=== PATIENT | male | born 1955 | race Caucasian/White ===

== ENCOUNTER 2016-04-06 12:00 | Outpatient (RCR) | payer BC ==
[2016-01-20 12:22] LABS: ADD PATHOLOGY DIFF REVIEW NO
[2016-01-20 12:26] LABS: MEAN CELL VOLUME 110 fl (80.0-100.0); MEAN CORPUSCULAR HGB CONC 34 g/dl (33.0-37.0); MEAN PLATELET VOLUME 10.2 fl (7.4-10.4); REDCELL DISTRIBUTION WIDTH-CV 17.8 % (11.5-14.5)
[2016-01-20 12:28] LABS: HEMATOCRIT 25.4 % (42.0-52.0); HEMOGLOBIN 8.7 g/dl (13.5-18.0); MEAN CORPUSCULAR HEMOGLOBIN 38 pg (27.0-31.0)
[2016-01-20 12:32] VITALS: BP 122/74; PULSE 69; TEMP 99
[2016-01-20 12:32] LABS: PLATELET COUNT 43 K/mm3 (130-400)
[2016-01-20 12:41] LABS: ADJUSTED CALCIUM 9.6 mg/dL (8.4-10.2); ALBUMIN 4.2 gm/dL (3.5-5.0); BILIRUBIN,TOTAL 0.7 mg/dL (0.0-1.0); CALCIUM 9.8 mg/dL (8.4-10.2); CREATININE, serum 0.7 mg/dL (0.66-1.25); POTASSIUM 4.6 mmol/L (3.4-5.0); TOTAL PROTEIN 6.5 gm/dL (6.4-8.2)
[2016-01-20 12:44] LABS: INR 1.1 (0.8-3.0); PROTHROMBIN TIME 12.1 SECONDS (9.7-12.8)
[2016-01-20 12:57] LABS: BAND 12 % (0-10); NEUTROPHILS 82 % (42.0-75.2); TOTAL CELLS COUNTED 100
[2016-01-20 12:58] LABS: PLATELET ESTIMATE DECREASED (NORMAL)
[2016-01-27 12:04] LABS: ADD PATHOLOGY DIFF REVIEW NO
[2016-01-27 12:10] LABS: MEAN CELL VOLUME 111 fl (80.0-100.0); MEAN CORPUSCULAR HGB CONC 34 g/dl (33.0-37.0); MEAN PLATELET VOLUME 11.2 fl (7.4-10.4); RED BLOOD COUNT 2.31 M/mm3 (4.20-5.60); REDCELL DISTRIBUTION WIDTH-CV 17.6 % (11.5-14.5); WHITE BLOOD COUNT 3.1 K/mm3 (4.8-10.8)
[2016-01-27 12:12] VITALS: BP 118/87; PULSE 86; TEMP 98.7
[2016-01-27 12:12] LABS: PROTHROMBIN TIME 36.1 SECONDS (9.7-12.8)
[2016-01-27 12:13] LABS: HEMATOCRIT 25.6 % (42.0-52.0); HEMOGLOBIN 8.8 g/dl (13.5-18.0); MEAN CORPUSCULAR HEMOGLOBIN 38 pg (27.0-31.0)
[2016-01-27 12:14] LABS: INR 3.1 (0.8-3.0); PLATELET COUNT 40 K/mm3 (130-400)
[2016-01-27 12:22] LABS: ADJUSTED CALCIUM 8.8 mg/dL (8.4-10.2); BILIRUBIN,TOTAL 0.7 mg/dL (0.0-1.0); CALCIUM 8.8 mg/dL (8.4-10.2); CREATININE, serum 0.62 mg/dL (0.66-1.25); POTASSIUM 4.3 mmol/L (3.4-5.0); TOTAL PROTEIN 6.5 gm/dL (6.4-8.2)
[2016-01-27 12:31] LABS: BAND 4 % (0-10); NEUTROPHILS 91 % (42.0-75.2); PLATELET ESTIMATE DECREASED (NORMAL); TOTAL CELLS COUNTED 100
[2016-01-29 15:13] LABS: KAPPA FREE LIGHT CHAIN-SERUM 9.47 mg/dL (()); KAPPA LAMBDA RATIO >374 (())
[2016-02-03 12:18] VITALS: BP 141/88; PULSE 78; TEMP 98.2
[2016-02-03 12:34] VITALS: BP 141/88; PULSE 86; TEMP 98.2
[2016-02-03 12:36] LABS: ADD PATHOLOGY DIFF REVIEW NO
[2016-02-03 12:50] LABS: ADJUSTED CALCIUM 9.4 mg/dL (8.4-10.2); ALBUMIN 3.7 gm/dL (3.5-5.0); BILIRUBIN,TOTAL 0.5 mg/dL (0.0-1.0); CALCIUM 9.2 mg/dL (8.4-10.2); CREATININE, serum 0.9 mg/dL (0.66-1.25); POTASSIUM 3.6 mmol/L (3.4-5.0); TOTAL PROTEIN 6.2 gm/dL (6.4-8.2)
[2016-02-03 12:51] LABS: MEAN CELL VOLUME 113 fl (80.0-100.0); MEAN CORPUSCULAR HGB CONC 34 g/dl (33.0-37.0); MEAN PLATELET VOLUME 10.9 fl (7.4-10.4); RED BLOOD COUNT 2.07 M/mm3 (4.20-5.60); REDCELL DISTRIBUTION WIDTH-CV 17.1 % (11.5-14.5); WHITE BLOOD COUNT 3.7 K/mm3 (4.8-10.8)
[2016-02-03 13:01] LABS: HEMATOCRIT 23.4 % (42.0-52.0); HEMOGLOBIN 7.9 g/dl (13.5-18.0); MEAN CORPUSCULAR HEMOGLOBIN 38 pg (27.0-31.0)
[2016-02-03 13:03] LABS: INR 5.1 (0.8-3.0); PROTHROMBIN TIME 59.1 SECONDS (9.7-12.8)
[2016-02-03 13:04] LABS: PLATELET COUNT 37 K/mm3 (130-400)
[2016-02-03 13:14] LABS: BAND 16 % (0-10); METAMYELOCYTE 2 % (0-0); MYELOCYTE 1 % (0-0); NEUTROPHILS 68 % (42.0-75.2); TOTAL CELLS COUNTED 100
[2016-02-03 13:15] LABS: ANISOCYTOSIS 1+; HYPOCHROMIA 1+
[2016-02-05] VITALS (9 sets, daily range): BP systolic 122–143; BP diastolic 84–99; PULSE 69–76; TEMP 98.3–98.5
[2016-02-05 16:05] LABS: INR 2.1 (0.8-3.0); PROTHROMBIN TIME 23.5 SECONDS (9.7-12.8)
[2016-02-10 12:23] LABS: ADD PATHOLOGY DIFF REVIEW NO
[2016-02-10 12:27] VITALS: BP 129/92; PULSE 77; TEMP 98.6
[2016-02-10 12:32] LABS: INR 1.9 (0.8-3.0); MEAN CELL VOLUME 102 fl (80.0-100.0); MEAN CORPUSCULAR HGB CONC 35 g/dl (33.0-37.0); MEAN PLATELET VOLUME 10.6 fl (7.4-10.4); RED BLOOD COUNT 3.03 M/mm3 (4.20-5.60); REDCELL DISTRIBUTION WIDTH-CV 19.9 % (11.5-14.5); WHITE BLOOD COUNT 5.2 K/mm3 (4.8-10.8)
[2016-02-10 12:37] LABS: HEMATOCRIT 30.9 % (42.0-52.0); HEMOGLOBIN 10.9 g/dl (13.5-18.0); MEAN CORPUSCULAR HEMOGLOBIN 36 pg (27.0-31.0)
[2016-02-10 12:40] LABS: ADJUSTED CALCIUM 9.6 mg/dL (8.4-10.2); ALBUMIN 4.2 gm/dL (3.5-5.0); BILIRUBIN,TOTAL 0.8 mg/dL (0.0-1.0); CALCIUM 9.8 mg/dL (8.4-10.2); CREATININE, serum 0.78 mg/dL (0.66-1.25); MAGNESIUM 1.8 mg/dL (1.6-2.3); POTASSIUM 4.2 mmol/L (3.4-5.0); TOTAL PROTEIN 6.8 gm/dL (6.4-8.2)
[2016-02-10 12:53] LABS: PLATELET COUNT 37 K/mm3 (130-400)
[2016-02-10 14:04] LABS: BAND 14 % (0-10); HYPOCHROMIA 1+; NEUTROPHILS 73 % (42.0-75.2); PLATELET ESTIMATE DECREASED (NORMAL); POLYCHROMASIA 1+; TOTAL CELLS COUNTED 100
[2016-02-10 14:05] LABS: ANISOCYTOSIS 2+
[2016-02-17 12:20] VITALS: BP 152/96; PULSE 77; TEMP 98.2
[2016-02-17 12:21] LABS: ADD PATHOLOGY DIFF REVIEW NO
[2016-02-17 12:30] LABS: MEAN CELL VOLUME 103 fl (80.0-100.0); MEAN CORPUSCULAR HGB CONC 35 g/dl (33.0-37.0); MEAN PLATELET VOLUME 10.2 fl (7.4-10.4); RED BLOOD COUNT 2.62 M/mm3 (4.20-5.60); REDCELL DISTRIBUTION WIDTH-CV 19.9 % (11.5-14.5); WHITE BLOOD COUNT 5.6 K/mm3 (4.8-10.8)
[2016-02-17 12:32] LABS: INR 2.5 (0.8-3.0); PROTHROMBIN TIME 28.3 SECONDS (9.7-12.8)
[2016-02-17 12:33] LABS: HEMATOCRIT 26.9 % (42.0-52.0); HEMOGLOBIN 9.5 g/dl (13.5-18.0); MEAN CORPUSCULAR HEMOGLOBIN 36 pg (27.0-31.0)
[2016-02-17 12:35] LABS: PLATELET COUNT 42 K/mm3 (130-400)
[2016-02-17 12:45] LABS: ADJUSTED CALCIUM 9.3 mg/dL (8.4-10.2); ALBUMIN 3.9 gm/dL (3.5-5.0); BILIRUBIN,TOTAL 0.5 mg/dL (0.0-1.0); CALCIUM 9.2 mg/dL (8.4-10.2); CREATININE, serum 0.88 mg/dL (0.66-1.25); POTASSIUM 3.7 mmol/L (3.4-5.0); TOTAL PROTEIN 6.3 gm/dL (6.4-8.2)
[2016-02-17 13:28] LABS: BAND 16 % (0-10); NEUTROPHILS 58 % (42.0-75.2); TOTAL CELLS COUNTED 100
[2016-02-17 13:29] LABS: ANISOCYTOSIS 2+; PLATELET ESTIMATE DECREASED (NORMAL)
[2016-02-20 13:36] LABS: KAPPA FREE LIGHT CHAIN-SERUM 10.5 mg/dL (()); KAPPA LAMBDA RATIO >412 (())
[2016-02-24 12:09] VITALS: BP 140/96; PULSE 80; TEMP 99
[2016-02-24 12:30] LABS: ADD PATHOLOGY DIFF REVIEW NO
[2016-02-24 12:41] LABS: MEAN CELL VOLUME 102 fl (80.0-100.0); MEAN CORPUSCULAR HGB CONC 35 g/dl (33.0-37.0); MEAN PLATELET VOLUME 10.3 fl (7.4-10.4); RED BLOOD COUNT 2.37 M/mm3 (4.20-5.60); REDCELL DISTRIBUTION WIDTH-CV 19.7 % (11.5-14.5)
[2016-02-24 12:44] LABS: ADJUSTED CALCIUM 9.2 mg/dL (8.4-10.2); ALBUMIN 3.5 gm/dL (3.5-5.0); BILIRUBIN,TOTAL 0.8 mg/dL (0.0-1.0); CALCIUM 8.8 mg/dL (8.4-10.2); CREATININE, serum 0.88 mg/dL (0.66-1.25); TOTAL PROTEIN 5.9 gm/dL (6.4-8.2)
[2016-02-24 12:48] LABS: HEMATOCRIT 24.2 % (42.0-52.0); HEMOGLOBIN 8.4 g/dl (13.5-18.0); MEAN CORPUSCULAR HEMOGLOBIN 35 pg (27.0-31.0); PLATELET COUNT 32 K/mm3 (130-400); WHITE BLOOD COUNT 1.6 K/mm3 (4.8-10.8)
[2016-02-24 12:58] LABS: INR 1.5 (0.8-3.0); PROTHROMBIN TIME 16.4 SECONDS (9.7-12.8)
[2016-02-24 13:25] LABS: BAND 19 % (0-10); METAMYELOCYTE 2 % (0-0); NEUTROPHILS 32 % (42.0-75.2); PLATELET ESTIMATE DECREASED (NORMAL); POLYCHROMASIA 1+; TOTAL CELLS COUNTED 100
[2016-02-24 13:26] LABS: ANISOCYTOSIS 2+
[2016-03-02 12:17] VITALS: BP 152/95; PULSE 94; TEMP 98.4
[2016-03-02 12:19] LABS: ADD PATHOLOGY DIFF REVIEW NO
[2016-03-02 12:33] LABS: ADJUSTED CALCIUM 9.4 mg/dL (8.4-10.2); ALBUMIN 3.6 gm/dL (3.5-5.0); BILIRUBIN,TOTAL 0.5 mg/dL (0.0-1.0); CALCIUM 9.1 mg/dL (8.4-10.2); CREATININE, serum 0.85 mg/dL (0.66-1.25); INR 2.8 (0.8-3.0); POTASSIUM 3.4 mmol/L (3.4-5.0); PROTHROMBIN TIME 32.6 SECONDS (9.7-12.8)
[2016-03-02 12:48] LABS: MEAN CELL VOLUME 104 fl (80.0-100.0); MEAN CORPUSCULAR HGB CONC 34 g/dl (33.0-37.0); MEAN PLATELET VOLUME 11.1 fl (7.4-10.4); RED BLOOD COUNT 2.39 M/mm3 (4.20-5.60); REDCELL DISTRIBUTION WIDTH-CV 19.7 % (11.5-14.5)
[2016-03-02 12:54] LABS: HEMATOCRIT 24.9 % (42.0-52.0); HEMOGLOBIN 8.5 g/dl (13.5-18.0); MEAN CORPUSCULAR HEMOGLOBIN 36 pg (27.0-31.0); PLATELET COUNT 68 K/mm3 (130-400)
[2016-03-02 16:57] LABS: BAND 8 % (0-10); NEUTROPHILS 46 % (42.0-75.2); TOTAL CELLS COUNTED 100
[2016-03-02 16:58] LABS: ANISOCYTOSIS 2+; PLATELET ESTIMATE DECREASED (NORMAL); POLYCHROMASIA 1+
[2016-03-02 16:59] LABS: TEAR DROP CELLS 1+
[2016-03-09 12:18] LABS: ADD PATHOLOGY DIFF REVIEW NO
[2016-03-09 12:29] LABS: MEAN CELL VOLUME 106 fl (80.0-100.0); MEAN CORPUSCULAR HGB CONC 34 g/dl (33.0-37.0); MEAN PLATELET VOLUME 12.4 fl (7.4-10.4); RED BLOOD COUNT 2.57 M/mm3 (4.20-5.60); REDCELL DISTRIBUTION WIDTH-CV 19.9 % (11.5-14.5); WHITE BLOOD COUNT 3.9 K/mm3 (4.8-10.8)
[2016-03-09 12:31] LABS: INR 1.9 (0.8-3.0); PROTHROMBIN TIME 20.9 SECONDS (9.7-12.8)
[2016-03-09 12:33] LABS: HEMATOCRIT 27.3 % (42.0-52.0); HEMOGLOBIN 9.3 g/dl (13.5-18.0); MEAN CORPUSCULAR HEMOGLOBIN 36 pg (27.0-31.0)
[2016-03-09 12:34] LABS: PLATELET COUNT 45 K/mm3 (130-400)
[2016-03-09 12:34] LABS: ADJUSTED CALCIUM 9.3 mg/dL (8.4-10.2); ALBUMIN 3.8 gm/dL (3.5-5.0); BILIRUBIN,TOTAL 0.9 mg/dL (0.0-1.0); CALCIUM 9.1 mg/dL (8.4-10.2); CREATININE, serum 0.74 mg/dL (0.66-1.25); MAGNESIUM 1.3 mg/dL (1.6-2.3); POTASSIUM 3.6 mmol/L (3.4-5.0); TOTAL PROTEIN 6.1 gm/dL (6.4-8.2)
[2016-03-09 12:36] VITALS: BP 140/88; PULSE 72; TEMP 98.6
[2016-03-09 12:42] LABS: BAND 5 % (0-10); NEUTROPHILS 62 % (42.0-75.2); TOTAL CELLS COUNTED 100
[2016-03-09 12:43] LABS: PLATELET ESTIMATE DECREASED (NORMAL)
[2016-03-11 18:17] LABS: KAPPA FREE LIGHT CHAIN-SERUM 5.28 mg/dL (()); KAPPA LAMBDA RATIO >207 (())
[2016-03-16 12:05] VITALS: BP 137/79; PULSE 45; TEMP 98.8
[2016-03-16 12:17] LABS: ADD PATHOLOGY DIFF REVIEW NO
[2016-03-16 12:21] LABS: MEAN CELL VOLUME 106 fl (80.0-100.0); MEAN CORPUSCULAR HGB CONC 34 g/dl (33.0-37.0); MEAN PLATELET VOLUME 10.6 fl (7.4-10.4); PLATELET COUNT 88 K/mm3 (130-400); RED BLOOD COUNT 2.64 M/mm3 (4.20-5.60); REDCELL DISTRIBUTION WIDTH-CV 18.3 % (11.5-14.5); WHITE BLOOD COUNT 4.2 K/mm3 (4.8-10.8)
[2016-03-16 12:22] LABS: HEMATOCRIT 27.9 % (42.0-52.0); HEMOGLOBIN 9.4 g/dl (13.5-18.0); MEAN CORPUSCULAR HEMOGLOBIN 36 pg (27.0-31.0)
[2016-03-16 12:31] LABS: INR 2.1 (0.8-3.0); PROTHROMBIN TIME 23.3 SECONDS (9.7-12.8)
[2016-03-16 12:40] LABS: ADJUSTED CALCIUM 9.1 mg/dL (8.4-10.2); ALBUMIN 3.7 gm/dL (3.5-5.0); BILIRUBIN,TOTAL 0.8 mg/dL (0.0-1.0); CALCIUM 8.9 mg/dL (8.4-10.2); CREATININE, serum 0.77 mg/dL (0.66-1.25); MAGNESIUM 1.6 mg/dL (1.6-2.3); POTASSIUM 3.3 mmol/L (3.4-5.0); TOTAL PROTEIN 6.3 gm/dL (6.4-8.2)
[2016-03-16 12:44] LABS: BAND 5 % (0-10); EOSINOPHIL 2 % (0-4); NEUTROPHILS 71 % (42.0-75.2); TOTAL CELLS COUNTED 100
[2016-03-16 12:45] LABS: HYPOCHROMIA 2+; MICROCYTOSIS 2+
[2016-03-24 14:24] VITALS: BP 158/84; PULSE 75; TEMP 98.6
[2016-03-24 15:05] LABS: ADD PATHOLOGY DIFF REVIEW NO
[2016-03-24 15:08] LABS: MEAN CELL VOLUME 106 fl (80.0-100.0); MEAN CORPUSCULAR HGB CONC 34 g/dl (33.0-37.0); RED BLOOD COUNT 2.84 M/mm3 (4.20-5.60); WHITE BLOOD COUNT 5.2 K/mm3 (4.8-10.8)
[2016-03-24 15:11] LABS: INR 2.1 (0.8-3.0); PROTHROMBIN TIME 23.4 SECONDS (9.7-12.8)
[2016-03-24 15:12] LABS: HEMOGLOBIN 10.1 g/dl (13.5-18.0); MEAN CORPUSCULAR HEMOGLOBIN 36 pg (27.0-31.0)
[2016-03-24 15:13] LABS: PLATELET COUNT 50 K/mm3 (130-400)
[2016-03-24 15:19] LABS: ADJUSTED CALCIUM 9.3 mg/dL (8.4-10.2); ALBUMIN 4.1 gm/dL (3.5-5.0); BILIRUBIN,TOTAL 1.1 mg/dL (0.0-1.0); CALCIUM 9.4 mg/dL (8.4-10.2); CREATININE, serum 0.8 mg/dL (0.66-1.25); TOTAL PROTEIN 6.7 gm/dL (6.4-8.2)
[2016-03-24 15:52] LABS: BAND 24 % (0-10); EOSINOPHIL 3 % (0-4); NEUTROPHILS 45 % (42.0-75.2); TOTAL CELLS COUNTED 100
[2016-03-24 15:53] LABS: ANISOCYTOSIS 2+; PLATELET ESTIMATE DECREASED (NORMAL)
[2016-03-30 12:00] VITALS: BP 156/74; PULSE 89; TEMP 98.6
[2016-03-30 12:31] LABS: ADD PATHOLOGY DIFF REVIEW NO
[2016-03-30 12:40] LABS: MEAN CELL VOLUME 107 fl (80.0-100.0); MEAN CORPUSCULAR HGB CONC 33 g/dl (33.0-37.0); MEAN PLATELET VOLUME 10.9 fl (7.4-10.4); PLATELET COUNT 97 K/mm3 (130-400); RED BLOOD COUNT 2.75 M/mm3 (4.20-5.60); REDCELL DISTRIBUTION WIDTH-CV 16.7 % (11.5-14.5)
[2016-03-30 12:42] LABS: HEMATOCRIT 29.3 % (42.0-52.0); HEMOGLOBIN 9.8 g/dl (13.5-18.0); MEAN CORPUSCULAR HEMOGLOBIN 36 pg (27.0-31.0)
[2016-03-30 12:47] LABS: INR 2.8 (0.8-3.0); PROTHROMBIN TIME 31.7 SECONDS (9.7-12.8)
[2016-03-30 12:49] LABS: ADJUSTED CALCIUM 9.5 mg/dL (8.4-10.2); ALBUMIN 3.7 gm/dL (3.5-5.0); BAND 9 % (0-10); BILIRUBIN,TOTAL 0.8 mg/dL (0.0-1.0); CALCIUM 9.3 mg/dL (8.4-10.2); CREATININE, serum 0.8 mg/dL (0.66-1.25); EOSINOPHIL 3 % (0-4); MAGNESIUM 1.8 mg/dL (1.6-2.3); NEUTROPHILS 62 % (42.0-75.2); POTASSIUM 4.1 mmol/L (3.4-5.0); TOTAL CELLS COUNTED 100; TOTAL PROTEIN 6.2 gm/dL (6.4-8.2)
[2016-03-30 12:50] LABS: ANISOCYTOSIS 2+; PLATELET ESTIMATE DECREASED (NORMAL)
[2016-04-01 21:10] LABS: KAPPA FREE LIGHT CHAIN-SERUM 10.6 mg/dL (()); KAPPA LAMBDA RATIO 86.2 (())
[~2016-04-06] VITALS: Ht 170.2 cm; Wt 80.0 kg
[~2016-04-06 12:00] MED LIST: AMBIEN 10MG10 MG PO; AMBIEN 5MG TABLE5 MG PO; ASPIRIN E.C. 8181 MG PO; CALCIUM 600 W/V1 TAB PO; CEPHALEXIN500 M1 PO; CLEOCIN HCL300 MG PO; CORDARONE200 MG/TAB PO; COUMADIN 22.5 MG/TAB PO; COUMADIN 5MG5 MG/TAB PO; DECADRON 4MG TAB4 MG PO; FLEXERIL 1010 MG/TAB PO; GLUCOPHAGE500 MG/TAB PO; HYDROCORTISONE30 G1 TP; INSPRA50 MG PO; K-DUR 10 MEQ T10 MEQ PO; K-DUR 2020 MEQ PO; LANOXIN 0.120.125 MG PO; LANOXIN 0.25M0.25 MG PO; LASIX 40MG TABL40 MG PO; LEVAQUIN 5500 MG/TA1 PO; LOPRESSOR 225 MG/TAB PO; LOPRESSOR 550 MG/TAB PO; LORTAB 5/500 501 TAB PO; LOVENOX 3030 MG/0.3 SQ; MAG-OX 400400 MG/TAB PO; MICARDIS HCT 121 TA1 PO; NORCO 325 MG-51 TAB PO; PRAVACHOL 40MG40 MG PO; PREDNISONE20 MG PO; REVLIMID10 MG PO; TOPROL XL 50MG50 MG PO; TYLENOL 325MG325 MG PO; VASOTEC 2.2.5 MG/TAB PO; ZOMETA INJ4 MG/VIAL IV; ZOVIRAX400 MG PO
[2016-04-06 12:14] VITALS: BP 155/95; PULSE 75; TEMP 98
== END 2016-04-06 12:20 | disposition home or self-care (01) ==
LOC: EUO 12:00
PROVIDERS: Internal Medicine
DX: C90.00 Multiple myeloma not having achieved remission (principal); I48.91 Unspecified atrial fibrillation; Z79.01 Long term (current) use of anticoagulants
CPT/HCPCS: J1644; J7050; P9040

== ENCOUNTER → 2016-11-04 | Outpatient (CLI) | payer BC ==
[~2016-11-04] MED LIST changes: +BACTRIM DS 8001 TAB PO; +DIFLUCAN150 MG PO; +EMPLICITI300 MG IV; +LEXAPRO 10MG10 MG PO; +REVLIMID25 MG PO; +TUMS ULTRA ST1000 MG PO
== END ==
LOC: ZCOL.LAB 16:02
DX: W19.XXXA Unspecified fall, initial encounter (principal); Z79.01 Long term (current) use of anticoagulants

== ENCOUNTER 2016-11-25 11:31 | Inpatient (IN) | payer BC ==
[~2016-11-25] VITALS: Wt 84.7 kg
[~2016-11-25 11:31] MED LIST changes: -BACTRIM DS 8001 TAB PO; -DIFLUCAN150 MG PO; -EMPLICITI300 MG IV; -LEXAPRO 10MG10 MG PO; -REVLIMID25 MG PO; -TUMS ULTRA ST1000 MG PO
[2016-11-25 11:49] VITALS: BP 116/62; PULSE 74; TEMP 103
[2016-11-25 12:40] VITALS: BP 116/62; PULSE 74; TEMP 103
[2016-11-25] MEDS ORDERED: TYLENOL 325MG325 MG PO (13:11)
[2016-11-25] MEDS ORDERED: TUMS ULTRA ST1000 MG PO (13:12)
[2016-11-25] MEDS ORDERED: REVLIMID25 MG PO (13:14)
[2016-11-25] MEDS ORDERED: MAG-OX 400400 MG/TAB PO (13:17)
[2016-11-25] MEDS ORDERED: LEXAPRO 10MG10 MG PO (13:19)
[2016-11-25] MEDS ORDERED: EMPLICITI300 MG IV (13:21)
[2016-11-25 13:42] LABS: MEAN CELL VOLUME 100 fl (80.0-100.0); MEAN CORPUSCULAR HGB CONC 35 g/dl (33.0-37.0); MEAN PLATELET VOLUME 10.4 fl (7.4-10.4); PLATELET COUNT 111 K/mm3 (130-400); REDCELL DISTRIBUTION WIDTH-CV 14.5 % (11.5-14.5); WHITE BLOOD COUNT 4.3 K/mm3 (4.8-10.8)
[2016-11-25 13:46] LABS: HEMOGLOBIN 10.4 g/dl (13.5-18.0); MEAN CORPUSCULAR HEMOGLOBIN 35 pg (27.0-31.0)
[2016-11-25 13:47] LABS: ADD PATHOLOGY DIFF REVIEW NO
[2016-11-25 14:03] LABS: ADJUSTED CALCIUM 8.8 mg/dL (8.4-10.2); ALBUMIN 3.5 gm/dL (3.5-5.0); BILIRUBIN,TOTAL 0.7 mg/dL (0.0-1.0); CALCIUM 8.4 mg/dL (8.4-10.2); CREATININE, serum 0.87 mg/dL (0.66-1.25); POTASSIUM 3.4 mmol/L (3.4-5.0); TOTAL PROTEIN 5.8 gm/dL (6.4-8.2)
[2016-11-25 14:13] LABS: INR 3.7 (0.8-3.0); PROTHROMBIN TIME 43.3 SECONDS (9.7-12.8)
[2016-11-25 14:18] LABS: BAND 14 % (0-10); NEUTROPHILS 71 % (42.0-75.2); TOTAL CELLS COUNTED 100
[2016-11-25 15:05] LABS: PH 7 (5-8); SQUAMOUS EPITHELIAL None Seen /hpf; URINE APPEARANCE Clear; URINE BACTERIA None Seen /hpf; URINE BILIRUBIN Negative (NEGATIVE); URINE BLOOD Negative (NEGATIVE); URINE COLOR Straw; URINE GLUCOSE Negative (NEGATIVE); URINE KETONE Negative (NEGATIVE); URINE RBC 0-2 /hpf; URINE UROBILINOGEN Negative (NEGATIVE); URINE WBC 0-2 /hpf
[2016-11-25 15:47] VITALS: BP 113/79; PULSE 70; TEMP 100.5
[2016-11-25 19:23] VITALS: BP 113/70; PULSE 75; TEMP 100.5
[2016-11-26 00:07] VITALS: BP 143/90; PULSE 73; TEMP 102.8
[2016-11-26 03:56] VITALS: BP 120/77; PULSE 73; TEMP 99.9
[2016-11-26 07:09] LABS: MEAN CELL VOLUME 102 fl (80.0-100.0); MEAN CORPUSCULAR HGB CONC 34 g/dl (33.0-37.0); MEAN PLATELET VOLUME 10.6 fl (7.4-10.4); PLATELET COUNT 98 K/mm3 (130-400); RED BLOOD COUNT 2.71 M/mm3 (4.20-5.60); REDCELL DISTRIBUTION WIDTH-CV 14.9 % (11.5-14.5); WHITE BLOOD COUNT 3.4 K/mm3 (4.8-10.8)
[2016-11-26 07:17] LABS: ADD PATHOLOGY DIFF REVIEW NO; HEMATOCRIT 27.5 % (42.0-52.0); HEMOGLOBIN 9.4 g/dl (13.5-18.0); MEAN CORPUSCULAR HEMOGLOBIN 35 pg (27.0-31.0)
[2016-11-26 07:24] LABS: INR 1.8 (0.8-3.0); PROTHROMBIN TIME 20.9 SECONDS (9.7-12.8)
[2016-11-26 07:36] LABS: CALCIUM 8.2 mg/dL (8.4-10.2); CREATININE, serum 0.76 mg/dL (0.66-1.25); MAGNESIUM 1.9 mg/dL (1.6-2.3)
[2016-11-26 08:04] LABS: BAND 4 % (0-10); BASOPHIL 1 % (0-2); EOSINOPHIL 1 % (0-4); METAMYELOCYTE 3 % (0-0); NEUTROPHILS 84 % (42.0-75.2); TOTAL CELLS COUNTED 100
[2016-11-26 08:05] LABS: TOXIC GRANULATION PRESENT
[2016-11-26 08:06] LABS: HYPOCHROMIA 2+; MICROCYTOSIS 2+; POIKILOCYTOSIS 2+; POLYCHROMASIA 2+
[2016-11-26 08:07] LABS: ANISOCYTOSIS 2+; ROULEAUX 1+
[2016-11-26 08:22] VITALS: BP 141/87; PULSE 71; TEMP 99
[2016-11-26 11:41] VITALS: BP 127/109; PULSE 100; TEMP 101.4
[2016-11-26 16:16] VITALS: BP 127/81; PULSE 77; TEMP 100.6
[2016-11-26 19:18] VITALS: BP 140/94; PULSE 87; TEMP 98.6
[2016-11-27] VITALS (7 sets, daily range): BP systolic 128–143; BP diastolic 68–91; PULSE 70–84; TEMP 99–102
[2016-11-27 07:50] LABS: MEAN CELL VOLUME 102 fl (80.0-100.0); MEAN CORPUSCULAR HGB CONC 33 g/dl (33.0-37.0); MEAN PLATELET VOLUME 10.2 fl (7.4-10.4); PLATELET COUNT 92 K/mm3 (130-400); RED BLOOD COUNT 2.51 M/mm3 (4.20-5.60); REDCELL DISTRIBUTION WIDTH-CV 14.7 % (11.5-14.5); WHITE BLOOD COUNT 2.8 K/mm3 (4.8-10.8)
[2016-11-27 08:06] LABS: HEMATOCRIT 25.5 % (42.0-52.0); HEMOGLOBIN 8.5 g/dl (13.5-18.0); MEAN CORPUSCULAR HEMOGLOBIN 34 pg (27.0-31.0)
[2016-11-27 08:08] LABS: INR 1.5 (0.8-3.0)
[2016-11-27 08:21] LABS: CALCIUM 8.3 mg/dL (8.4-10.2); CREATININE, serum 0.7 mg/dL (0.66-1.25)
[2016-11-27 08:29] LABS: POTASSIUM 2.9 mmol/L (3.4-5.0)
[2016-11-28 03:40] VITALS: BP 134/90; PULSE 81; TEMP 99.9
[2016-11-28 06:02] LABS: MEAN CELL VOLUME 100 fl (80.0-100.0); MEAN CORPUSCULAR HGB CONC 35 g/dl (33.0-37.0); MEAN PLATELET VOLUME 10.5 fl (7.4-10.4); PLATELET COUNT 90 K/mm3 (130-400); RED BLOOD COUNT 2.48 M/mm3 (4.20-5.60); REDCELL DISTRIBUTION WIDTH-CV 14.4 % (11.5-14.5); WHITE BLOOD COUNT 2.5 K/mm3 (4.8-10.8)
[2016-11-28 06:29] LABS: ADD PATHOLOGY DIFF REVIEW NO; HEMATOCRIT 24.8 % (42.0-52.0); HEMOGLOBIN 8.6 g/dl (13.5-18.0); MEAN CORPUSCULAR HEMOGLOBIN 35 pg (27.0-31.0)
[2016-11-28 06:38] LABS: CALCIUM 8.2 mg/dL (8.4-10.2); CREATININE, serum 0.68 mg/dL (0.66-1.25); POTASSIUM 3.2 mmol/L (3.4-5.0)
[2016-11-28 07:12] VITALS: BP 134/85; PULSE 71; TEMP 100.1
[2016-11-28 07:25] LABS: BAND 8 % (0-10); BASOPHIL 6 % (0-2); EOSINOPHIL 2 % (0-4); METAMYELOCYTE 2 % (0-0); NEUTROPHILS 62 % (42.0-75.2); PLATELET ESTIMATE DECREASED (NORMAL); TOTAL CELLS COUNTED 100
[2016-11-28 07:27] LABS: TEAR DROP CELLS 1+
[2016-11-28 12:09] VITALS: BP 128/84; PULSE 70; TEMP 101.3
[2016-11-28 14:26] LABS: INR 1.6 (0.8-3.0); PROTHROMBIN TIME 17.6 SECONDS (9.7-12.8)
[2016-11-28 15:14] VITALS: BP 132/86; PULSE 78; TEMP 99.3
[2016-11-28 20:16] VITALS: BP 134/81; PULSE 77; TEMP 100.1
[2016-11-28 23:00] VITALS: BP 135/87; PULSE 72; TEMP 99.7
[2016-11-29 03:09] VITALS: BP 133/83; PULSE 76; TEMP 100.3
[2016-11-29 06:53] LABS: MEAN CELL VOLUME 100 fl (80.0-100.0); MEAN CORPUSCULAR HGB CONC 34 g/dl (33.0-37.0); MEAN PLATELET VOLUME 10.6 fl (7.4-10.4); PLATELET COUNT 106 K/mm3 (130-400); RED BLOOD COUNT 2.64 M/mm3 (4.20-5.60); REDCELL DISTRIBUTION WIDTH-CV 14.8 % (11.5-14.5); WHITE BLOOD COUNT 2.7 K/mm3 (4.8-10.8)
[2016-11-29 06:55] LABS: ADD PATHOLOGY DIFF REVIEW NO; HEMATOCRIT 26.5 % (42.0-52.0); HEMOGLOBIN 9.1 g/dl (13.5-18.0); MEAN CORPUSCULAR HEMOGLOBIN 34 pg (27.0-31.0)
[2016-11-29 07:04] LABS: INR 1.6 (0.8-3.0); PROTHROMBIN TIME 17.6 SECONDS (9.7-12.8)
[2016-11-29 07:13] LABS: CALCIUM 8.5 mg/dL (8.4-10.2); CREATININE, serum 0.68 mg/dL (0.66-1.25); POTASSIUM 3.1 mmol/L (3.4-5.0)
[2016-11-29 07:32] VITALS: BP 149/90; PULSE 75; TEMP 99.4
[2016-11-29 08:28] LABS: BAND 18 % (0-10); BASOPHIL 1 % (0-2); EOSINOPHIL 2 % (0-4); METAMYELOCYTE 3 % (0-0); MYELOCYTE 1 % (0-0); NEUTROPHILS 61 % (42.0-75.2); PLATELET ESTIMATE DECREASED (NORMAL); TEAR DROP CELLS 1+; TOTAL CELLS COUNTED 100
[2016-11-29 11:22] VITALS: BP 139/89; PULSE 75; TEMP 98.8
[2016-11-29 15:33] VITALS: BP 131/90; PULSE 79; TEMP 99.6
[2016-11-29 19:25] VITALS: BP 137/92; PULSE 84; TEMP 101
[2016-11-29 23:56] VITALS: BP 113/94; PULSE 78; TEMP 100.8
[2016-11-30] VITALS (7 sets, daily range): BP systolic 122–150; BP diastolic 77–87; PULSE 61–86; TEMP 98.2–101
[2016-11-30 07:21] LABS: ADD PATHOLOGY DIFF REVIEW NO
[2016-11-30 07:25] LABS: MEAN CELL VOLUME 100 fl (80.0-100.0); MEAN CORPUSCULAR HGB CONC 33 g/dl (33.0-37.0); MEAN PLATELET VOLUME 11.1 fl (7.4-10.4); PLATELET COUNT 90 K/mm3 (130-400); RED BLOOD COUNT 2.48 M/mm3 (4.20-5.60); REDCELL DISTRIBUTION WIDTH-CV 14.7 % (11.5-14.5); WHITE BLOOD COUNT 2.6 K/mm3 (4.8-10.8)
[2016-11-30 07:41] LABS: HEMATOCRIT 24.7 % (42.0-52.0); HEMOGLOBIN 8.2 g/dl (13.5-18.0); MEAN CORPUSCULAR HEMOGLOBIN 33 pg (27.0-31.0)
[2016-11-30 07:46] LABS: CALCIUM 8.7 mg/dL (8.4-10.2); CREATININE, serum 0.69 mg/dL (0.66-1.25); MAGNESIUM 1.9 mg/dL (1.6-2.3); POTASSIUM 3.1 mmol/L (3.4-5.0)
[2016-11-30 08:00] LABS: INR 1.9 (0.8-3.0); PROTHROMBIN TIME 21.8 SECONDS (9.7-12.8)
[2016-11-30 12:05] LABS: BAND 17 % (0-10); EOSINOPHIL 2 % (0-4); METAMYELOCYTE 2 % (0-0); NEUTROPHILS 71 % (42.0-75.2); PLATELET ESTIMATE DECREASED (NORMAL); TOTAL CELLS COUNTED 100
[2016-12-01 04:02] VITALS: BP 134/91; PULSE 83; TEMP 100.1
[2016-12-01 07:29] LABS: MEAN CELL VOLUME 100 fl (80.0-100.0); MEAN CORPUSCULAR HGB CONC 33 g/dl (33.0-37.0); MEAN PLATELET VOLUME 11.6 fl (7.4-10.4); PLATELET COUNT 108 K/mm3 (130-400); REDCELL DISTRIBUTION WIDTH-CV 14.6 % (11.5-14.5); WHITE BLOOD COUNT 2.8 K/mm3 (4.8-10.8)
[2016-12-01 07:31] LABS: HEMATOCRIT 25.1 % (42.0-52.0); HEMOGLOBIN 8.3 g/dl (13.5-18.0); MEAN CORPUSCULAR HEMOGLOBIN 33 pg (27.0-31.0)
[2016-12-01 07:32] LABS: ADD PATHOLOGY DIFF REVIEW NO
[2016-12-01 07:42] LABS: CALCIUM 8.5 mg/dL (8.4-10.2); CREATININE, serum 0.68 mg/dL (0.66-1.25); POTASSIUM 3.3 mmol/L (3.4-5.0)
[2016-12-01 07:43] VITALS: BP 126/87; PULSE 77; TEMP 100.5
[2016-12-01 08:01] LABS: BAND 30 % (0-10); BASOPHIL 2 % (0-2); NEUTROPHILS 44 % (42.0-75.2); TOTAL CELLS COUNTED 100
[2016-12-01 08:05] LABS: PLATELET ESTIMATE DECREASED (NORMAL); STOMATOCYTE 1+
[2016-12-01 08:07] LABS: ANISOCYTOSIS 1+; POLYCHROMASIA 1+; SPHEROCYTE 1+
[2016-12-01 10:19] LABS: INR 1.9 (0.8-3.0); PROTHROMBIN TIME 21.1 SECONDS (9.7-12.8)
[2016-12-01 10:57] VITALS: BP 118/73; PULSE 115; TEMP 98.8
[2016-12-01 12:55] VITALS: BP 126/82; PULSE 79; TEMP 99.4
[2016-12-01 15:00] VITALS: BP 124/79; PULSE 71; TEMP 100.5
[2016-12-01 18:20] VITALS: BP 139/82; PULSE 76; TEMP 101.4
[2016-12-02 00:09] VITALS: BP 136/97; PULSE 89; TEMP 99.1
[2016-12-02 04:00] VITALS: BP 133/81; PULSE 79; TEMP 100.7
[2016-12-02 05:36] LABS: BASO % 1.2 % (0.0-2.0); EOS # 0.1 (0.0-0.7); EOS % 2.4 % (0-4.0); GRAN % 77.6 % (42.2-75.2); LYMPH # 0.3 (1.2-3.4); MEAN CELL VOLUME 98 fl (80.0-100.0); MEAN CORPUSCULAR HGB CONC 33 g/dl (33.0-37.0); MEAN PLATELET VOLUME 11.4 fl (7.4-10.4); MONO # 0.2 (0.1-0.6); MONO % 7.6 % (1.7-9.3); PLATELET COUNT 102 K/mm3 (130-400); RED BLOOD COUNT 2.53 M/mm3 (4.20-5.60); REDCELL DISTRIBUTION WIDTH-CV 14.5 % (11.5-14.5); WHITE BLOOD COUNT 2.5 K/mm3 (4.8-10.8)
[2016-12-02 05:37] LABS: HEMATOCRIT 24.9 % (42.0-52.0); HEMOGLOBIN 8.3 g/dl (13.5-18.0); MEAN CORPUSCULAR HEMOGLOBIN 33 pg (27.0-31.0)
[2016-12-02 05:48] LABS: CALCIUM 8.6 mg/dL (8.4-10.2); CREATININE, serum 0.7 mg/dL (0.66-1.25); POTASSIUM 3.5 mmol/L (3.4-5.0)
[2016-12-02 07:40] LABS: INR 2.1 (0.8-3.0); PROTHROMBIN TIME 23.5 SECONDS (9.7-12.8)
[2016-12-02 08:52] VITALS: BP 121/86; PULSE 80; TEMP 99.4
[2016-12-02 12:15] VITALS: BP 135/85; PULSE 80; TEMP 98.7
[2016-12-02 15:27] VITALS: BP 121/81; PULSE 88; TEMP 99.1
[2016-12-02 22:33] VITALS: BP 107/68; PULSE 80; TEMP 98.2
[2016-12-03 03:38] VITALS: BP 144/85; PULSE 84; TEMP 98.6; TEMP 99.6
[2016-12-03 06:33] LABS: MEAN CELL VOLUME 100 fl (80.0-100.0); MEAN CORPUSCULAR HGB CONC 33 g/dl (33.0-37.0); MEAN PLATELET VOLUME 11.5 fl (7.4-10.4); PLATELET COUNT 99 K/mm3 (130-400); RED BLOOD COUNT 2.53 M/mm3 (4.20-5.60); REDCELL DISTRIBUTION WIDTH-CV 14.9 % (11.5-14.5); WHITE BLOOD COUNT 2.5 K/mm3 (4.8-10.8)
[2016-12-03 06:36] LABS: INR 2.7 (0.8-3.0); PROTHROMBIN TIME 31.3 SECONDS (9.7-12.8)
[2016-12-03 06:38] LABS: ADD PATHOLOGY DIFF REVIEW NO; HEMATOCRIT 25.4 % (42.0-52.0); HEMOGLOBIN 8.3 g/dl (13.5-18.0); MEAN CORPUSCULAR HEMOGLOBIN 33 pg (27.0-31.0)
[2016-12-03 06:45] LABS: CALCIUM 8.6 mg/dL (8.4-10.2); CREATININE, serum 0.77 mg/dL (0.66-1.25); POTASSIUM 3.4 mmol/L (3.4-5.0)
[2016-12-03 07:25] LABS: BAND 50 % (0-10); EOSINOPHIL 4 % (0-4); NEUTROPHILS 40 % (42.0-75.2); TOTAL CELLS COUNTED 100
[2016-12-03 07:29] LABS: HYPOCHROMIA 1+; PLATELET ESTIMATE DECREASED (NORMAL)
[2016-12-03 07:33] VITALS: BP 120/75; PULSE 71; TEMP 99.2
[2016-12-03 11:26] VITALS: BP 92/74; PULSE 82; TEMP 98
[2016-12-03 16:24] VITALS: BP 115/79; PULSE 83; TEMP 98.8
[2016-12-03 19:27] VITALS: BP 111/82; PULSE 92; TEMP 98
[2016-12-03 23:55] VITALS: BP 120/68; PULSE 84; TEMP 99.3
[2016-12-04 02:58] VITALS: BP 110/75; PULSE 60; TEMP 99.8
[2016-12-04 07:32] VITALS: BP 129/83; PULSE 72; TEMP 99.1
[2016-12-04 11:05] VITALS: BP 115/75; PULSE 71; TEMP 97.7
[2016-12-04 14:52] VITALS: BP 124/81; PULSE 71; TEMP 98
[2016-12-04 19:11] VITALS: BP 135/90; PULSE 93; TEMP 98.9
[2016-12-04 23:21] VITALS: BP 128/87; PULSE 79; TEMP 99.3
[2016-12-05 03:42] VITALS: BP 124/72; PULSE 74; TEMP 98.5
[2016-12-05 07:54] VITALS: BP 142/86; PULSE 73; TEMP 98.6
[2016-12-05 07:55] LABS: INR 3.9 (0.8-3.0)
[2016-12-05 08:08] LABS: PROTHROMBIN TIME 45.9 SECONDS (9.7-12.8)
[2016-12-05 12:05] VITALS: BP 125/88; PULSE 73; TEMP 98.8
[2016-12-05] MEDS ORDERED: BACTRIM DS 8001 TAB PO (12:25)
[2016-12-05] MEDS ORDERED: DIFLUCAN150 MG PO (12:25)
== END 2016-12-05 15:20 | disposition home or self-care (01) | DRG 809 ==
LOC: MEDICAL 11:31
PROVIDERS: Internal Medicine; Nurse Practitioner Family; Physician Assistant
PROC: 02HV33Z Insertion of Infusion Device into Superior Vena Cava, Percutaneous Approach (ICD-10-PCS; principal; 2016-11-25)
DX: D70.9 Neutropenia, unspecified (principal); C90.00 Multiple myeloma not having achieved remission; I42.9 Cardiomyopathy, unspecified; M87.9 Osteonecrosis, unspecified; R50.81 Fever presenting with conditions classified elsewhere; I10 Essential (primary) hypertension; Z95.0 Presence of cardiac pacemaker; E83.52 Hypercalcemia; E87.6 Hypokalemia; I48.0 Paroxysmal atrial fibrillation
CPT/HCPCS: 99223-AI; 99232-AI; 99233-AI; 99239; C1751; J0692; J1450; J1644; J1650; J7030; J7050; Q9967

== ENCOUNTER → 2017-02-22 | Outpatient (CLI) | payer BC ==
[2017-02-22] VITALS (8 sets, daily range): BP systolic 108–125; BP diastolic 64–80; PULSE 70–82; TEMP 97–98.2
[~2017-02-22] VITALS: Ht 170.2 cm; Wt 81.3 kg
[~2017-02-22] MED LIST changes: +BACTRIM DS 8001 TAB PO; +DIFLUCAN150 MG PO; +EMPLICITI300 MG IV; +LEXAPRO 10MG10 MG PO; +REVLIMID25 MG PO; +TUMS ULTRA ST1000 MG PO
== END ==
LOC: EUO 09:46
DX: D80.1 Nonfamilial hypogammaglobulinemia (principal); Z79.899 Other long term (current) drug therapy
CPT/HCPCS: J1100; J1200; J1459; J1569

== ENCOUNTER 2017-03-28 10:04 | Outpatient (CLI) | payer BC ==
[2017-03-28] VITALS (7 sets, daily range): BP systolic 105–129; BP diastolic 72–86; PULSE 49–75; TEMP 97.9–98.6
[~2017-03-28] VITALS: Ht 170.2 cm; Wt 76.0 kg
== END 2017-03-28 14:56 | disposition home or self-care (01) ==
LOC: EUO 10:04
DX: D80.1 Nonfamilial hypogammaglobulinemia (principal)
CPT/HCPCS: J1100; J1200; J1459; J1569

== ENCOUNTER 2017-04-25 10:52 | Outpatient (CLI) | payer BC ==
[~2017-04-25] VITALS: Ht 170.2 cm; Wt 78.1 kg
[2017-04-25 11:17] VITALS: BP 125/83; PULSE 96; TEMP 98.2
[2017-04-25 11:50] VITALS: BP 131/85; PULSE 71; TEMP 98.2
[2017-04-25 12:40] VITALS: BP 125/80; PULSE 70; TEMP 98.2
== END 2017-04-25 13:40 | disposition home or self-care (01) ==
LOC: EUO 10:52
DX: D80.1 Nonfamilial hypogammaglobulinemia (principal); Z79.899 Other long term (current) drug therapy
CPT/HCPCS: J1100; J1200; J1459; J1569

== ENCOUNTER 2017-06-23 14:04 | Outpatient (RCR) | payer BC | END 2017-09-07 09:44 | disposition home or self-care (01) | LOC: MKS.ESL.PT 14:04 | DX: R53.1 Weakness (principal); R26.89 Other abnormalities of gait and mobility; R42 Dizziness and giddiness; R29.6 Repeated falls; Z91.81 History of falling ==

== ENCOUNTER 2017-08-18 14:25 | Outpatient (CLI) | payer BC ==
[~2017-08-18] VITALS: Ht 170.2 cm; Wt 71.1 kg
[2017-08-18 15:11] VITALS: BP 120/71; PULSE 73
== END 2017-08-18 21:30 | disposition home or self-care (01) ==
LOC: EUO 14:25
DX: C90.00 Multiple myeloma not having achieved remission (principal)
CPT/HCPCS: J3475; J3480

== ENCOUNTER → 2017-08-25 | Outpatient (CLI) | payer BC | LOC: COL.RAD 10:12 | DX: C90.00 Multiple myeloma not having achieved remission (principal); M43.8X4 Other specified deforming dorsopathies, thoracic region; M87.852 Other osteonecrosis, left femur; M87.851 Other osteonecrosis, right femur; R06.02 Shortness of breath; Z87.81 Personal history of (healed) traumatic fracture | CPT/HCPCS: Q9967 ==

== ENCOUNTER 2018-06-18 09:55 | Emergency (ER) | payer BC ==
[~2018-06-18] VITALS: Ht 172.7 cm; Wt 68.2 kg
[~2018-06-18 09:55] MED LIST changes: +OMNICEF 300MG300 MG PO; +REVLIMID15 MG PO
[2018-06-18 10:37] LABS: HEMOGLOBIN 10.2 g/dl (13.5-18.0); MEAN CELL VOLUME 92 fl (80.0-100.0); MEAN CORPUSCULAR HEMOGLOBIN 32 pg (27.0-31.0); MEAN CORPUSCULAR HGB CONC 35 g/dl (33.0-37.0); MEAN PLATELET VOLUME 12.5 fl (7.4-10.4); PLATELET COUNT 91 K/mm3 (130-400); RED BLOOD COUNT 3.15 M/mm3 (4.20-5.60); REDCELL DISTRIBUTION WIDTH-CV 16.8 % (11.5-14.5)
[2018-06-18 10:38] LABS: HEMATOCRIT 29.1 % (42.0-52.0)
[2018-06-18 10:41] LABS: INR 1.3 (0.8-3.0); PROTHROMBIN TIME 14.7 SECONDS (9.7-12.8)
[2018-06-18 10:49] LABS: ALANINE AMINOTRANSFERASE 52 U/L (21-72); ALBUMIN 3.8 gm/dL (3.5-5.0); ALKALINE PHOSPHATASE 113 U/L (50-136); ANION GAP 16 mmol/L (7-16); AST,SGOT 43 U/L (15-37); BILIRUBIN,TOTAL 1.6 mg/dL (0.0-1.0); BLOOD UREA NITROGEN 13 mg/dL (9-20); CALCIUM 8.5 mg/dL (8.4-10.2); CARBON DIOXIDE 32 mmol/L (22-30); CREATININE, serum 1.34 mg/dL (0.66-1.25); GLUCOSE 113 mg/dL (74-106); LIPASE 116 U/L (23-300); MAGNESIUM 1.1 mg/dL (1.6-2.3); PHOSPHOROUS 3.1 mg/dL (2.5-4.5); TOTAL PROTEIN 6.1 gm/dL (6.4-8.2)
[2018-06-18 10:53] LABS: CHLORIDE 68 mmol/L (98-107); SODIUM 116 mmol/L (137-145)
[2018-06-18 11:01] LABS: DIGOXIN < 0.4 ng/mL (0.8-2.0)
[2018-06-18 11:09] LABS: BAND 44 % (0-10); LYMPHOCYTE 9 % (20.0-51.0); METAMYELOCYTE 2 % (0-0); NEUTROPHILS 31 % (42.0-75.2); PLATELET ESTIMATE DECREASED (NORMAL); TOXIC GRANULATION PRESENT
[2018-06-18] MEDS ORDERED: DIGITEK0.25 MG PO (11:21)
[2018-06-18] MEDS ORDERED: LEVAQUIN 5500 MG/TA1 PO (11:22)
[2018-06-18] MEDS ORDERED: LEXAPRO20 MG PO (11:22)
[2018-06-18] MEDS ORDERED: CLEOCIN HCL300 MG PO (11:23)
[2018-06-18] MEDS ORDERED: ZAROXOLYN5 MG PO (11:24)
[2018-06-18] MEDS ORDERED: REVLIMID15 MG PO (11:25)
[2018-06-18] MEDS ORDERED: COUMADIN 22.5 MG/TAB PO (11:25)
[2018-06-18] MEDS ORDERED: LOPRESSOR100 MG PO (11:26)
[2018-06-18] MEDS ORDERED: TRENTAL 400MG400 MG PO (11:26)
[2018-06-18] MEDS ORDERED: LASIX 40MG TABL40 MG PO (11:27)
[2018-06-18] MEDS ORDERED: DOXYCYCLINE 10100 MG PO (11:29)
[2018-06-18] MEDS ORDERED: INSPRA50 MG PO (11:30)
[2018-06-18] MEDS ORDERED: FOSAMAX 70MG TA70 MG PO (11:31)
[2018-06-18] MEDS ORDERED: K-DUR20 MEQ PO (11:43)
[2018-06-18 12:30] VITALS: BP 125/85; PULSE 70; TEMP 99.2
== END 2018-06-18 12:30 | disposition short-term general hospital (02) ==
LOC: COL.ER 09:55
PROVIDERS: Emergency Medicine
DX: S51.852A Open bite of left forearm, initial encounter (principal); R53.1 Weakness; C90.00 Multiple myeloma not having achieved remission; I42.9 Cardiomyopathy, unspecified; E87.6 Hypokalemia; E87.1 Hypo-osmolality and hyponatremia; I48.91 Unspecified atrial fibrillation; I50.9 Heart failure, unspecified; W55.01XA Bitten by cat, initial encounter; Z79.01 Long term (current) use of anticoagulants
CPT/HCPCS: J3475; J3480; J7040

== ENCOUNTER 2018-06-25 14:10 | Outpatient (CLI) | payer BC ==
[~2018-06-25] VITALS: Ht 172.7 cm; Wt 73.0 kg
[~2018-06-25 14:10] MED LIST changes: +DIGITEK0.25 MG PO; +DOXYCYCLINE 10100 MG PO; +FOSAMAX 70MG TA70 MG PO; +K-DUR20 MEQ PO; +LEXAPRO20 MG PO; +LOPRESSOR100 MG PO; +TRENTAL 400MG400 MG PO; +ZAROXOLYN5 MG PO
[2018-06-25 14:26] VITALS: BP 114/71; PULSE 72; TEMP 99.6
== END 2018-06-25 17:22 | disposition home or self-care (01) ==
LOC: EUO 14:10
DX: E83.42 Hypomagnesemia (principal)
CPT/HCPCS: J3475

== ENCOUNTER 2018-10-31 13:00 | Outpatient (RCR) | payer BC ==
[2018-10-31] VITALS (10 sets, daily range): BP systolic 88–101; BP diastolic 64–85; PULSE 69–73; TEMP 97.9–98.2
[~2018-10-31] VITALS: Ht 172.7 cm; Wt 80.1 kg
== END 2018-10-31 19:00 | disposition home or self-care (01) ==
LOC: EUO 13:00
DX: C90.00 Multiple myeloma not having achieved remission (principal); E83.52 Hypercalcemia; Z79.899 Other long term (current) drug therapy
CPT/HCPCS: J7050; P9040

== ENCOUNTER 2019-01-06 10:11 | Inpatient (IN) | payer BC, MEDICARE ==
[~2019-01-06] VITALS: Ht 170.2 cm; Wt 81.1 kg
[2019-01-06 11:20] LABS: MEAN CELL VOLUME 104 fl (80.0-100.0); MEAN CORPUSCULAR HGB CONC 34 g/dl (33.0-37.0); MEAN PLATELET VOLUME 11.3 fl (7.4-10.4); REDCELL DISTRIBUTION WIDTH-CV 17.4 % (11.5-14.5)
[2019-01-06 11:25] LABS: HEMATOCRIT 20.8 % (42.0-52.0); HEMOGLOBIN 7.1 g/dl (13.5-18.0); MEAN CORPUSCULAR HEMOGLOBIN 36 pg (27.0-31.0); PLATELET COUNT 54 K/mm3 (130-400)
[2019-01-06 11:28] LABS: INR 2.3 (0.8-3.0); PROTHROMBIN TIME 27.2 SECONDS (9.7-12.8)
[2019-01-06 11:31] LABS: BILIRUBIN,TOTAL 0.7 mg/dL (0.0-1.0); CALCIUM 7.9 mg/dL (8.4-10.2); CREATININE, serum 1.33 (0.66-1.25); PARTIAL THROMBOPLASTIN TIME 25.1 SECONDS (26.0-37.0); POTASSIUM 4.1 mmol/L (3.4-5.0); TOTAL PROTEIN 5.1 gm/dL (6.4-8.2)
[2019-01-06 11:41] LABS: BAND 35 % (0-10); EOSINOPHIL 2 % (0-4); LYMPHOCYTE 8 % (20.0-51.0); METAMYELOCYTE 2 % (0-0); NEUTROPHILS 39 % (42.0-75.2)
[2019-01-06 11:42] LABS: ANISOCYTOSIS 1+; PLATELET ESTIMATE DECREASED (NORMAL)
[2019-01-06 13:21] VITALS: BP 104/71; PULSE 94; TEMP 98.4
[2019-01-06] MEDS ORDERED: INSPRA50 MG PO (13:25)
[2019-01-06] MEDS ORDERED: ULTRAM 50MG TAB50 MG PO (13:32)
[2019-01-06] MEDS ORDERED: COUMADIN 22.5 MG/TAB PO (13:34)
--- NOTE | 2019-01-06 14:00 | NUR ---
Admission assessment completed, alert/oriented, vital signs stable, reports pain to left him is "not bad" as long as he is no moving, Fentanyl was given in ED and helped and now we have Morphine PRN, present upon admit, meds/allergies/pharmacy reviewed with her, patient has multiple bruises/abrasion to arms/legs/knees/ellbows/trunk, he denies frequent fall and stated just the one today, INR 2.3/ hemaglobin 7.1 Hospitalist aware, Coumadin is on hold, Ortho consult / will recheck INR a.m and surgery pending, heart RRR/paced on tele, lungs CTA/ no resp.difficult ynoted, will continue to monitor
[2019-01-06 16:01] VITALS: BP 117/66; PULSE 73; TEMP 98.8
[2019-01-06 19:46] VITALS: BP 111/65; PULSE 70; TEMP 98.1
--- NOTE | 2019-01-06 21:00 | NUR ---
PACEMAKER INTERROGATION COMPLETED BY CHAO MARCOSFAMILY LAWYER.
[2019-01-06 21:01] LABS: MEAN CELL VOLUME 103 fl (80.0-100.0); MEAN CORPUSCULAR HGB CONC 34 g/dl (33.0-37.0); MEAN PLATELET VOLUME 11.4 fl (7.4-10.4); PLATELET COUNT 51 K/mm3 (130-400); REDCELL DISTRIBUTION WIDTH-CV 17.5 % (11.5-14.5)
[2019-01-06 21:16] LABS: HEMATOCRIT 20.6 % (42.0-52.0); MEAN CORPUSCULAR HEMOGLOBIN 35 pg (27.0-31.0)
--- NOTE | 2019-01-06 21:30 | NUR ---
PATIENT ALERT AND ORIENTED. HAS VERBAL OUTBURSTS THAT PATIENT CONTRIBUTES TO HIS "NEUROPATHY". IV VITAMIN K ADMINISTERED PER DOCTORS ORDER. REPORTS PAIN 9/10 TO LEFT HIP, MEDICATED WITH IV MORPHINE 2MG AND TYLENOL PO WITH HS MEDS. HAS USED THE URINAL WITHOUT PROBLEM. SL TO RIGHT WRIST WITHOUT REDNESS OR SWELLING.
[2019-01-06 22:13] LABS: ANISOCYTOSIS 2+; EOSINOPHIL 1 % (0-4); LYMPHOCYTE 7 % (20.0-51.0); MYELOCYTE 1 % (0-0); NEUTROPHILS 77 % (42.0-75.2); NUCLEATED RED BLOOD CELL 1 (0-6); PLATELET ESTIMATE DECREASED (NORMAL)
--- NOTE | 2019-01-06 22:30 | NUR ---
PATIENT SIGNS CONSENT FOR BLOOD TRANSFUSION. INSERTED #20G INSYTE TO LEFT FOREARM FOR BLOOD, IV SITE TO RIGHT WRIST IS ONLY A #22. PATIENT TOLERATES WITHOUT PROBLEM.
[2019-01-07] VITALS (14 sets, daily range): BP systolic 92–116; BP diastolic 57–75; PULSE 69–99; TEMP 97.7–100.6
--- NOTE | 2019-01-07 01:39 | NUR ---
PATIENT ON BEDPAN AT THIS TIME.
--- NOTE | 2019-01-07 02:31 | NUR ---
Received call from Lab regarding transfusion of PRBC's and platelets. Irradiated platelets will not be available until 1000, until a rolloff driver from [employer] can deliver them. The unit of irradiated PRBC's will be ready at 0645, due to needing to be double checked by another hoisting laborer for accuracy.
--- NOTE | 2019-01-07 05:09 | NUR ---
Patient has used urinal without notifying staff for UA collection. Again, reminded patient to call after voiding.
[2019-01-07 05:45] LABS: BASO % 0.4 % (0.0-2.0); EOS # 0.1 (0.0-0.7); EOS % 2.1 % (0-4.0); GRAN % 71.7 % (42.2-75.2); LYMPH # 0.3 (1.2-3.4); LYMPH % 10.6 % (20.0-51.0); MEAN CELL VOLUME 103 fl (80.0-100.0); MEAN CORPUSCULAR HGB CONC 34 g/dl (33.0-37.0); MEAN PLATELET VOLUME 10.8 fl (7.4-10.4); MONO # 0.4 (0.1-0.6); MONO % 14.1 % (1.7-9.3); PLATELET COUNT 50 K/mm3 (130-400); RED BLOOD COUNT 1.79 M/mm3 (4.20-5.60); REDCELL DISTRIBUTION WIDTH-CV 17.4 % (11.5-14.5)
[2019-01-07 05:48] LABS: HEMATOCRIT 18.4 % (42.0-52.0); HEMOGLOBIN 6.2 g/dl (13.5-18.0); MEAN CORPUSCULAR HEMOGLOBIN 35 pg (27.0-31.0)
[2019-01-07 05:49] LABS: INR 1.6 (0.8-3.0); PROTHROMBIN TIME 18.4 SECONDS (9.7-12.8)
--- NOTE | 2019-01-07 05:55 | NUR ---
LAB CALLED WITH HGB RESULT OF 6.2 THIS AM. UNIT OF PRBC'S WILL BE READY IN 30 MINUTES.
[2019-01-07 06:00] LABS: CREATININE, serum 1.21 (0.66-1.25); POTASSIUM 3.4 mmol/L (3.4-5.0)
--- NOTE | 2019-01-07 06:45 | NUR ---
awake resting in bed, bedside shift report received from HEMANT Mello
[2019-01-07 07:10] LABS: COLLECTION METHOD CLEAN CATCH
[2019-01-07 07:16] LABS: PH 6 (5-8); SQUAMOUS EPITHELIAL None Seen /hpf; URINE APPEARANCE Clear; URINE BACTERIA None Seen /hpf; URINE BILIRUBIN Negative (NEGATIVE); URINE BLOOD Negative (NEGATIVE); URINE COLOR Straw; URINE GLUCOSE 1+ (NEGATIVE); URINE KETONE Negative (NEGATIVE); URINE LEUKOCYTE ESTERASE Negative (NEGATIVE); URINE NITRATE Negative (NEGATIVE); URINE PROTEIN(semi-quant) Negative (NEGATIVE); URINE RBC 0-2 /hpf; URINE UROBILINOGEN Negative (NEGATIVE); URINE WBC None Seen /hpf
--- NOTE | 2019-01-07 07:18 | NUR ---
unit of blood started at 60ml/hr, explained s/s of reaction and verbalizes understanding, full assessment completed, see interventions for further info, moans and grunts at intervals but denies needs
--- NOTE | 2019-01-07 07:33 | NUR ---
no s/s of reaction noted or felt by patient, rate increased to 125ml/hr
--- NOTE | 2019-01-07 09:03 | NUR ---
blood continues to infuse and no s/s of reaction noted, he denies needs
--- NOTE | 2019-01-07 09:50 | NUR ---
spoke with patient and informed him and family member that would go to surgery on Monday, verbalizes understanding, ARCADE GAME TECHNICIAN in and assisting him with ordering breakfast
--- NOTE | 2019-01-07 11:12 | NUR ---
second unit of blood started, revied s/s of reaction and verbalizes understanding, will stay with patient first 15 minutes
--- NOTE | 2019-01-07 11:35 | NUR ---
no s/s of reaction and rate of blood transfusion increased to 125ml/hr
--- NOTE | 2019-01-07 11:59 | NUR ---
on bedpan and now off and had moderate liquid stool, specimen sent to lab, care provided
--- NOTE | 2019-01-07 12:22 | NUR ---
Dr Mondragon and care team in to see patient, will plan discharge/transfer to Inpatient Rehab
--- NOTE | 2019-01-07 13:25 | NUR ---
second unit of blood infused and tolerated well, denies needs, at bedside
--- NOTE | 2019-01-07 13:52 | NUR ---
steamtable worker met with patient and spouse to discuss discharge planning. Patient is getting blood today and is planning for surgery to repair a fractured hip on 01/08/19. Patient states he is mostly independent at home, prior to fracture. Worker provided rehab options. Spouse states that [facility] [employer] is primary insurance for patient. Worker provided medicare.gov inpatient rehab options. Spouse chose [facility] inpatient [facility]hab and signed choice form. Will await therapy evaluation, after surgery, for recommendations for placment. Patient's primary care provider is Dr Weir.
--- NOTE | 2019-01-07 14:15 | NUR ---
remains resting in bed, declines to have lunch but will plan to eat supper
--- NOTE | 2019-01-07 15:39 | NUR ---
recycle worker spoke with Selena (Inpatient Rehab Unit) regarding patient's preference for post rehab.
--- NOTE | 2019-01-07 15:50 | NUR ---
pacemaker interrogated by HEMANT Pacheco and reported this to hospitalist, assisted onto bedpain, c/o pain and medcicated with hydrocodone 5mg 1 tab
--- NOTE | 2019-01-07 16:30 | NUR ---
on bedpan and had another large loose stool, care provided, c/o pain wiht movement and medicated with morphine 2mg slow IV
--- NOTE | 2019-01-07 18:03 | NUR ---
incontinennt of small amount loose stool, care provided, remains positioned on right side, will review menu with to order something for supper
--- NOTE | 2019-01-07 18:46 | NUR ---
bedside shift report given to HEMANT Madrigal
--- NOTE | 2019-01-07 19:37 | NUR ---
Sitting up in bed with eyes open. Denies pain. Multiple bruises noted to bilateral arms. Moans with movement. Discussed with patient that at midnight he is NPO so we will take his fluids away at that time. Patient verbalizes understanding and denies further needs at this time.
--- NOTE | 2019-01-07 22:37 | NUR ---
Sitting up in bed. Denies pain. Requests to have Ambien at this time so he can go to sleep. Ambien administered as ordered. Patient denies further concerns or needs at this time.
[2019-01-08] VITALS (7 sets, daily range): BP systolic 104–139; BP diastolic 65–78; PULSE 71–81; TEMP 98.1–99.7
[2019-01-08 06:20] LABS: MEAN CORPUSCULAR HGB CONC 35 g/dl (33.0-37.0); MEAN PLATELET VOLUME 9.7 fl (7.4-10.4); RED BLOOD COUNT 2.58 M/mm3 (4.20-5.60); REDCELL DISTRIBUTION WIDTH-CV 19.9 % (11.5-14.5)
[2019-01-08 06:21] LABS: INR 1.2 (0.8-3.0); PROTHROMBIN TIME 13.7 SECONDS (9.7-12.8)
[2019-01-08 06:29] LABS: CALCIUM 8.1 mg/dL (8.4-10.2); CREATININE, serum 1.11 (0.66-1.25)
[2019-01-08 06:32] LABS: POTASSIUM 2.6 mmol/L (3.4-5.0)
[2019-01-08 07:00] LABS: HEMATOCRIT 24.6 % (42.0-52.0); HEMOGLOBIN 8.5 g/dl (13.5-18.0); MEAN CELL VOLUME 95 fl (80.0-100.0); MEAN CORPUSCULAR HEMOGLOBIN 33 pg (27.0-31.0)
[2019-01-08 07:02] LABS: PLATELET COUNT 49 K/mm3 (130-400)
[2019-01-08 07:24] LABS: ANISOCYTOSIS 2+; EOSINOPHIL 2 % (0-4); LYMPHOCYTE 8 % (20.0-51.0); NEUTROPHILS 87 % (42.0-75.2); PLATELET ESTIMATE DECREASED (NORMAL)
--- NOTE | 2019-01-08 08:41 | NUR ---
PT LAYING IN BED AWAITING SURGERY. KCL 2.6 JUANI PEREZ APRN AWARE SEE NEW ORDERS. PLATELETS ON WAY FROM [facility] THIS AM.
--- NOTE | 2019-01-08 08:58 | NUR ---
IV POTASSIUM STARTED PER PROTOCOLS. AT BEDSIDE.
--- NOTE | 2019-01-08 20:00 | NUR ---
Report received. Assumed care for night warehouse selector. A&Ox3. Assessment complete. VS stable. Denies pain but is moaning out-when asked if pain present states its a 4/10 to left hip but does not want pain medications. Requesting fresh ice fiqi-qjlvz-[id number] and placed on left hip. Plan of care discussed for NPO after midnight, lab draw to check potassium level, as well as blood admin in AM. Denies questions or concerns. Call light in reach. Bed in low position/wheels locked/alarm on. Will monitor.
--- NOTE | 2019-01-08 20:45 | NUR ---
Call received from lab with critical potassium level of 2.8. Will initiate order for IV potassium per protocol.
[2019-01-09] VITALS (13 sets, daily range): BP systolic 108–155; BP diastolic 51–88; PULSE 66–77; TEMP 65–98.4
--- NOTE | 2019-01-09 01:35 | NUR ---
Called stating IV potassium is burning. States rate has had to be slowed down in previous admin. Rate slowed to 75mls/hour. No redness or swelling noted at site currently. Will monitor.
--- NOTE | 2019-01-09 05:05 | NUR ---
Call made to lab to check on status of irradiated platelets. Notified they are available and ready when needed.
--- NOTE | 2019-01-09 05:15 | NUR ---
Lab called charge nurse notifying of need for order for irradiated platelets. Order is in-verified by charge nurse. Lab states they can not see order. Charge nurse placed order again. Lab states they still cant see order but will call floor when they can see order. Will wait for call prior to picking up platelets.
--- NOTE | 2019-01-09 05:44 | NUR ---
Return call from lab stating he can see the order for platelets but can not check them out. States will call back when available.
[2019-01-09 06:41] LABS: BASO % 0.4 % (0.0-2.0); EOS % 1.4 % (0-4.0); GRAN # 2.2 (1.4-6.5); GRAN % 78.7 % (42.2-75.2); LYMPH # 0.2 (1.2-3.4); LYMPH % 7.6 % (20.0-51.0); MEAN CELL VOLUME 96 fl (80.0-100.0); MEAN CORPUSCULAR HGB CONC 35 g/dl (33.0-37.0); MONO # 0.3 (0.1-0.6); MONO % 10.5 % (1.7-9.3); PLATELET COUNT 54 K/mm3 (130-400); RED BLOOD COUNT 2.42 M/mm3 (4.20-5.60); REDCELL DISTRIBUTION WIDTH-CV 19.3 % (11.5-14.5)
[2019-01-09 06:45] LABS: HEMATOCRIT 23.1 % (42.0-52.0); MEAN CORPUSCULAR HEMOGLOBIN 33 pg (27.0-31.0)
[2019-01-09 06:50] LABS: INR 1.2 (0.8-3.0); PROTHROMBIN TIME 13.5 SECONDS (9.7-12.8)
[2019-01-09 07:03] LABS: CALCIUM 8.3 mg/dL (8.4-10.2); CREATININE, serum 1.01 (0.66-1.25); MAGNESIUM 1.8 mg/dL (1.6-2.3); POTASSIUM 3.4 mmol/L (3.4-5.0)
--- NOTE | 2019-01-09 07:13 | NUR ---
REPORT FROM BERNARDA MARCOS. PLATELETTS RUNNING, PT TOLERATING WELL.
--- NOTE | 2019-01-09 09:31 | NUR ---
pt to surgery with Enrique at this time. Report to Ryley Mccord CRNA.
--- NOTE | 2019-01-09 12:23 | NUR ---
PT TO ROOM 323 PER BED WITH STEPAN MARCOS PACU @[phone]. PT IS A/O X3 DRESSING CDI TO LEFT HIP. ICE PACK INPLACE. IV TO LEFT HAND. PTS AT BEDSIDE. PT REFUSING TO EAT LUNCH TRAY.
--- NOTE | 2019-01-09 14:43 | NUR ---
Reviewed the team conference notes with the pt & his , Tricia. They stated they understood & agreed w/ the report. Informed them that the team is recommending SNF placement due to pt's level of functioning varying depending on his fatigue & how he feels. They both stated they understood & agreed w/ the plan, stating the would not be able to take care of him at home. Inquired about their choice of SNF & pt stated his first choice was [facility]. Pt signed SNF choice form.
--- NOTE | 2019-01-09 19:17 | NUR ---
REPORT TO JOSE RN
--- NOTE | 2019-01-09 21:05 | NUR ---
PATIENT IN BED, IS ALERT AND ORIENTED X4, READING ON IPAD. REPORTS PAIN TO LEFT HIP IS MINIMAL UNLESS HE IS MOVING IT. DRGS D/I TO LEFT HIP, ICE PACK IN PLACE. VOIDING PER URINAL. MEDICATED WITH HS MEDS INCLUDING NORCO AND AMBIEN.
[2019-01-10 00:39] VITALS: BP 123/58; PULSE 69; TEMP 98.1
[2019-01-10 03:33] VITALS: BP 126/75; PULSE 79; TEMP 98.3
--- NOTE | 2019-01-10 05:32 | NUR ---
PATIENT RESTING WELL. OFFERS NO CONCERNS AT THIS TIME.
--- NOTE | 2019-01-10 07:10 | NUR ---
bedside shift report received from HEMANT Mello
[2019-01-10 07:26] LABS: MEAN CELL VOLUME 96 fl (80.0-100.0); MEAN CORPUSCULAR HGB CONC 34 g/dl (33.0-37.0); MEAN PLATELET VOLUME 10.7 fl (7.4-10.4); PLATELET COUNT 65 K/mm3 (130-400); REDCELL DISTRIBUTION WIDTH-CV 18.8 % (11.5-14.5)
[2019-01-10 07:32] LABS: INR 1.1 (0.8-3.0); PROTHROMBIN TIME 12.7 SECONDS (9.7-12.8)
[2019-01-10 07:33] LABS: HEMATOCRIT 22.1 % (42.0-52.0); HEMOGLOBIN 7.6 g/dl (13.5-18.0); MEAN CORPUSCULAR HEMOGLOBIN 33 pg (27.0-31.0)
[2019-01-10 07:41] LABS: CREATININE, serum 0.97 (0.66-1.25); POTASSIUM 3.5 mmol/L (3.4-5.0)
--- NOTE | 2019-01-10 09:00 | NUR ---
physical and occupational therapy in to work with patient, rakesh is reddened and has stage II pressure ulcer, mepiplex dressing placed, has some redness to inner aspect of buttocks and a small 1cm "scratch" looking area on lower left buttocks, ambulated to recliner and chair alarm on
[2019-01-10 09:07] LABS: BAND 19 % (0-10); LYMPHOCYTE 4 % (20.0-51.0); METAMYELOCYTE 1 % (0-0); NEUTROPHILS 72 % (42.0-75.2)
[2019-01-10 09:08] LABS: ANISOCYTOSIS 1+; HYPOCHROMIA 1+; PLATELET ESTIMATE DECREASED (NORMAL); POLYCHROMASIA 1+
--- NOTE | 2019-01-10 09:41 | NUR ---
Assessed skin. Redness noted to coccyx/sacrum that blanches. Opti-foam applied for cushion and prevention of progressive breakdown r/t moisture and decreased mobility. Scratch noted under left gluteal. No signs or symptoms of infection. Pt c/o increased pain to left hip with transfer. PRN [place] 5/325mg 1 tab given. Pt rated pain 5/10 on numerical scale.
--- NOTE | 2019-01-10 10:30 | NUR ---
full assessment completed, reviewed assessment completed by student and in agreement with that assessment
--- NOTE | 2019-01-10 11:30 | NUR ---
Dr Lemos and care team in to see patient
[2019-01-10 12:54] VITALS: BP 133/77; PULSE 79; TEMP 98.2
--- NOTE | 2019-01-10 13:28 | NUR ---
Patient assessed. VSS. Patient denies pain and difficulty breathing. Patient resting in bed with call light in reach.
--- NOTE | 2019-01-10 13:31 | NUR ---
Reported off with primary nurse Diane MARCOS.
--- NOTE | 2019-01-10 13:37 | NUR ---
physical therapy in and asssited him back to bed, denies needs
--- NOTE | 2019-01-10 15:10 | NUR ---
ambulated out of bathroom with slow steady gait, had BM and voided, assisted back into bed
[2019-01-10 16:22] VITALS: BP 123/84; PULSE 73; TEMP 97.4
--- NOTE | 2019-01-10 18:00 | NUR ---
in bed watching TV, denies needs
--- NOTE | 2019-01-10 19:03 | NUR ---
bedside shift report given to HEMANT Davis
[2019-01-10 20:24] VITALS: BP 122/82; PULSE 74; TEMP 98.3
--- NOTE | 2019-01-10 20:45 | NUR ---
Patient alert and oriented. Dressing to left hip are clean, dry and intact. Patient has been tolerating ambulating in room. Int. iv sites to the left wrist and right forearm.Patient has been tolerating PO intake.
[2019-01-11] VITALS (13 sets, daily range): BP systolic 100–1106; BP diastolic 62–89; PULSE 62–99; TEMP 98–98.9
[2019-01-11 07:10] LABS: MEAN CELL VOLUME 98 fl (80.0-100.0); MEAN CORPUSCULAR HGB CONC 34 g/dl (33.0-37.0); MEAN PLATELET VOLUME 10.9 fl (7.4-10.4); PLATELET COUNT 62 K/mm3 (130-400); RED BLOOD COUNT 2.15 M/mm3 (4.20-5.60); REDCELL DISTRIBUTION WIDTH-CV 19.3 % (11.5-14.5)
--- NOTE | 2019-01-11 07:11 | NUR ---
Skin assessment completed with attention to coccyx r/t decreased mobility. No concerns at this time. Encouraged patient to shift positions periodically to prevent pressure ulcers and patient acknowledged understanding. Patient denied pain. Discussed with patient about the use of analgesics prior to therapy but patient refused stating that the pain is only temporary so he would like to do without.
[2019-01-11 07:12] LABS: PROTHROMBIN TIME 12.1 SECONDS (9.7-12.8)
[2019-01-11 07:13] LABS: HEMOGLOBIN 7.1 g/dl (13.5-18.0); MEAN CORPUSCULAR HEMOGLOBIN 33 pg (27.0-31.0)
--- NOTE | 2019-01-11 07:13 | NUR ---
REPORT FROM RUSTAM MARCOS. STUDNE NURSE DADA WORKING WITH PT THIS AM.
[2019-01-11 07:19] LABS: CALCIUM 8.8 mg/dL (8.4-10.2); CREATININE, serum 1.01 (0.66-1.25); MAGNESIUM 2.1 mg/dL (1.6-2.3); POTASSIUM 3.8 mmol/L (3.4-5.0)
--- NOTE | 2019-01-11 08:22 | NUR ---
AGREE WITH STUDENT'S ASSESSMENTS THIS AM.
[2019-01-11 08:58] LABS: ANISOCYTOSIS 1+; BAND 14 % (0-10); EOSINOPHIL 1 % (0-4); HYPOCHROMIA 2+; LYMPHOCYTE 9 % (20.0-51.0); NEUTROPHILS 73 % (42.0-75.2); NUCLEATED RED BLOOD CELL 1 (0-6); PLATELET ESTIMATE DECREASED (NORMAL)
--- NOTE | 2019-01-11 10:41 | NUR ---
Retail Sales Manager attended part of clinical rounds with the team. Discharge plan was discussed and the tentative plan is for patient to discharge to [facility] tomorrow. VON spoke with Selena (Inpatient Rehab Unit) and Selena advised that patient is still pending insurance approval. VON will continue to follow.
--- NOTE | 2019-01-11 13:49 | NUR ---
Assessment completed. Patient continues to have blood transfusion without complications. No concerns at this time.
--- NOTE | 2019-01-11 18:30 | NUR ---
Report received from HEMANT Hedrick. PT in bed resting with at bedside, denies needs, will continue to monitor.
--- NOTE | 2019-01-11 18:42 | NUR ---
Pt lying in bed with visiting, replaced ice pack for left hip, call light within reach, denies any needs at this time. Reported off to HEMANT Hedrick
--- NOTE | 2019-01-11 18:46 | NUR ---
report to adina MARCOS.
--- NOTE | 2019-01-11 20:00 | NUR ---
Assessment charted. PRN pain meds and sleeping medicaiton given per request. Pt states pain is 4/10 but grimaces from intermittent jolts of pain. L hip dressing has some drainage on it at distal sites but just gauze and tape covering steristrips. Proximal site is CDI. INT to LW and RH. Pt resting in bed, repositioned for comfort. Denies needs, will continue to monitor.
[2019-01-12 03:38] VITALS: BP 117/74; PULSE 73; TEMP 98.1
--- NOTE | 2019-01-12 04:47 | NUR ---
Pt had uneventful night. Used urinal to void on occasion. Rested off and on most of the night. Refused efforts to turn d/t pain in hip but only took PO PRN pain meds at bedtime upon request. Will give bedside shift report to dayshift nurse who will resume care.
[2019-01-12 08:23] VITALS: BP 131/85; PULSE 88; TEMP 98.5
[2019-01-12 09:03] LABS: MEAN CELL VOLUME 98 fl (80.0-100.0); MEAN CORPUSCULAR HGB CONC 34 g/dl (33.0-37.0); MEAN PLATELET VOLUME 10.2 fl (7.4-10.4); PLATELET COUNT 51 K/mm3 (130-400); REDCELL DISTRIBUTION WIDTH-CV 18.5 % (11.5-14.5)
[2019-01-12 09:06] LABS: INR 1.3 (0.8-3.0); PROTHROMBIN TIME 15.4 SECONDS (9.7-12.8)
[2019-01-12 09:11] LABS: HEMATOCRIT 26.5 % (42.0-52.0); HEMOGLOBIN 8.9 g/dl (13.5-18.0); MEAN CORPUSCULAR HEMOGLOBIN 33 pg (27.0-31.0)
[2019-01-12 09:12] LABS: CALCIUM 8.8 mg/dL (8.4-10.2); CREATININE, serum 1.01 (0.66-1.25); POTASSIUM 3.8 mmol/L (3.4-5.0)
--- NOTE | 2019-01-12 09:30 | NUR ---
Patient alert and oriented, answers questions appropriately. See assessment. RLE incision sites with gauze CDI, slight bruising noted, 2+ edeman. Neuros intact to RLE, pulses palpable. Chronic tingling noted to BLE from dx neuropathy. Ambulates with FWW, gait belt. FWB. Gait steady. No c/o at this time.
[2019-01-12 09:39] LABS: ANISOCYTOSIS 2+; EOSINOPHIL 3 % (0-4); LYMPHOCYTE 13 % (20.0-51.0); NEUTROPHILS 77 % (42.0-75.2); PLATELET ESTIMATE DECREASED (NORMAL); TEAR DROP CELLS 1+
[2019-01-12 12:09] VITALS: BP 115/77; PULSE 73; TEMP 98.8
[2019-01-12 16:05] VITALS: BP 114/73; PULSE 71; TEMP 99.8
[2019-01-12 21:16] VITALS: BP 122/83; PULSE 78; TEMP 97.7
--- NOTE | 2019-01-12 21:17 | NUR ---
PATIENT IN BED, ASKING FOR PAIN MEDS AND AMBIEN. REPORTS LEFT HIP PAIN 5/10, MEDICATED WITH NORCO 2 TABS AT THIS TIME. TAKES HS MEDS INCLUDING AMBIEN FOR SLEEP. USING URINAL, YELLOW URINE NOTED. SL TO RIGHT AND LEFT WRISTS, BOTH FLUSH WITHOUT PROBLEM. DRESSINGS TO LEFT HIP CDI.
[2019-01-13] VITALS (7 sets, daily range): BP systolic 94–117; BP diastolic 66–76; PULSE 71–77; TEMP 97.7–99.4
--- NOTE | 2019-01-13 04:30 | NUR ---
Denies any needs at this time. Pt did have this nurse look at his left leg, 3 drsgs intact, swelling and bruising present.
[2019-01-13 07:30] LABS: MEAN CELL VOLUME 98 fl (80.0-100.0); MEAN CORPUSCULAR HGB CONC 33 g/dl (33.0-37.0); MEAN PLATELET VOLUME 11.7 fl (7.4-10.4); PLATELET COUNT 51 K/mm3 (130-400); RED BLOOD COUNT 2.55 M/mm3 (4.20-5.60); REDCELL DISTRIBUTION WIDTH-CV 17.9 % (11.5-14.5)
[2019-01-13 07:44] LABS: CALCIUM 8.6 mg/dL (8.4-10.2); CREATININE, serum 0.86 (0.66-1.25); POTASSIUM 3.6 mmol/L (3.4-5.0)
[2019-01-13 08:32] LABS: HEMATOCRIT 24.9 % (42.0-52.0); HEMOGLOBIN 8.3 g/dl (13.5-18.0); MEAN CORPUSCULAR HEMOGLOBIN 33 pg (27.0-31.0)
[2019-01-13 08:52] LABS: ANISOCYTOSIS 1+; EOSINOPHIL 5 % (0-4); LYMPHOCYTE 19 % (20.0-51.0); NEUTROPHILS 75 % (42.0-75.2); PLATELET ESTIMATE DECREASED (NORMAL)
--- NOTE | 2019-01-13 17:51 | NUR ---
Patient has been up in bedside recliner most of the day reading and watching television. Patient is alert and oriented answers questions appropriately. Patient moving with SBA and walker today. Administered PRN pain medication once per patient request. Administered two doses of effer-k per potassium protocol. Patient denies needs at this time, call light within reach.
--- NOTE | 2019-01-13 21:10 | NUR ---
Assisted to bed with one assist and gait belt with walker. Transfers well. Ice pack placed to left hip, entire outer left hip remains reddened with bruising extending into left flank. Takes HS meds at this time including Ambien and [place] 2 tabs.
--- NOTE | 2019-01-14 04:00 | NUR ---
Awake, in bed. No concerns offered at this time.
[2019-01-14 04:47] VITALS: BP 125/78; PULSE 80; TEMP 97.8
--- NOTE | 2019-01-14 06:54 | NUR ---
appears to be sleeping, bedside shift report received from HEMANT Mello
--- NOTE | 2019-01-14 07:29 | NUR ---
awake and sitting up in bed eating breakfast, denies needs
[2019-01-14 07:48] VITALS: BP 103/68; PULSE 77; TEMP 99.1
--- NOTE | 2019-01-14 08:15 | NUR ---
occupational therapy in to work with patient
--- NOTE | 2019-01-14 09:00 | NUR ---
resting in bed now, full assessment completed, see interventions for further info, c/o some pain to left hip and medicated with hydrocodone 5mg 2 tabs, now in to visit
[2019-01-14 09:04] LABS: MEAN CELL VOLUME 100 fl (80.0-100.0); MEAN CORPUSCULAR HGB CONC 33 g/dl (33.0-37.0); MEAN PLATELET VOLUME 11.6 fl (7.4-10.4); PLATELET COUNT 58 K/mm3 (130-400); RED BLOOD COUNT 2.96 M/mm3 (4.20-5.60); REDCELL DISTRIBUTION WIDTH-CV 17.7 % (11.5-14.5)
[2019-01-14 09:15] LABS: MAGNESIUM 1.9 mg/dL (1.6-2.3); POTASSIUM 3.8 mmol/L (3.4-5.0)
[2019-01-14 09:25] LABS: HEMATOCRIT 29.6 % (42.0-52.0); HEMOGLOBIN 9.8 g/dl (13.5-18.0); MEAN CORPUSCULAR HEMOGLOBIN 33 pg (27.0-31.0)
--- NOTE | 2019-01-14 09:30 | NUR ---
WBC result reported to BARRERA Manzano
--- NOTE | 2019-01-14 09:39 | NUR ---
Natacha notified of patient's blood sugar of 131
--- NOTE | 2019-01-14 10:02 | NUR ---
ambulating in roach with physical therapy
[2019-01-14 10:13] LABS: INR 1.4 (0.8-3.0); PROTHROMBIN TIME 16.8 SECONDS (9.7-12.8)
[2019-01-14 10:22] LABS: BAND 29 % (0-10); BASOPHIL 1 % (0-2); EOSINOPHIL 2 % (0-4); LYMPHOCYTE 23 % (20.0-51.0); METAMYELOCYTE 2 % (0-0); NEUTROPHILS 36 % (42.0-75.2)
[2019-01-14 10:23] LABS: HYPOCHROMIA 1+
[2019-01-14 10:24] LABS: ANISOCYTOSIS 3+; PLATELET ESTIMATE DECREASED (NORMAL); POLYCHROMASIA 1+
--- NOTE | 2019-01-14 11:25 | NUR ---
Dr Jones and care team in to see patient
[2019-01-14 11:39] VITALS: BP 106/66; PULSE 74; TEMP 98.6
--- NOTE | 2019-01-14 12:30 | NUR ---
sitting up in bed eating lunch
--- NOTE | 2019-01-14 14:45 | NUR ---
sitting up on bench seat, chair alarm placed
[2019-01-14 15:25] VITALS: BP 102/70; PULSE 68; TEMP 98.7
--- NOTE | 2019-01-14 16:07 | NUR ---
remains sitting up on bench seat
[2019-01-14] MEDS ORDERED: OS-CAL 500 + D1 TAB PO (16:14)
[2019-01-14] MEDS ORDERED: VITAMIN C500 MG PO (16:15)
[2019-01-14] MEDS ORDERED: LOPRESSOR 550 MG/TAB PO (16:22)
--- NOTE | 2019-01-14 16:43 | NUR ---
Metal Furniture Polisher spoke with HEMANT Contreras who advised patient would discharge to [facility] this evening at 7:00pm.
--- NOTE | 2019-01-14 16:50 | NUR ---
remains sitting up on bench seat, offered to assist back to bed but is comfortable where he is
[2019-01-14 16:51] VITALS: BP 102/70; PULSE 68; TEMP 98.7
[2019-01-14] MEDS ORDERED: NORCO 325 MG-51 TAB PO (17:05)
--- NOTE | 2019-01-14 17:55 | NUR ---
visiting with and a friend, telemetry and INT discontinued
--- NOTE | 2019-01-14 18:49 | NUR ---
discharged to Inpatient Rehab per WC to room 336
--- NOTE | 2019-01-14 18:50 | NUR ---
bedside shift report given to HEMANT Redd
== END 2019-01-14 18:50 | DRG 481 ==
LOC: COL.ER 10:11 → SURG 10:49
PROVIDERS: Emergency Medicine; Nurse Practitioner Family; Orthopaedic Surgery Sports Medicine; Physician Assistant; Student in an Organized Health Care Education/Training Program; ADMIT Hospitalist
PROC: 0QS736Z Reposition Left Upper Femur with Intramedullary Internal Fixation Device, Percutaneous Approach (ICD-10-PCS; principal; 2019-01-09 16:00)
DX: S72.142A Displaced intertrochanteric fracture of left femur, initial encounter for closed fracture (principal); C90.00 Multiple myeloma not having achieved remission; I48.20 Chronic atrial fibrillation, unspecified; D61.818 Other pancytopenia; I42.9 Cardiomyopathy, unspecified; E87.1 Hypo-osmolality and hyponatremia; E87.6 Hypokalemia; I25.10 Atherosclerotic heart disease of native coronary artery without angina pectoris; F32.9 Major depressive disorder, single episode, unspecified; K52.9 Noninfective gastroenteritis and colitis, unspecified; M81.0 Age-related osteoporosis without current pathological fracture; G47.00 Insomnia, unspecified; G62.9 Polyneuropathy, unspecified; N18.3 Chronic kidney disease, stage 3 (moderate); D69.6 Thrombocytopenia, unspecified; E16.2 Hypoglycemia, unspecified; W01.0XXA Fall on same level from slipping, tripping and stumbling without subsequent striking against object, initial encounter; Z79.01 Long term (current) use of anticoagulants; Z88.0 Allergy status to penicillin; Y92.009 Unspecified place in unspecified non-institutional (private) residence as the place of occurrence of the external cause; Y93.9 Activity, unspecified; Y99.9 Unspecified external cause status; Z95.0 Presence of cardiac pacemaker
CPT/HCPCS: 99222-AI; 99232-AI; 99233-AI; 99239; A9284; C1713; J0690; J1100; J2250; J2270; J2704; J2795; J3010; J3430; J3480; J7030; P9037; P9040

== ENCOUNTER 2019-01-14 14:46 | Inpatient (IN) | payer BC, MEDICARE ==
[~2019-01-14] VITALS: Ht 167.6 cm; Wt 73.0 kg
[~2019-01-14 14:46] MED LIST changes: +ULTRAM 50MG TAB50 MG PO
[2019-01-14] MEDS ORDERED: OS-CAL 500 + D1 TAB PO (16:14)
[2019-01-14] MEDS ORDERED: VITAMIN C500 MG PO (16:15)
[2019-01-14] MEDS ORDERED: LOPRESSOR 550 MG/TAB PO (16:22)
[2019-01-14] MEDS ORDERED: NORCO 325 MG-51 TAB PO (17:05)
--- NOTE | 2019-01-14 19:00 | NUR ---
Patient admitted to room 336 via wheelchair. Report received from Diane MARCOS. See admission assessment.
--- NOTE | 2019-01-14 19:21 | NUR ---
bedside shift report given to HEMANT Redd
[2019-01-14 19:22] VITALS: BP 133/70; PULSE 71; TEMP 100.1
--- NOTE | 2019-01-14 20:00 | NUR ---
HS meds all reviewed and given along with norco for generalized pain all over and left hip achyness. Left hip incisions with red bruising, warmth and swelling and elevated on pillow. Ice applied. SCD's applied. Has BLE edema 3+. Oriented to room and call light. Admission consent signed. Declines snack and HS care at this time. Watches Football game on TV.
--- NOTE | 2019-01-15 01:54 | NUR ---
Patient sitting up on side of bed using urinal and reports has been resting. Urinal emptied and patient assisted to rest back in bed. LLE elevated on pillow. SCDs on. Denies need for pain med at this time.
[2019-01-15 04:46] VITALS: BP 131/68; PULSE 70; TEMP 98.7
[2019-01-15 06:00] VITALS: BP 131/68; PULSE 70; TEMP 98.7
--- NOTE | 2019-01-15 06:25 | NUR ---
RESTS WITH EYES CLOSED. RESPIRATIONS WITH EASE.
--- NOTE | 2019-01-15 10:13 | NUR ---
Patient reporting some pain to left leg this morning. Was given prn [place]. He has +3 edema to the left leg and foot. Has good cap refill and pulse in left foot. Will contact Ortho to provide an update on patient. Will continue to monitor.
--- NOTE | 2019-01-15 12:06 | NUR ---
Call placed to Dr. Best's nurse reporting of patient having swelling to left foot/leg of +3. This nurse asked if patient was to have fady hose on. This nurse received new orders per Dr. Best's nurse to continue with ice packs to hip; apply thigh high fady hose; elevate left leg and ambulate often. This nurse voiced understanding and will continue to monitor.
--- NOTE | 2019-01-15 12:52 | NUR ---
Measured patient for thigh high fady hose. This nurse applied fady hose to patient. Patient currently resting in recliner at this time, call light in reach and chair alarm on. Pain 5/10 this afternoon and given prn Hydrocodone. Will continue to monitor.
--- NOTE | 2019-01-15 15:21 | NUR ---
Operational Intelligence Analyst met with patient to complete initial intake and discuss discharge planning. Patient states he lives in [place] with his , Ramesh (ph#[phone]). Patient reports he sees Dr. Weir for Primary Care and obtains his medications from [facility] with no issue. Patient has no concerns at this time about returning home upon discharge. SW will continue to follow.
--- NOTE | 2019-01-15 17:26 | NUR ---
Patient refused to put the chair in a reclined position. Santhosh hose are on, slip proof socks over them, Call light in reach, chair alarm on and patient is currently eating his supper.
[2019-01-15 17:39] VITALS: BP 110/75; PULSE 69; TEMP 98.3
--- NOTE | 2019-01-15 20:20 | NUR ---
HS MEDS ALONG WITH CALOS FOR SLEEP AND DEE DEE FOR PAIN REVIEWED AND GIVEN. ALERT AND ORIENTED. WATCHES TV. REPORTS MINIMAL PAIN LEFT HIP AT REST BUT GRIMACES AND CALLS OUT WITH MOVEMENT. ICE PACK LEFT HIP AND ELEVATED ON PILLOW. DECLINES SNACK. REPORTS HE'S SORE AND TIRED FROM THERAPY.
--- NOTE | 2019-01-16 01:30 | NUR ---
Patient rests with eyes closed. Awakened when nurse in to empty urinal. States he's been sleeping well. Denies needs.
--- NOTE | 2019-01-16 02:13 | NUR ---
Patient rests with eyes closed. Respirations with ease.
[2019-01-16 03:48] VITALS: BP 107/70; PULSE 72; TEMP 98.3
--- NOTE | 2019-01-16 05:45 | NUR ---
PATIENT RESTS WITH EYES CLOSED. RESPIRATIONS WITH EASE.
--- NOTE | 2019-01-16 06:30 | NUR ---
SHIFT REPORT RECEIVED FROM CHRIS MARCOS
[2019-01-16 06:56] LABS: MEAN CELL VOLUME 96 fl (80.0-100.0); MEAN CORPUSCULAR HGB CONC 34 g/dl (33.0-37.0); MEAN PLATELET VOLUME 11.1 fl (7.4-10.4); PLATELET COUNT 53 K/mm3 (130-400); RED BLOOD COUNT 2.48 M/mm3 (4.20-5.60); REDCELL DISTRIBUTION WIDTH-CV 17.1 % (11.5-14.5)
[2019-01-16 07:01] LABS: INR 1.5 (0.8-3.0); PROTHROMBIN TIME 17.9 SECONDS (9.7-12.8)
[2019-01-16 07:04] LABS: HEMATOCRIT 23.9 % (42.0-52.0); HEMOGLOBIN 8.1 g/dl (13.5-18.0); MEAN CORPUSCULAR HEMOGLOBIN 33 pg (27.0-31.0)
[2019-01-16 07:12] LABS: CALCIUM 8.7 mg/dL (8.4-10.2); CREATININE, serum 0.87 (0.66-1.25); POTASSIUM 3.9 mmol/L (3.4-5.0)
[2019-01-16 08:03] LABS: BAND 20 % (0-10); EOSINOPHIL 6 % (0-4); LYMPHOCYTE 22 % (20.0-51.0); METAMYELOCYTE 2 % (0-0); NEUTROPHILS 46 % (42.0-75.2); PLATELET ESTIMATE DECREASED (NORMAL)
[2019-01-16 08:04] LABS: ANISOCYTOSIS 1+
--- NOTE | 2019-01-16 15:51 | NUR ---
jig worker met with patient and provided written team conference notes. Patient will be re-evaluated next week.
[2019-01-16 16:12] VITALS: BP 120/73; PULSE 71; TEMP 99.1
--- NOTE | 2019-01-16 16:53 | NUR ---
UP IN CHAIR AT BEDSIDE WITH NO COMPLAINTS AT THIS TIME. NO CHANGES IN ACTIVITY/MEDS/DIET ORDERS CURRENTLY. PLANS ON RETURNING TO BED AFTER SUPPER MEAL AND TAKING PAIN MEDS WITH SCHEDULED HS MEDS.
--- NOTE | 2019-01-16 17:41 | NUR ---
WILL GIVE BEDSIDE REPORT TO NIGHT NURSE WHO WILL RESUME CARE
--- NOTE | 2019-01-16 21:00 | NUR ---
PT REQUESTED PAIN MEDICATION BUT DENEID ANY PAIN. OFFERED AMBIEN INSTEAD. PT OK WITH THIS.
--- NOTE | 2019-01-16 21:00 | NUR ---
PT RESTING IN BED. A&OX4. TOOK GIOVANNI HOSE OFF. BILAT FEET EXTEMELY SWOLLE AND FLUID FILLED. ELEVATED ON PILLOWS. SCD'S ON. ENC GOOD ALIGNMENT TO LLE. TENTANCY TO ROTATE OUT. PILLOW PLACED FOR GOOD ALIGHNMENT. CALL LIGHT IN REACH. BED ALARM SET.
[2019-01-17 05:28] VITALS: BP 112/70; PULSE 70; TEMP 98.4
--- NOTE | 2019-01-17 06:30 | NUR ---
RECEIVED SHIFT REPORT FROM TUGBOAT PILOT NURSE NOHEMI
--- NOTE | 2019-01-17 13:37 | NUR ---
Admission QIM scores were reviewed by the team. Code of 88 chosen for walking 50 feet. This was determined by team discussion to be the most usual performance prior to introducing any interventions for this patient during the assessment period. --Ele Zabala, BREAKDOWN MILL OPERATOR/Inpatient Rehab Plisse Machine Operator Helper
[2019-01-17 15:57] VITALS: BP 123/75; PULSE 70; TEMP 97.6
--- NOTE | 2019-01-17 16:06 | NUR ---
Reminded pt to elevate legs, yellow gripper socks and TEDs in place, visiting, call lt in reach. Agree with Cyn's assessment.
[2019-01-17 20:44] VITALS: BP 124/72
--- NOTE | 2019-01-18 01:28 | NUR ---
PATIENT DOING WELL THROUGHOUT NIGHT. TOOK SCHEDULED MEDS WITHOUT DIFFICULTY. REQUESTED PRN AMBIEN TO HELP SLEEP. DENIES PAIN OR NEED FOR PAIN MEDICATION. BP 124/72, LOPRESSOR GIVEN. GIOVANNI HARRELL ON. DRESSING TO L HIP CDI. BILATERAL LEGS ELEVATED. SOME BRUISING NOTED TO L HIP. DENIES FURTHER NEEDS. WILL CONTINUE TO MONITOR.
[2019-01-18 04:50] VITALS: BP 110/62; PULSE 61; TEMP 98.4
[2019-01-18 07:15] LABS: MEAN CELL VOLUME 96 fl (80.0-100.0); MEAN CORPUSCULAR HGB CONC 33 g/dl (33.0-37.0); MEAN PLATELET VOLUME 11.1 fl (7.4-10.4); PLATELET COUNT 70 K/mm3 (130-400); RED BLOOD COUNT 2.39 M/mm3 (4.20-5.60); REDCELL DISTRIBUTION WIDTH-CV 17.2 % (11.5-14.5)
[2019-01-18 07:20] LABS: INR 1.9 (0.8-3.0); PROTHROMBIN TIME 22.2 SECONDS (9.7-12.8)
[2019-01-18 07:25] LABS: HEMOGLOBIN 7.5 g/dl (13.5-18.0); MEAN CORPUSCULAR HEMOGLOBIN 31 pg (27.0-31.0)
[2019-01-18 07:33] VITALS: BP 120/66
[2019-01-18 07:34] LABS: CALCIUM 8.7 mg/dL (8.4-10.2); CREATININE, serum 1.05 (0.66-1.25); POTASSIUM 3.6 mmol/L (3.4-5.0)
[2019-01-18 08:06] LABS: ANISOCYTOSIS 1+; BAND 16 % (0-10); EOSINOPHIL 4 % (0-4); LYMPHOCYTE 13 % (20.0-51.0); METAMYELOCYTE 2 % (0-0); MYELOCYTE 1 % (0-0); NEUTROPHILS 59 % (42.0-75.2); PLATELET ESTIMATE DECREASED (NORMAL)
--- NOTE | 2019-01-18 09:22 | NUR ---
Report from HEMANT Crow. Pt called to EELNO barker assisted. With therapy now.
--- NOTE | 2019-01-18 10:45 | NUR ---
UP WITH PT, WALKING REPORTING PAIN LEVEL 6-7/10 BUT REFUSES ADDITIONAL PAIN MED INTERVENTION AT THIS TIME. REPORTS "SHORTNESS OF BREATH" WITH EXERTION.
--- NOTE | 2019-01-18 12:12 | NUR ---
Found pt in chair staring at his food, prompted/enc him to eat his hot food items, he denies appetite/nausea.
--- NOTE | 2019-01-18 13:03 | NUR ---
Pt declined norco or tylenol.
[2019-01-18 15:56] VITALS: BP 113/68; PULSE 71; TEMP 97.8
--- NOTE | 2019-01-18 16:01 | NUR ---
HRR, LCTA, hyperactive BS, no N/V, having loose stools (chronic), BLE edeama L +3, R +1, voiding, glasses in place, edu about elevating BLE and nutrition, left heel boggy without redness, mepilex dressings to bridge of feet intact to cover skin breakdown reported by JUDY Young prior. Chair alarm on.
--- NOTE | 2019-01-18 18:30 | NUR ---
REPORT GIVEN TO CORPSMAN NURSE CHRIS
--- NOTE | 2019-01-18 21:00 | NUR ---
HS meds all reviewed and given. BLE elevated on pillow.Santhosh hose removed and SCD'S on. Mepilex to top of feet CDI. Inner buttucks reddened/blanchable and barrier cream applied later when up to the bathroom. Watches TV and several visitors in and at bedside. Denies pain at this time.
--- NOTE | 2019-01-19 02:47 | NUR ---
Patient awake and using urinal.
--- NOTE | 2019-01-19 04:30 | NUR ---
Patient awakened and denies pain or needs. Urinal emptied by nurse.
[2019-01-19 04:55] VITALS: BP 111/71; PULSE 73; TEMP 97.7
--- NOTE | 2019-01-19 12:29 | NUR ---
Patient currently resting in recliner, call light in reach and alarm is on watching the [employer] Football game.
--- NOTE | 2019-01-19 14:37 | NUR ---
Patient watching TV at this time in his recliner. Refused to put on his fady hose today as well as elevate his legs. This nurse did apply lotion to his bilateral legs due to flacking skin.
--- NOTE | 2019-01-19 16:26 | NUR ---
Patient refused any pain meds at this time. Said that he could use one at bed time. Will communicate this to the night nurse.
--- NOTE | 2019-01-19 16:30 | NUR ---
Patient uses a urinal and staff empties it for him.
--- NOTE | 2019-01-19 16:40 | NUR ---
Patient has requested no white milk only chocolate milk. He also requested that he not get any snacks, Enlive, Ensure during the day or night. He said he would not drink them. This was communicated to dietary via fax today.
[2019-01-19 17:08] VITALS: BP 125/83; PULSE 69; TEMP 98.2
--- NOTE | 2019-01-19 21:00 | NUR ---
Patient standby assist to bed and able to rest himself back in bed. Alert and oriented. BLE elevated on pillow and scd's on. HS meds along with pain and sleep med reviewed and given. Declines snack or further needs.
--- NOTE | 2019-01-19 22:50 | NUR ---
Patient rests with eyes closed. Respirations with ease. Lights turned off.
--- NOTE | 2019-01-20 03:00 | NUR ---
Patient rests with eyes closed. Respirations with ease.
--- NOTE | 2019-01-20 03:31 | NUR ---
Patient up to the bathroom min assist with walker and back to bed.
[2019-01-20 03:39] VITALS: BP 126/76; PULSE 56; TEMP 97.7
--- NOTE | 2019-01-20 10:29 | NUR ---
Patient resting in recliner at this time, call light in reach. Patient does not like to eat much for breakfast and he ate approx 25% this morning. Patient refuses any snacks that he is given through day. Will continue to encourage, but states that he likes the original boost better. Does not like Ensure or Enlive at all. Patient refused any pain meds this morning. Staff was able to convince him to put his GIOVANNI hose on this morning. He still refuses to elevate his legs during the day. Will continue to encourage him though.
[2019-01-20 12:06] LABS: INR 2.6 (0.8-3.0); PROTHROMBIN TIME 31.4 SECONDS (9.7-12.8)
--- NOTE | 2019-01-20 14:14 | NUR ---
Patient resting in his recliner watching TV. Has chair alarm on, call light in reach and slip proofs socks on.
[2019-01-20 17:04] VITALS: BP 122/75; PULSE 73; TEMP 99
--- NOTE | 2019-01-20 21:39 | NUR ---
Pt. laying in bed at this time. Pt. is A&OX3, assessment complete. Dressings to lt. hip CDI with gauze. Pt. rates pain at a 4 on pain scale, Pt. would like a pain pill with evening meds, gave per orders. Pt. denies further needs, call light within reach.
[2019-01-21 03:40] VITALS: BP 108/69; PULSE 70; TEMP 98.5
[2019-01-21 07:09] LABS: BASO % 0.4 % (0.0-2.0); EOS # 0.2 (0.0-0.7); EOS % 6.4 % (0-4.0); GRAN # 1.7 (1.4-6.5); GRAN % 62.7 % (42.2-75.2); LYMPH # 0.4 (1.2-3.4); LYMPH % 16.2 % (20.0-51.0); MEAN CELL VOLUME 97 fl (80.0-100.0); MEAN CORPUSCULAR HGB CONC 33 g/dl (33.0-37.0); MEAN PLATELET VOLUME 10.7 fl (7.4-10.4); MONO # 0.4 (0.1-0.6); MONO % 13.2 % (1.7-9.3); PLATELET COUNT 98 K/mm3 (130-400); RED BLOOD COUNT 2.41 M/mm3 (4.20-5.60); REDCELL DISTRIBUTION WIDTH-CV 17.8 % (11.5-14.5)
[2019-01-21 07:11] LABS: INR 2.6 (0.8-3.0)
[2019-01-21 07:21] LABS: HEMATOCRIT 23.4 % (42.0-52.0); HEMOGLOBIN 7.7 g/dl (13.5-18.0); MEAN CORPUSCULAR HEMOGLOBIN 32 pg (27.0-31.0)
[2019-01-21 07:23] LABS: CALCIUM 8.9 mg/dL (8.4-10.2); CREATININE, serum 1.06 (0.66-1.25); MAGNESIUM 1.9 mg/dL (1.6-2.3); POTASSIUM 3.1 mmol/L (3.4-5.0)
--- NOTE | 2019-01-21 07:59 | NUR ---
Report from HEMANT Davis. Pt called to toilet, assisted by ELENO.
[2019-01-21 08:50] VITALS: BP 121/76; PULSE 70
--- NOTE | 2019-01-21 09:33 | NUR ---
Assessment complete, noted blood blistered areas over bridge of feet in crease after removing mepilex dressings, they are dark red-purple in color. Pt has shower at 1100 and will re-apply mepilex to protect from TEDs wrinkling over this area and irritating more. Pt has scaly dry skin and an abrasion to left knee as a dry scab and intact. Edema to LLE>RLE, left heel pink and boggy but no redness. Pt reports taking imodium at home for his loose stools, enc to ask doctor today. Declined pain meds, enc to ask for later PRN. Pt verbalized understanding, bed alarm on, call lt in reach, yellow grippers and wrist band in place.
[2019-01-21 16:57] VITALS: BP 117/81; PULSE 96; TEMP 98.2
--- NOTE | 2019-01-21 19:29 | NUR ---
Bedside report to HEMANT Noyola. Pt in chair, had removed his gripper socks, TEDS in place, chair alarm on, call lt in reach.
--- NOTE | 2019-01-21 19:40 | NUR ---
Report received from HEMANT Jaeger.
--- NOTE | 2019-01-22 05:41 | NUR ---
Patient has rested well throughout the night. Education provided on elevating left leg to reduce edema. Patient verbalized understanding. Patient states some discomfort to bilateral feet d/t edema. Utilized urinal for toileting needs throughout the night. Denies any further needs. Will continue to monitor.
[2019-01-22 05:45] VITALS: BP 114/70; PULSE 67; TEMP 98.3
--- NOTE | 2019-01-22 08:16 | NUR ---
Report from HEMANT Noyola. Pt called to toilet, stool culture sample collected and sent to lab. Enc pt to take imodium and tylenol prior to therapy, declined at first, then agreeable. Cont to have SOA with exertion, chronic per pt. Yellow gripper socks, glasses, HAs in place. Mepilex over red areas to bridge/crease of feet, dated. Enc pt to keep BLE elevated in chair, assisted. Call lt in reach, alarm on.
--- NOTE | 2019-01-22 11:47 | NUR ---
Visited w/ pt. Stated things have been going fine but feels he hasn't made as much progress & he would like. We talked about expectations we have of ourselves & functioning. Informed pt of Team Conference tomorrow & the pt/family conference afterwards. He had no questions or concerns at this time.
--- NOTE | 2019-01-22 12:17 | NUR ---
Pt to chair for lunch, gripper socks in place, call lt in reach, enc pt to elevate legs, declines tylenol at this time. Assisted with donning thigh high TEDs.
[2019-01-22 16:25] VITALS: BP 116/77; PULSE 71; TEMP 98.2
--- NOTE | 2019-01-22 17:56 | NUR ---
Pt toileted, returned to bed, alarm on, call lt in reach, SCDs and TEDs to BLE on pillows. Desitin cream to buttocks and sacral area reddened, flaking, rash.
--- NOTE | 2019-01-22 19:23 | NUR ---
Bedside report to HEMANT Redd. Bed alarm on, call lt in reach, BLE on pillows with SCDs and yellow gripper socks in place.
--- NOTE | 2019-01-22 21:00 | NUR ---
Patient rests in bed. States he's tired tonight. HS meds all reviewed and given. Santhosh hose removed and SCD's applied. Continues with BLE edema and elevated on pillow. Denies pain at this time. Declines snack. Alert and oriented x 4. Pleasant.
--- NOTE | 2019-01-23 01:20 | NUR ---
Patient has been resting with eyes closed. Respirations with ease.
--- NOTE | 2019-01-23 03:00 | NUR ---
Patient awake and nurse empties urinal. Denies pain or needs.
[2019-01-23 05:14] VITALS: BP 108/72; PULSE 70; TEMP 98.4
[2019-01-23 07:07] LABS: BASO % 0.4 % (0.0-2.0); EOS # 0.2 (0.0-0.7); EOS % 5.7 % (0-4.0); GRAN # 1.6 (1.4-6.5); GRAN % 59.8 % (42.2-75.2); INR 3.4 (0.8-3.0); LYMPH # 0.5 (1.2-3.4); LYMPH % 19.2 % (20.0-51.0); MEAN CELL VOLUME 97 fl (80.0-100.0); MEAN CORPUSCULAR HGB CONC 33 g/dl (33.0-37.0); MEAN PLATELET VOLUME 9.5 fl (7.4-10.4); MONO # 0.4 (0.1-0.6); MONO % 13.8 % (1.7-9.3); PLATELET COUNT 87 K/mm3 (130-400); PROTHROMBIN TIME 41.2 SECONDS (9.7-12.8); RED BLOOD COUNT 2.36 M/mm3 (4.20-5.60); REDCELL DISTRIBUTION WIDTH-CV 17.7 % (11.5-14.5)
[2019-01-23 07:12] LABS: HEMATOCRIT 22.8 % (42.0-52.0); HEMOGLOBIN 7.6 g/dl (13.5-18.0); MEAN CORPUSCULAR HEMOGLOBIN 32 pg (27.0-31.0)
[2019-01-23 07:30] LABS: CALCIUM 9.1 mg/dL (8.4-10.2); CREATININE, serum 1.08 (0.66-1.25); MAGNESIUM 1.8 mg/dL (1.6-2.3)
[2019-01-23 07:32] VITALS: BP 112/72
--- NOTE | 2019-01-23 09:48 | NUR ---
Patient working with therapy at this time. Patient reports that he is not a morning person and likes to sleep in as long as he can before therapy starts. He did eat 50% of his meal this morning, also stating that he does not eat big meals. Patient reporting 2/10 pain to left hip and given prn Tylenol. Will continue to monitor.
--- NOTE | 2019-01-23 13:50 | NUR ---
A Family Conference was conducted with pt & his , Ramesh. Also present was PT, OT, ST, & At Risk Paraprofessional/SW. At Risk Paraprofessional/SW started by explaining the purpose of the meeting. The therapists explained how pt has been functioning & has made good progress, which they were very pleased to hear. Informed them of d/c of d/c for Monday or Monday & they decided on 01/26/19, w/ recommendations for home w/ outpatient therapy. They asked questions which team answered. Pt & are pleased with progress & care pt is receiving.
[2019-01-23 17:30] VITALS: BP 109/73; PULSE 71; TEMP 98.6
--- NOTE | 2019-01-23 19:59 | NUR ---
Patient currently resting in bed, call light in reach and bed alarm is on. Patient reported to ELENO/Caroline that he was having some arm pain, but when this nurse came in to verify this he said that it was nothing. Will continue to monitor. Patient had a family meeting today and patient reported that he would be going home either Monday or Monday this week. He continues to have edema to bilateral feet, and did wear fady hose this morning for a while. He currently has his legs elevated in bed at this time. Reported off to night nurse.
--- NOTE | 2019-01-23 21:00 | NUR ---
HS meds all reviewed and given. Patient rests in bed and denies pain at this time. BLE elevated on pillows. declines SCS's tonight. Declines snack.
[2019-01-24 02:59] VITALS: BP 110/68; PULSE 89; TEMP 97.5
--- NOTE | 2019-01-24 03:00 | NUR ---
Patient awake/has been resting quietly with eyes closed this noc. Nurse assists patient to the bathroom and back to bed. Denies pain.
--- NOTE | 2019-01-24 07:30 | NUR ---
Received call from Lab about a critical value PT/INR. This was called to Dr. Amaro and to the lab as his coumadin is being managed by the pharmacy. Dr. Amaro ordered coumadin to be placed on hold. Pharmacy is aware of this new order. Will continue to monitor.
[2019-01-24 07:37] LABS: INR 3.7 (0.8-3.0)
[2019-01-24 07:52] LABS: PROTHROMBIN TIME 45.5 SECONDS (9.7-12.8)
[2019-01-24 15:03] VITALS: BP 110/73; PULSE 72; TEMP 97.9
--- NOTE | 2019-01-24 20:32 | NUR ---
This nurse put in new lab orders for PT/INR to be drawn the next three days per Emerson in pharmacy. Coumadin was placed on hold for tonight. Patient was made independent in his room per OT this afternoon. Staff removed patient's urinal in his room now that he is Mod I in his room, but patient reports that he uses the urinal at home. Staff saw that he grabbed the urinal again and was using it. Patient does have some urgency when needing to use the bathroom so this nurse felt it safer for him to use the urinal instead of rushing to the bathroom. This was communicated to the night nurse. Will continue to monitor. Patient continues to eat small amounts of food for each meal, stating that he does not eat a lot. Patient reported that his pain was around 2/10, but that even when getting the Charlotte he doesn't seem to notice a change in pain level. He did receive one Charlotte this afternoon and requests one at as well.
--- NOTE | 2019-01-24 20:50 | NUR ---
PT REESTING IN BED. PLEASANT AND COOPERATIVE. WATCHING TV. X3 GAUZE WITH TEGADERM DIONNE DC'D AT THIS TIME. STERI STRIPS INTACT. NO DRAINAGE. MOD I IN ROOM WITH WALKER. USES URINAL AT HOME FOR HX URINARY URGENCY. SEE MAR FOR PAIN MEDS GIVEN. ENC TO USE CALL LIGHT IF UNSTEADY AT ALL AFTER PAIN MED. CALL LIGHT IN REACH.
[2019-01-24 20:58] VITALS: BP 118/79
[2019-01-25 05:31] VITALS: BP 105/73; PULSE 83; TEMP 98.4
[2019-01-25 08:00] LABS: PROTHROMBIN TIME 36.3 SECONDS (9.7-12.8)
--- NOTE | 2019-01-25 08:15 | NUR ---
Patient sitting in the recliner finishing breakfast. A&O. VSS. Reporting pain in feet with palpation. Patient instructed to elevate feet to help with edema. Patient verbalized an understanding. No further needs expressed from patient. Call light within reach
--- NOTE | 2019-01-25 09:28 | NUR ---
Visited w/ pt about d/c plans for tomorrow, 01/26/19. Inquired if they had decided where they wanted to receive outpatient therapy. Pt was unsure but asked SW to contact his . Reviewed he has a r/walker & shower chair. Asked if he had any questions/concerns, which he did not. Reviewed the Medicare Rights form & signed in agreeance.
[2019-01-25 15:17] VITALS: BP 124/74; PULSE 69; TEMP 99
--- NOTE | 2019-01-25 17:58 | NUR ---
Patient sitting in recliner after finishing dinner. A&O, VSS, denies pain and discomfort. Worked with therapy and tolerated well. Nursing staff encouraging patient to elevate legs to help with edema. No further needs expressed from patient. Call light within reach
[2019-01-25 20:47] VITALS: BP 112/70
--- NOTE | 2019-01-25 21:00 | NUR ---
PT RESTING IN BED. MOD I IN ROOM WITH WALKER. DENIES DIFFICULTIES INDEPENDENCE. STILL HAVING LOOSE "BLOW OUTS" BM. SEE MAR FOR IMMODIUM. FEET REMAINS EDEMATOUS. FLOATED HEELS. SCD'S ON. TEDS OFF.
[2019-01-26 05:37] VITALS: BP 108/74; PULSE 87; TEMP 98.3
[2019-01-26 07:49] VITALS: BP 109/69
[2019-01-26 09:09] LABS: INR 3.2 (0.8-3.0); PROTHROMBIN TIME 38.2 SECONDS (9.7-12.8)
[2019-01-26] MEDS ORDERED: LOPRESSOR 225 MG/TAB PO (09:10)
[2019-01-26] MEDS ORDERED: NORCO 325 MG-51 TAB PO (09:10)
[2019-01-26] MEDS ORDERED: COUMADIN 2MG2 MG/TAB PO (09:17)
--- NOTE | 2019-01-26 09:56 | NUR ---
Warfarin Follow-up Pharmacy Note Current regimen: WARFARIN 3 MG QHS LABS: INR 3.2 Changes in therapy: REDUCE TO WARFARIN 2 MG QHS AND CHECK INR DAILY
--- NOTE | 2019-01-26 10:03 | NUR ---
Report from HEMANT Jiménez. Pt misael mod I in room with walker. Declines pain meds at this time. Took pills whole with water. Used urinal at bedside. Gripper socks and glasses in place. Notified pharmacy to return pt's own chemo med: Revlimid. Pt's to pick him up upon discharge. Night nurse gave imodium at shift change this morning. Lopressor held dt BP <110, pt states he feels drowsy this morning. Declined attending group therapy.
--- NOTE | 2019-01-26 10:47 | NUR ---
Verified with Dr. Amaro that pt should be getting home potassium 20 meq BIDF upon discharge. May continue imodium PRN
--- NOTE | 2019-01-26 11:27 | NUR ---
Applied new mepilex foam dressings over creases to bridges of feet at ankles, redness is resolving but still present, no fluid blisters or open skin. Sent two mepilex dressings w/ pt.
--- NOTE | 2019-01-26 17:51 | NUR ---
Morning metoprolol held dt low BP perameters. Enc pt/ to monitor BP's at home, record, and report to PCP. Pt declined desenex cream to buttocks. Pt declined donning GIOVANNI hose. Declined PRN pain meds prior to discharge. Printed health summary, discharge summary, and home med list and reviewed with pt and . Stressed importance of follow up appts and outpt therapy and lab draw orders. Reviewed meds, provided printed prescription for norco, called in prescription for metoprolol, and circled new OTC oscal-D and vit C to get at pharmacy. Belongings gathered by pt//staff including home med Revlimid, bilateral hearing aids, glasses, bag, tablet, and clothes and walker. Pt transported via wheelchair by ELENO Fuentes for ride home with . Pt and denied any questions.
== END 2019-01-26 13:30 | disposition home or self-care (01) | DRG 560 ==
PROVIDERS: ADMIT Internal Medicine
DX: S72.142D Displaced intertrochanteric fracture of left femur, subsequent encounter for closed fracture with routine healing (principal); E87.1 Hypo-osmolality and hyponatremia; C90.00 Multiple myeloma not having achieved remission; D61.818 Other pancytopenia; I48.91 Unspecified atrial fibrillation; F32.9 Major depressive disorder, single episode, unspecified; M81.0 Age-related osteoporosis without current pathological fracture; W18.30XD Fall on same level, unspecified, subsequent encounter; G47.00 Insomnia, unspecified; R19.7 Diarrhea, unspecified; E87.6 Hypokalemia; D64.9 Anemia, unspecified; G62.9 Polyneuropathy, unspecified; N18.3 Chronic kidney disease, stage 3 (moderate); E16.2 Hypoglycemia, unspecified; Z79.01 Long term (current) use of anticoagulants; Z95.0 Presence of cardiac pacemaker; Z88.0 Allergy status to penicillin
CPT/HCPCS: 99222-AI; 99232-AI; 99239

== ENCOUNTER 2019-04-01 08:29 | Inpatient (IN) | payer BC, MEDICARE ==
[~2019-04-01] VITALS: Ht 167.6 cm; Wt 76.7 kg
[~2019-04-01 08:29] MED LIST changes: +COUMADIN 2MG2 MG/TAB PO; +OS-CAL 500 + D1 TAB PO; +VITAMIN C500 MG PO
[2019-04-01 09:33] LABS: MEAN CELL VOLUME 104 fl (80.0-100.0); MEAN CORPUSCULAR HGB CONC 33 g/dl (33.0-37.0); MEAN PLATELET VOLUME 11.1 fl (7.4-10.4); PLATELET COUNT 95 K/mm3 (130-400); RED BLOOD COUNT 2.45 M/mm3 (4.20-5.60); REDCELL DISTRIBUTION WIDTH-CV 16.7 % (11.5-14.5)
[2019-04-01 09:38] LABS: ALBUMIN 3.6 gm/dL (3.5-5.0); BILIRUBIN,TOTAL 1.7 mg/dL (0.0-1.0); C-REACTIVE PROTEIN 7.4 mg/dL (0.0-0.9); CALCIUM 7.8 mg/dL (8.4-10.2); CREATININE, serum 1.11 (0.66-1.25); POTASSIUM 3.5 mmol/L (3.4-5.0)
[2019-04-01 09:39] LABS: INR 1.3 (0.8-3.0); PROTHROMBIN TIME 15.2 SECONDS (9.7-12.8)
[2019-04-01 09:44] LABS: HEMATOCRIT 25.5 % (42.0-52.0); HEMOGLOBIN 8.4 g/dl (13.5-18.0); MEAN CORPUSCULAR HEMOGLOBIN 34 pg (27.0-31.0)
[2019-04-01 09:47] LABS: TROPONIN-I 0.056 ng/mL (0.000-0.035)
[2019-04-01] MEDS ORDERED: CORTEF5 MG (10:19)
[2019-04-01] MEDS ORDERED: JANTOVEN2 MG (10:20)
[2019-04-01] MEDS ORDERED: EMPLICITI300 MG (10:21)
[2019-04-01] MEDS ORDERED: DECADRON 4MG TAB4 MG PO (10:21)
[2019-04-01] MEDS ORDERED: LASIX 80MG TABL80 MG PO (10:22)
[2019-04-01] MEDS ORDERED: K-TAB20 PO (10:23)
[2019-04-01 10:24] LABS: BAND 10 % (0-10); EOSINOPHIL 12 % (0-4); LYMPHOCYTE 48 % (20.0-51.0); NEUTROPHILS 24 % (42.0-75.2); OVALOCYTES 2+; PLATELET ESTIMATE DECREASED (NORMAL); SCHISTOCYTES 1+; TEAR DROP CELLS 1+
[2019-04-01] MEDS ORDERED: REVLIMID15 MG (10:24)
[2019-04-01] MEDS ORDERED: ULTRAM 50MG TAB50 MG PO (10:24)
[2019-04-01 11:05] LABS: COLLECTION METHOD CLEAN CATCH
[2019-04-01 11:20] LABS: PH 8 (5-8); SQUAMOUS EPITHELIAL None Seen /hpf; URINE APPEARANCE Clear; URINE BACTERIA Rare /hpf; URINE BILIRUBIN Negative (NEGATIVE); URINE BLOOD 1+ (NEGATIVE); URINE COLOR Yellow; URINE GLUCOSE 1+ (NEGATIVE); URINE KETONE Negative (NEGATIVE); URINE LEUKOCYTE ESTERASE Negative (NEGATIVE); URINE NITRATE Negative (NEGATIVE); URINE PROTEIN(semi-quant) 1+ (NEGATIVE); URINE RBC 0-2 /hpf; URINE UROBILINOGEN Negative (NEGATIVE)
[2019-04-01 11:49] VITALS: BP 142/72; PULSE 64; TEMP 98.7
--- NOTE | 2019-04-01 11:59 | NUR ---
Patient up to room 348 from ER. Patient and spouse oriented to room. Patient moaning in room, denies pain states "he just likes to complain". Initial and 5 page complete. Antibiotic infusing per orders to right AC IV. Scrape noted to left knee and left arm from fall at home per patient. Tele in place. Denies further needs at this time.
[2019-04-01 15:53] VITALS: BP 117/69; PULSE 65; TEMP 99.9
--- NOTE | 2019-04-01 16:41 | NUR ---
Contacted hospitalist for fluid orders.
--- NOTE | 2019-04-01 18:29 | NUR ---
Patient has done well throughout the day. Has been up to the restroom with x1 assist. Requested pain medication for generalized pain 09/03, medications given per orders. Has fluids infusing per orders to right AC IV. Denies further needs at this time. Will report off to shift coordinator.
--- NOTE | 2019-04-01 20:45 | NUR ---
Pt. sitting up in bed at this time. Pt. is A&OX3, assessment complete. IV to rt. ac patent, IV fluids infusing per orders. Pt. had elevated troponins, Dr. Cerrato notified, new orders received, Dr. Kaplan consulted, and notified. Pt. denies chest pain at this time. Pt. denies further needs, call light within reach.
[2019-04-01 20:53] VITALS: BP 127/74; PULSE 65; TEMP 99.9
[2019-04-01 21:00] VITALS: PULSE 65
[2019-04-01 23:20] VITALS: BP 127/76; PULSE 65; TEMP 101.4
[2019-04-02] VITALS (11 sets, daily range): BP systolic 101–125; BP diastolic 45–85; PULSE 54–66; TEMP 97.7–100.7
--- NOTE | 2019-04-02 00:35 | NUR ---
Pt. has spiked a temp at 101.4, Dr. Mondragon notified for Tylenol orders. Gave Tylenol per orders.
[2019-04-02 06:06] LABS: MEAN CELL VOLUME 105 fl (80.0-100.0); MEAN CORPUSCULAR HGB CONC 33 g/dl (33.0-37.0); PLATELET COUNT 88 K/mm3 (130-400); RED BLOOD COUNT 1.86 M/mm3 (4.20-5.60); REDCELL DISTRIBUTION WIDTH-CV 17.1 % (11.5-14.5)
[2019-04-02 06:13] LABS: HEMATOCRIT 19.5 % (42.0-52.0); HEMOGLOBIN 6.4 g/dl (13.5-18.0); MEAN CORPUSCULAR HEMOGLOBIN 34 pg (27.0-31.0)
[2019-04-02 06:17] LABS: CALCIUM 6.6 mg/dL (8.4-10.2); CREATININE, serum 1.08 (0.66-1.25)
[2019-04-02 06:20] LABS: POTASSIUM 2.9 mmol/L (3.4-5.0)
[2019-04-02 06:29] LABS: TROPONIN-I 0.083 ng/mL (0.000-0.035)
[2019-04-02 07:07] LABS: BAND 8 % (0-10); BASOPHIL 2 % (0-2); EOSINOPHIL 2 % (0-4); LYMPHOCYTE 50 % (20.0-51.0); NEUTROPHILS 32 % (42.0-75.2); OVALOCYTES 2+; SCHISTOCYTES 1+; TEAR DROP CELLS 1+
[2019-04-02 07:08] LABS: PLATELET ESTIMATE DECREASED (NORMAL)
--- NOTE | 2019-04-02 07:10 | NUR ---
Notified Jeanne GARCIA of critical labs
--- NOTE | 2019-04-02 09:45 | NUR ---
SW met with the patient to discuss discharge plan. The patient lives in [place] with his , Ramesh (ph#[phone]). He reports independence with ADLs and has a walker. The patient's PCP is Dr. Apollo Weir and he receives his medications at [facility]. He reports no difficulties obtaining his meds. The patient does not have advanced directives in EMR, but he states that he thinks he has them taken care of and that his would be his DPOA-HC. The patient plans to return home with his upon discharge. No additional needs at this time.
--- NOTE | 2019-04-02 11:40 | NUR ---
First visit from the motion picture commentator. No needs right now.
--- NOTE | 2019-04-02 19:10 | NUR ---
Patient has done well throughout the day. Minimal needs. Has been up to restroom throughout the day with x1 with walker, steady gait. Denies pain throughout the day. Blood transfused per protocol. Denies further needs at this time. Will report off to night patrol inspector.
--- NOTE | 2019-04-02 20:40 | NUR ---
Pt. sitting up in bed at this time. Pt. is A&OX3, assessment complete. INT to rt. wrist was leaking so removed. New site started to lt. wrist 1 attempt made, 20 G. Pt. tolerated well. Pt. reports that he would like to have a pain pill and sleeping pill when ready for bed, will give per mar. Pt. denies further needs, call light within reach.
[2019-04-03 04:46] VITALS: BP 107/70; PULSE 67; TEMP 97.8
[2019-04-03 07:08] LABS: MEAN CELL VOLUME 101 fl (80.0-100.0); MEAN CORPUSCULAR HGB CONC 34 g/dl (33.0-37.0); MEAN PLATELET VOLUME 10.9 fl (7.4-10.4); PLATELET COUNT 88 K/mm3 (130-400); RED BLOOD COUNT 2.58 M/mm3 (4.20-5.60); REDCELL DISTRIBUTION WIDTH-CV 18.1 % (11.5-14.5)
[2019-04-03 07:09] LABS: BILIRUBIN,TOTAL 1.1 mg/dL (0.0-1.0); CREATININE, serum 0.95 (0.66-1.25); MAGNESIUM 1.8 mg/dL (1.6-2.3); TOTAL PROTEIN 5.3 gm/dL (6.4-8.2)
[2019-04-03 07:13] LABS: HEMATOCRIT 26.1 % (42.0-52.0); HEMOGLOBIN 8.9 g/dl (13.5-18.0); MEAN CORPUSCULAR HEMOGLOBIN 34 pg (27.0-31.0)
--- NOTE | 2019-04-03 07:20 | NUR ---
MD Veda in room with pt - MD thinking about adding Neupogen - no other orders or concerns at this time from
[2019-04-03 07:43] LABS: BAND 24 % (0-10); EOSINOPHIL 6 % (0-4); LYMPHOCYTE 22 % (20.0-51.0); NEUTROPHILS 40 % (42.0-75.2); OVALOCYTES 1+; PLATELET ESTIMATE DECREASED (NORMAL); SCHISTOCYTES 1+; TEAR DROP CELLS 1+
[2019-04-03 07:56] VITALS: BP 106/69; PULSE 64; TEMP 97.9
--- NOTE | 2019-04-03 09:13 | NUR ---
Report from Demetrius MARCOS. Pt resting in bed, denies pain and needs at this time.
[2019-04-03 11:59] VITALS: BP 116/76; PULSE 64; TEMP 97.8
[2019-04-03 16:27] VITALS: BP 108/64; PULSE 66; TEMP 99.1
[2019-04-03 20:25] VITALS: BP 124/87; PULSE 75; TEMP 99.5
--- NOTE | 2019-04-03 21:00 | NUR ---
Patient report received from HEMANT Martin. Upon assessment at this time, patient is resting comfortably in the bed watching tv. Patient is making moaning sounds. Reports that he only has mild pain, but just occasionally moans out of habit. Denies n/v. Patient is in neutropenic precautions due to low WBC. WBC up from 1.1 to 2.4 today, still observing precautions. IV fluids infusing. No other needs reported/observed.
[2019-04-04] VITALS (7 sets, daily range): BP systolic 95–131; BP diastolic 67–90; PULSE 62–67; TEMP 97.4–99.1
[2019-04-04 07:20] LABS: MEAN CELL VOLUME 100 fl (80.0-100.0); MEAN CORPUSCULAR HGB CONC 34 g/dl (33.0-37.0); MEAN PLATELET VOLUME 10.9 fl (7.4-10.4); PLATELET COUNT 84 K/mm3 (130-400); RED BLOOD COUNT 2.44 M/mm3 (4.20-5.60)
[2019-04-04 07:22] LABS: HEMATOCRIT 24.5 % (42.0-52.0); HEMOGLOBIN 8.3 g/dl (13.5-18.0); MEAN CORPUSCULAR HEMOGLOBIN 34 pg (27.0-31.0)
[2019-04-04 07:33] LABS: CALCIUM 7.2 mg/dL (8.4-10.2); CREATININE, serum 1.02 (0.66-1.25); MAGNESIUM 1.4 mg/dL (1.6-2.3); POTASSIUM 3.9 mmol/L (3.4-5.0)
[2019-04-04 09:57] LABS: BAND 41 % (0-10); EOSINOPHIL 4 % (0-4); HYPOCHROMIA 1+; LYMPHOCYTE 15 % (20.0-51.0); NEUTROPHILS 30 % (42.0-75.2); PLATELET ESTIMATE DECREASED (NORMAL)
--- NOTE | 2019-04-04 10:00 | NUR ---
Patient is getting potassium and magnesium today. He did get one does of tramadol this am for his sore knee. He stated his pain is not terrible but that he is uncomfortable. Denies nausea. No other changes at this time. Call light within reach.
--- NOTE | 2019-04-04 19:00 | NUR ---
Patients IV went bad when flushing to start the levaquin, it was leaking and swelled about the site. After several attempts there was started in the patient left index finer. Patient knows he is getting a new antibiotic for pneumonia. No other changes at this time. Call light within reach.
--- NOTE | 2019-04-04 20:35 | NUR ---
Pt. laying in bed at this time. Pt. is A&OX3, assessment complete. INT to lt. hand patent. Pt. reports generalized pain at a 4 on pain scale, gave pain meds and sleeping meds per request. Pt. denies further needs, call light within reach.
[2019-04-05] VITALS (8 sets, daily range): BP systolic 111–152; BP diastolic 68–119; PULSE 64–106; TEMP 97.5–99
[2019-04-05 07:06] LABS: MEAN CELL VOLUME 101 fl (80.0-100.0); MEAN CORPUSCULAR HGB CONC 33 g/dl (33.0-37.0); MEAN PLATELET VOLUME 11.5 fl (7.4-10.4); PLATELET COUNT 93 K/mm3 (130-400); RED BLOOD COUNT 2.29 M/mm3 (4.20-5.60); REDCELL DISTRIBUTION WIDTH-CV 17.8 % (11.5-14.5)
[2019-04-05 07:10] LABS: CALCIUM 6.7 mg/dL (8.4-10.2); CREATININE, serum 0.93 (0.66-1.25); MAGNESIUM 1.8 mg/dL (1.6-2.3); POTASSIUM 4.1 mmol/L (3.4-5.0)
[2019-04-05 07:13] LABS: HEMATOCRIT 23.1 % (42.0-52.0); HEMOGLOBIN 7.7 g/dl (13.5-18.0); MEAN CORPUSCULAR HEMOGLOBIN 34 pg (27.0-31.0)
[2019-04-05 08:06] LABS: BAND 17 % (0-10); EOSINOPHIL 1 % (0-4); LYMPHOCYTE 15 % (20.0-51.0); METAMYELOCYTE 1 % (0-0); NEUTROPHILS 57 % (42.0-75.2)
[2019-04-05 08:07] LABS: OVALOCYTES 1+; PLATELET ESTIMATE DECREASED (NORMAL); TEAR DROP CELLS 1+
--- NOTE | 2019-04-05 11:00 | NUR ---
Patient has been doing well this am. No complaints of pain or nausea today. His is at bedside. Explained will be checking him for respiratory viruses. No other changes at this time. Call light within reach.
--- NOTE | 2019-04-05 14:17 | NUR ---
TX REFUSED AT THIS TIME
--- NOTE | 2019-04-05 18:30 | NUR ---
Patient has been placed on droplet precautions. His respratory panel came back positive. Explained to the patient what his treatment. Patient did not eat much today. Encouraged patient to do deep breathing exercises. No other changes at this time. Call light within reach.
--- NOTE | 2019-04-05 21:43 | NUR ---
SUPERVISED TO BATHROOM, HAS BM AND BACK TO BED. MILDLY SHORT OF BREATH WITH ACTIVITY.
[2019-04-06] VITALS (7 sets, daily range): BP systolic 112–135; BP diastolic 69–85; PULSE 64–74; TEMP 97.5–98.6
--- NOTE | 2019-04-06 05:00 | NUR ---
Patient uses urinal at bedside. Has rested fair this shift. PICC to right upper arm intact. Denies needs at this time. Remains in Droplet isolation.
[2019-04-06 07:44] LABS: MEAN CELL VOLUME 102 fl (80.0-100.0); MEAN CORPUSCULAR HGB CONC 33 g/dl (33.0-37.0); MEAN PLATELET VOLUME 11.1 fl (7.4-10.4); PLATELET COUNT 79 K/mm3 (130-400); RED BLOOD COUNT 2.21 M/mm3 (4.20-5.60); REDCELL DISTRIBUTION WIDTH-CV 17.9 % (11.5-14.5)
[2019-04-06 07:51] LABS: ALBUMIN 2.7 gm/dL (3.5-5.0); BILIRUBIN,TOTAL 0.7 mg/dL (0.0-1.0); CREATININE, serum 0.85 (0.66-1.25); POTASSIUM 3.8 mmol/L (3.4-5.0); TOTAL PROTEIN 4.8 gm/dL (6.4-8.2)
--- NOTE | 2019-04-06 08:00 | NUR ---
Patient in bed resting. Alert and oriented x 3. Assessment complete. BLE edema +2 noted. Patient occassionally groaning, denies pain. PICC line to MENDEZ without complications. Denies further needs at this time
[2019-04-06 08:01] LABS: HEMATOCRIT 22.6 % (42.0-52.0); HEMOGLOBIN 7.5 g/dl (13.5-18.0); MEAN CORPUSCULAR HEMOGLOBIN 34 pg (27.0-31.0)
[2019-04-06 09:40] LABS: BAND 19 % (0-10); EOSINOPHIL 2 % (0-4); LYMPHOCYTE 22 % (20.0-51.0); NEUTROPHILS 42 % (42.0-75.2)
[2019-04-06 09:41] LABS: ANISOCYTOSIS 1+; PLATELET ESTIMATE DECREASED (NORMAL)
--- NOTE | 2019-04-06 18:32 | NUR ---
Patient has done well throughout the day. Refused shower but had a bedbath today. Continues to deny pain. Denies further needs at this time. Will report off to fast food shift supervisor.
--- NOTE | 2019-04-06 22:21 | NUR ---
Patient in bed, ready for HS meds. Medicated with Ambien and Tramadol as well as HS meds. Remains edematous in lower legs and arms. Reports shortness of breath is less with activity today and has spent most of day in recliner. Abrasions on left knee with dry scabs and healing. PICC to right upper arm without redness or swelling.
[2019-04-07 03:27] VITALS: BP 120/75; PULSE 66; TEMP 97.6
--- NOTE | 2019-04-07 05:30 | NUR ---
Lab work drawn from PICC. Patient denies needs at this time.
[2019-04-07 05:57] LABS: MEAN CELL VOLUME 102 fl (80.0-100.0); MEAN CORPUSCULAR HGB CONC 33 g/dl (33.0-37.0); MEAN PLATELET VOLUME 11.2 fl (7.4-10.4); PLATELET COUNT 80 K/mm3 (130-400); RED BLOOD COUNT 2.36 M/mm3 (4.20-5.60); REDCELL DISTRIBUTION WIDTH-CV 18.1 % (11.5-14.5)
[2019-04-07 06:00] LABS: MEAN CORPUSCULAR HEMOGLOBIN 34 pg (27.0-31.0)
[2019-04-07 06:08] LABS: CALCIUM 6.6 mg/dL (8.4-10.2); CREATININE, serum 0.82 (0.66-1.25); MAGNESIUM 1.7 mg/dL (1.6-2.3); POTASSIUM 3.2 mmol/L (3.4-5.0)
[2019-04-07 06:16] LABS: ANISOCYTOSIS 2+; BAND 23 % (0-10); EOSINOPHIL 4 % (0-4); LYMPHOCYTE 31 % (20.0-51.0); METAMYELOCYTE 2 % (0-0); NEUTROPHILS 24 % (42.0-75.2); PLATELET ESTIMATE DECREASED (NORMAL)
[2019-04-07 06:17] LABS: OVALOCYTES 1+
[2019-04-07 08:13] VITALS: BP 118/76; PULSE 65; TEMP 97.9
--- NOTE | 2019-04-07 09:00 | NUR ---
Drowsy. No complaints. Frequent dry cough. Afebrile.
[2019-04-07 12:01] VITALS: BP 122/76; PULSE 65; TEMP 98.7
[2019-04-07 15:24] VITALS: BP 107/79; PULSE 65; TEMP 98.8
--- NOTE | 2019-04-07 18:00 | NUR ---
Denieds need for pain medication. Dry cough. Spouse at bedside.
[2019-04-07 19:52] VITALS: BP 128/77; PULSE 65; TEMP 98.3
--- NOTE | 2019-04-07 21:30 | NUR ---
HS MEDS GIVEN INCLUDING AMBIEN AND TRAMADOL. OFFERS NO CONCERNS AT THIS TIME. PICC TO RIGHT UPPER ARM INTACT.
--- NOTE | 2019-04-07 23:57 | NUR ---
Patient refused treatment.
[2019-04-08 00:05] VITALS: BP 99/59; PULSE 66; TEMP 98.5
[2019-04-08 05:27] VITALS: BP 99/58; PULSE 66; TEMP 98.2
[2019-04-08 06:53] LABS: MEAN CELL VOLUME 102 fl (80.0-100.0); MEAN CORPUSCULAR HGB CONC 33 g/dl (33.0-37.0); MEAN PLATELET VOLUME 11.1 fl (7.4-10.4); PLATELET COUNT 73 K/mm3 (130-400); REDCELL DISTRIBUTION WIDTH-CV 17.9 % (11.5-14.5)
[2019-04-08 06:57] LABS: HEMATOCRIT 23.4 % (42.0-52.0); HEMOGLOBIN 7.8 g/dl (13.5-18.0); MEAN CORPUSCULAR HEMOGLOBIN 34 pg (27.0-31.0)
[2019-04-08 07:00] LABS: CALCIUM 6.8 mg/dL (8.4-10.2); CREATININE, serum 0.76 (0.66-1.25); MAGNESIUM 1.4 mg/dL (1.6-2.3); POTASSIUM 3.4 mmol/L (3.4-5.0)
[2019-04-08 07:40] LABS: BAND 16 % (0-10); EOSINOPHIL 3 % (0-4); LYMPHOCYTE 22 % (20.0-51.0); METAMYELOCYTE 3 % (0-0); MYELOCYTE 2 % (0-0); NEUTROPHILS 41 % (42.0-75.2); PLATELET ESTIMATE DECREASED (NORMAL)
[2019-04-08 07:41] LABS: OVALOCYTES 2+; TEAR DROP CELLS 2+
--- NOTE | 2019-04-08 08:00 | NUR ---
Patient alert and oriented x 3. Denies pain at this time. Edema noted to BLE. Denies further needs at this time.
[2019-04-08 08:03] VITALS: BP 117/72; PULSE 65; TEMP 97.3
[2019-04-08 11:55] VITALS: BP 106/74; PULSE 65; TEMP 97.6
--- NOTE | 2019-04-08 14:55 | NUR ---
SW met with the patient to follow up after the weekend and to review discharge plan. The patient states that he is doing okay and that he will be ready to discharge whenever the clinical team says that he can. VON then discussed PT's recommendation of outpatient PT. The patient states that he was receiving outpatient PT at [facility] prior to hospitalization and plans to resume therapy from them upon discharge. He had no other questions or concerns for SW. No additional needs at this time.
--- NOTE | 2019-04-08 16:07 | NUR ---
Contacted Dr. Mccollum, plan for patient discharge for tomorrow after pacer change. No new orders.
[2019-04-08 16:12] VITALS: BP 93/68; PULSE 64; TEMP 98.1
--- NOTE | 2019-04-08 17:30 | NUR ---
Contacted by Dr. Kaplan, plan for pacer battery change at 0800 on 04/09/19 orders entered.
--- NOTE | 2019-04-08 18:02 | NUR ---
Patient has done well throughout the day. Minimal needs, has been up to restroom with walker. Denies pain at this time. concerned about ability to care for patient once he is discharged, works and is unable to stay with him and care for him. Notified hospitalist, order for SW entered, would like to look at home health. Patient denies further needs at this time. Will report off to overnight associate.
[2019-04-08 20:00] VITALS: BP 96/59; PULSE 79; TEMP 97.9
--- NOTE | 2019-04-08 23:25 | NUR ---
Patient did not want treatment at this time.
[2019-04-09] VITALS (10 sets, daily range): BP systolic 95–155; BP diastolic 62–80; PULSE 60–84; TEMP 97.7–98.5
--- NOTE | 2019-04-09 01:25 | NUR ---
Upon assessment patient states he feels "cruddy", which he states is his normal lately. Pain assessment completed and patient states he feels generalized discomfort and requests pain medication. Pain medication administered along with sleeping pill. Lung sounds clear. Denies any further needs. Will continue to monitor.
[2019-04-09 06:28] LABS: MEAN CELL VOLUME 104 fl (80.0-100.0); MEAN CORPUSCULAR HGB CONC 33 g/dl (33.0-37.0); MEAN PLATELET VOLUME 11.7 fl (7.4-10.4); PLATELET COUNT 79 K/mm3 (130-400); RED BLOOD COUNT 2.29 M/mm3 (4.20-5.60); REDCELL DISTRIBUTION WIDTH-CV 18.6 % (11.5-14.5)
[2019-04-09 06:30] LABS: HEMATOCRIT 23.7 % (42.0-52.0); HEMOGLOBIN 7.8 g/dl (13.5-18.0); MEAN CORPUSCULAR HEMOGLOBIN 34 pg (27.0-31.0)
[2019-04-09 06:39] LABS: INR 1.4 (0.8-3.0); PROTHROMBIN TIME 16.8 SECONDS (9.7-12.8)
[2019-04-09 06:52] LABS: CREATININE, serum 0.81 (0.66-1.25); POTASSIUM 3.8 mmol/L (3.4-5.0)
[2019-04-09 07:05] LABS: MAGNESIUM 1.6 mg/dL (1.6-2.3)
[2019-04-09 07:33] LABS: BAND 20 % (0-10); BASOPHIL 2 % (0-2); LYMPHOCYTE 24 % (20.0-51.0); METAMYELOCYTE 6 % (0-0); MYELOCYTE 5 % (0-0); NEUTROPHILS 36 % (42.0-75.2); NUCLEATED RED BLOOD CELL 1 (0-6)
[2019-04-09 07:34] LABS: OVALOCYTES 2+; SCHISTOCYTES 1+; TEAR DROP CELLS 2+
--- NOTE | 2019-04-09 09:00 | NUR ---
Patient is going to the concrete laborer to get his pacemaker battery changed. Consent signed and on chart. Checked with hospitalist and Dr Mccollum if patient was ok to get cath done today, both agreed with the procedure. Patient is being tansferred in the bed. No other changes at this time.
--- NOTE | 2019-04-09 09:43 | NUR ---
SEE MERGE DOCUMENTATION FOR MEDICATION ADMINSITRATION TIMES AND INTRA/POST PROCEDURE SEDATION ASSESSMENTS. ALL LABS REVIEWED WITH PHYSICIAN PRIOR TO PROCEDURE START. ORDER FOR 1GM VANCO IV FOR PROPHYLAXIS.
--- NOTE | 2019-04-09 10:15 | NUR ---
Patient is back from his procedure. He is alert and oriented. Denies pain or nausea. Dressing to incision to left shoulder/chest is C/D/I. Explained to patient to keep his arm down and not to strain with his left arm so he doesn't pull on that incision. Patient verbalized understanding. Vital signs stable. No other changes at this time. Call light within reach.
--- NOTE | 2019-04-09 13:30 | NUR ---
The patient's RN informed VON that the patient's had some questions about home health. VON then followed up with the patient to discuss this option. The patient reports that his is interested in some help, but is unsure of what kind. VON then contacted the patient's to review discharge plan and to discuss home health. The patient's reports that they would prefer to continue with outpatient therapy, due to it being recommended. She states that she could use some help with transportation and grooming for the patient. VON informed the patient how these services would be private pay. The patient's verbalized understanding and was interested in more information on agencies that provide these services. VON provided the patient and his with brochures to [facility], [facility], [facility], and [facility]. VON to continue to follow.
[2019-04-09] MEDS ORDERED: LEVAQUIN 750MG750 M1 PO (15:02)
[2019-04-09] MEDS ORDERED: TOPROL XL 25MG25 MG PO (15:04)
[2019-04-09] MEDS ORDERED: K-TAB20 PO (15:05)
[2019-04-09] MEDS ORDERED: LASIX 40MG TABL40 MG PO (15:05)
--- NOTE | 2019-04-09 15:40 | NUR ---
The patient is to discharge back home with his today, 04/09, with outpatient PT/OT. SW contacted the patient's , Ramesh, to inform of the patient being ready to discharge. Ramesh was in agreeance to the discharge and reports that the patient would like to pursue with outpatient PT/OT. She states that she would prefer to make the appointments herself. VON updated the clinical team. VON then met with the patient and his to present and explain the IM form. The patient's verbalized understanding, signed, and she was provided a copy. No additional needs at this time.
--- NOTE | 2019-04-09 18:00 | NUR ---
Patient has discharged home. Discharge instructions discussed with patient. Follow up questions were answered. Explained when doctors appointments are. Explained the medications patient is being discharge on that are new, the ones that are not new but have been changed and the medications that were discontinued. Explained that there are orders to get labs drawn on the 16th and then next week. Patient and verbalized understanding. PICC line discontinued by Tong Holguin RN. Explained that there are new prescriptions to flower picker a [facility] pharmacy. All belongings packed up and sent with patient. Patient walked out via wheel chair.
== END 2019-04-09 18:00 | disposition home or self-care (01) | DRG 987 ==
LOC: COL.ER 08:29 → SURG 10:04
PROVIDERS: Emergency Medicine; Internal Medicine; Physician Assistant; ADMIT Student in an Organized Health Care Education/Training Program
PROC: 02HV33Z Insertion of Infusion Device into Superior Vena Cava, Percutaneous Approach (ICD-10-PCS; 2019-04-05)
PROC: 0JPT0PZ Removal of Cardiac Rhythm Related Device from Trunk Subcutaneous Tissue and Fascia, Open Approach (ICD-10-PCS; principal; 2019-04-09)
PROC: 0JH606Z Insertion of Pacemaker, Dual Chamber into Chest Subcutaneous Tissue and Fascia, Open Approach (ICD-10-PCS; 2019-04-09)
PROC: 3E0102A Introduction of Anti-Infective Envelope into Subcutaneous Tissue, Open Approach (ICD-10-PCS; 2019-04-09)
DX: D70.9 Neutropenia, unspecified (principal); J18.9 Pneumonia, unspecified organism; I21.A1 Myocardial infarction type 2; C90.00 Multiple myeloma not having achieved remission; Z94.84 Stem cells transplant status; I50.22 Chronic systolic (congestive) heart failure; R65.10 Systemic inflammatory response syndrome (SIRS) of non-infectious origin without acute organ dysfunction; I42.9 Cardiomyopathy, unspecified; E87.2 Acidosis; I48.92 Unspecified atrial flutter; S80.212A Abrasion, left knee, initial encounter; S30.0XXA Contusion of lower back and pelvis, initial encounter; D64.9 Anemia, unspecified; M25.562 Pain in left knee; E83.42 Hypomagnesemia; E87.6 Hypokalemia; I08.1 Rheumatic disorders of both mitral and tricuspid valves; B34.8 Other viral infections of unspecified site; R50.81 Fever presenting with conditions classified elsewhere; I27.20 Pulmonary hypertension, unspecified; I10 Essential (primary) hypertension; I48.91 Unspecified atrial fibrillation; W19.XXXA Unspecified fall, initial encounter; Y92.009 Unspecified place in unspecified non-institutional (private) residence as the place of occurrence of the external cause; Z79.83 Long term (current) use of bisphosphonates; Z79.01 Long term (current) use of anticoagulants; Z79.891 Long term (current) use of opiate analgesic; Z95.0 Presence of cardiac pacemaker; Z88.0 Allergy status to penicillin
CPT/HCPCS: 99231-AI; 99232-AI; 99233-AI; 99239; A9284; C1751; C1892; J0692; J1447; J1956; J2250; J3010; J3370; J3475; J3480; J7030; J7050; P9040

== ENCOUNTER 2019-04-22 11:15 | Outpatient (RCR) | payer BC ==
[~2019-04-22 11:15] MED LIST changes: +CORTEF5 MG; +EMPLICITI300 MG; +JANTOVEN2 MG; +K-TAB20 PO; +LASIX 80MG TABL80 MG PO; +LEVAQUIN 750MG750 M1 PO; +REVLIMID15 MG; +TOPROL XL 25MG25 MG PO
== END 2019-04-25 14:31 | disposition home or self-care (01) ==
LOC: WSC 11:15
DX: S72.142D Displaced intertrochanteric fracture of left femur, subsequent encounter for closed fracture with routine healing (principal)

== ENCOUNTER 2019-10-09 08:27 | Inpatient (IN) | payer BC, MEDICARE ==
[~2019-10-09] VITALS: Ht 170.2 cm; Wt 79.8 kg
[2019-10-09 09:37] LABS: COLLECTION METHOD CLEAN CATCH
[2019-10-09 09:45] LABS: MEAN CELL VOLUME 102 fl (80.0-100.0); MEAN CORPUSCULAR HEMOGLOBIN 35 pg (27.0-31.0); MEAN CORPUSCULAR HGB CONC 34 g/dl (33.0-37.0); MEAN PLATELET VOLUME 10.1 fl (7.4-10.4); PLATELET COUNT 76 K/mm3 (130-400); RED BLOOD COUNT 3.45 M/mm3 (4.20-5.60); REDCELL DISTRIBUTION WIDTH-CV 13.3 % (11.5-14.5)
[2019-10-09 09:47] LABS: PH 7 (5-8); SQUAMOUS EPITHELIAL None Seen /hpf; URINE APPEARANCE Clear; URINE BACTERIA None Seen /hpf; URINE BILIRUBIN Negative (NEGATIVE); URINE BLOOD Negative (NEGATIVE); URINE COLOR Yellow; URINE GLUCOSE Negative (NEGATIVE); URINE KETONE Negative (NEGATIVE); URINE LEUKOCYTE ESTERASE Negative (NEGATIVE); URINE NITRATE Negative (NEGATIVE); URINE PROTEIN(semi-quant) Negative (NEGATIVE); URINE UROBILINOGEN Negative (NEGATIVE)
[2019-10-09 09:50] LABS: HEMATOCRIT 35.2 % (42.0-52.0); INR 1.5 (0.8-3.0); PROTHROMBIN TIME 16.8 SECONDS (9.7-12.8)
[2019-10-09 09:54] LABS: ALBUMIN 3.7 gm/dL (3.5-5.0); BILIRUBIN,TOTAL 1.4 mg/dL (0.0-1.0); CALCIUM 8.8 mg/dL (8.4-10.2); CREATININE, serum 1.11 (0.66-1.25); POTASSIUM 4.7 mmol/L (3.4-5.0); TOTAL PROTEIN 6.5 gm/dL (6.4-8.2)
[2019-10-09 10:05] LABS: C-REACTIVE PROTEIN 16.8 mg/dL (0.0-0.9); TROPONIN-I 0.049 ng/mL (0.000-0.035)
[2019-10-09 10:39] LABS: BAND 8 % (0-10); EOSINOPHIL 4 % (0-4); NEUTROPHILS 67 % (42.0-75.2); NUCLEATED RED BLOOD CELL 4 (0-6); PLATELET ESTIMATE DECREASED (NORMAL)
[2019-10-09 10:41] LABS: LYMPHOCYTE 13 % (20.0-51.0)
[2019-10-09] MEDS ORDERED: NEURONTIN300 MG/CAP PO (11:44)
[2019-10-09] MEDS ORDERED: POMA1CAP PO (11:45)
[2019-10-09 14:02] VITALS: BP 104/65; PULSE 69; TEMP 99.1
--- NOTE | 2019-10-09 14:40 | NUR ---
PT ARRIVED FROM ED @1320. DENIES PAIN. AOX3. MILD TREMOR TO SALMA ARMS NOTED. TOLERATING LUNCH. IV TO RT WRIST INTACT. AWAITING ORDERS.TEMP 99.1
--- NOTE | 2019-10-09 16:03 | NUR ---
Vancomycin Initial Dosing Pharmacy Note Ordering provider: Jonny Amaro MD Indication/duration: rule out pna/immunocompromised LABS: SCr 1.11 Recommendation: Obtaining trough and will follow levels. Loading dose: 1.5 grams Maintenance dose: 1 gram every 12 hours Trough goal: 15-20 ug/mL
[2019-10-09 16:18] VITALS: BP 102/64; PULSE 66; TEMP 98.3
--- NOTE | 2019-10-09 16:39 | NUR ---
Warfarin Initial Dosing Pharmacy Note Ordering Provider: Jonny Amaro MD Indication: Atrial fibrillation LABS: INR 1.5 Recommendation: Will increase Warfarin to 3 mg po qHS. Pharmacy will continue to monitor and check daily INR levels. Home Regimen: Warfarin 2 mg po qHS
--- NOTE | 2019-10-09 19:10 | NUR ---
Received report from Cuca. Seen patient awake, lying in bed. With IV on right hand infusing NS at 75ml/hr. Denies pain. Tremors noted on his both hands. Afebrile. Urinal seen at bedside. Call light within reach. With pacemaker on left chest.
[2019-10-09 19:53] VITALS: BP 121/75; PULSE 64; TEMP 99.5
[2019-10-09 22:20] VITALS: TEMP 100.3
--- NOTE | 2019-10-09 22:20 | NUR ---
Patient is a bit warm. Checked temp 100.3F. Call Dr. Arroyo to ask for an order of Tylenol due to high temp. He ordered for Tylenol 650mg Q4. Will re-check patient's temperature again.
--- NOTE | 2019-10-09 23:20 | NUR ---
Received a call from Tele that patient is on AFIB. He is on SR with AVB at around 2000H. He has history of AFIB and on coumadin. Rate is controlled with HR of 66. Called Dr. Arroyo to update him. He said to call him back if the heart rate bacame 100bpm.
[2019-10-10] VITALS (8 sets, daily range): BP systolic 107–132; BP diastolic 65–85; PULSE 54–86; TEMP 98.7–102.5
--- NOTE | 2019-10-10 07:10 | NUR ---
PAtient had a febrile episode last night with 102.5F. Latest temp 98.7F. Denies any pain. Will endorse to day shift nurse.
[2019-10-10 09:30] LABS: MEAN CELL VOLUME 101 fl (80.0-100.0); MEAN CORPUSCULAR HGB CONC 34 g/dl (33.0-37.0); MEAN PLATELET VOLUME 10.2 fl (7.4-10.4); RED BLOOD COUNT 2.93 M/mm3 (4.20-5.60); REDCELL DISTRIBUTION WIDTH-CV 13.2 % (11.5-14.5)
[2019-10-10 09:35] LABS: HEMATOCRIT 29.5 % (42.0-52.0); MEAN CORPUSCULAR HEMOGLOBIN 34 pg (27.0-31.0); PLATELET COUNT 48 K/mm3 (130-400)
[2019-10-10 09:40] LABS: INR 1.5 (0.8-3.0); PROTHROMBIN TIME 16.5 SECONDS (9.7-12.8)
[2019-10-10 09:45] LABS: BILIRUBIN,TOTAL 1.2 mg/dL (0.0-1.0); CALCIUM 7.4 mg/dL (8.4-10.2); CREATININE, serum 0.92 (0.66-1.25); POTASSIUM 4.1 mmol/L (3.4-5.0); TOTAL PROTEIN 5.7 gm/dL (6.4-8.2)
[2019-10-10 10:45] LABS: BAND 14 % (0-10); EOSINOPHIL 6 % (0-4); LYMPHOCYTE 7 % (20.0-51.0); NEUTROPHILS 72 % (42.0-75.2); PLATELET ESTIMATE DECREASED (NORMAL)
--- NOTE | 2019-10-10 11:23 | NUR ---
Assessment completed, alert/oriented, vital signs stable/ still has low grade fever at 100.0 this morning, patient stated he feels "ok" just tired and fatigued, lungs CTA/ diminished bases, heart irregular/ A.fib on tele that is rate controlled and has a known Hx of A/fib, hospitalist was notified overnight of patient going into A.fib, Lab notified me that his TB testing was invalid yesterday as the test tubes were overfilled/ I had to redraw lab today, airborne P/c continue, WBC/PLT crticial and I have notified the hospitalist, denies other needs at this time
--- NOTE | 2019-10-10 14:11 | NUR ---
The patient is on airborne precautions for TB. VON attempted to contact the patient's room phone to discuss discharge plan. The patient did not answer. VON then contacted the patient's , Ramesh (ph#[phone]), to complete intake. The patient lives in [place] with his . Ramesh reports that the patient is independent with ADLs and has a walker. The patient's PCP is Dr. Apollo Weir and he receives his medications at [facility]. He reports no difficulties obtaining his meds. The patient does not have advanced directives in EMR, but Ramesh reports that he does have them completed and that she is the patient's DPOA-HC. She states that Dr. Weir's office should have a copy of the documents. VON attempted to contact Dr. Weir's office. VON left them a voicemail. Ramesh reports that she has no concerns with the patient returning back home with her upon discharge. She states that she has considered private duty services for someone to be with the patient, when she needs to leave the home. VON informed her of the private duty services through [facility], [facility], and [facility]. SW to continue to follow.
[2019-10-11 03:16] VITALS: BP 115/70; PULSE 51; TEMP 98.8
--- NOTE | 2019-10-11 07:10 | NUR ---
Report given to HEMANT Chow.
--- NOTE | 2019-10-11 07:15 | NUR ---
Bedside shift report received from HEMANT Silver. Pt sleeping on side, maintaining airborn precautions. Will continue to monitor.
[2019-10-11 07:37] VITALS: BP 127/75; PULSE 60; TEMP 98
[2019-10-11 07:45] LABS: MEAN CELL VOLUME 101 fl (80.0-100.0); MEAN CORPUSCULAR HGB CONC 35 g/dl (33.0-37.0); MEAN PLATELET VOLUME 10.4 fl (7.4-10.4); PLATELET COUNT 52 K/mm3 (130-400)
[2019-10-11 07:49] LABS: HEMATOCRIT 28.4 % (42.0-52.0); HEMOGLOBIN 9.8 g/dl (13.5-18.0); MEAN CORPUSCULAR HEMOGLOBIN 35 pg (27.0-31.0)
[2019-10-11 07:52] LABS: ALBUMIN 2.9 gm/dL (3.5-5.0); BILIRUBIN,TOTAL 0.9 mg/dL (0.0-1.0); CALCIUM 7.5 mg/dL (8.4-10.2); CREATININE, serum 0.89 (0.66-1.25); MAGNESIUM 1.9 mg/dL (1.6-2.3); POTASSIUM 3.5 mmol/L (3.4-5.0); TOTAL PROTEIN 5.5 gm/dL (6.4-8.2)
[2019-10-11 08:12] LABS: BAND 4 % (0-10); EOSINOPHIL 5 % (0-4); LYMPHOCYTE 31 % (20.0-51.0); MYELOCYTE 1 % (0-0); NEUTROPHILS 59 % (42.0-75.2); PLATELET ESTIMATE DECREASED (NORMAL)
--- NOTE | 2019-10-11 08:27 | NUR ---
Assessment charted. Pt in bed resting. IV to RH is infiltrated, alerted by quality control lab tech Josiah, stopped IV, elevated. RH is puffy but not painful and IV has been leaking for some time. New 22G started to LH. PT tolerated well. Denies any pain. Coughing intermittently, inspiratory wheezes to RLL auscultated, bases diminished, UL CTA. HR irregular. Resting in bed, states he is not real hungry but will try and eat. IVF to with antibiotics infusing. Will continue to monitor.
[2019-10-11 12:07] VITALS: BP 135/81; PULSE 72; TEMP 100
[2019-10-11 16:10] VITALS: BP 126/72; PULSE 72; TEMP 99.2
--- NOTE | 2019-10-11 18:56 | NUR ---
Pt has done well over shift, resting in bed, assisted with changing linens today and new gown. Denies pain. PRN tylenol givenx2 over shift. INT to . Report given to HEMANT Jolly outside room to reduce use of PPE. Pt aware, taking PO well.
[2019-10-11 20:30] VITALS: BP 116/70; PULSE 64; TEMP 100.4
--- NOTE | 2019-10-11 20:30 | NUR ---
Initial shift assessment done- denies pain at this time- denies SOB, Tele on- afib, temp 100.4 , pt using urinal , voiding jennifer colored urine, airborne Isolation - No requests except for sleeper closer to bedtime-
[2019-10-12 02:01] VITALS: BP 126/72; PULSE 68; TEMP 98.7
[2019-10-12 04:21] VITALS: BP 126/84; PULSE 72; TEMP 98.3
--- NOTE | 2019-10-12 05:12 | NUR ---
Has been sleeping fairly well -- continues on Airborne Isolation, highest temp during this shift was 100.4 at start of shift, other vitals stable, voiding large amounts yellow urine.
[2019-10-12 05:20] LABS: TB GOLD INTERPRETATION Negative (Negative)
--- NOTE | 2019-10-12 07:00 | NUR ---
Report received from HEMANT Jolly. pT awake and in bed, said goodmorning, denies needs, will continue to monitor.
--- NOTE | 2019-10-12 07:59 | NUR ---
Vancomycin Follow-up Pharmacy Note Current regimen: Vancomycin 1 gm IV q12h Vancomycin trough: 11.36 Adjustments: Will increase Vancomycin to 1.25 gm IV q12h. Pharmacy will continue to monitor and check a Vancomycin trough on 10/14/19.
[2019-10-12 08:14] LABS: MEAN CELL VOLUME 100 fl (80.0-100.0); MEAN CORPUSCULAR HGB CONC 34 g/dl (33.0-37.0); MEAN PLATELET VOLUME 10.6 fl (7.4-10.4); PLATELET COUNT 55 K/mm3 (130-400); RED BLOOD COUNT 2.85 M/mm3 (4.20-5.60); REDCELL DISTRIBUTION WIDTH-CV 12.9 % (11.5-14.5)
[2019-10-12 08:29] LABS: CALCIUM 7.8 mg/dL (8.4-10.2); CREATININE, serum 0.84 (0.66-1.25); POTASSIUM 3.3 mmol/L (3.4-5.0)
[2019-10-12 08:30] LABS: HEMATOCRIT 28.6 % (42.0-52.0); HEMOGLOBIN 9.8 g/dl (13.5-18.0); MEAN CORPUSCULAR HEMOGLOBIN 34 pg (27.0-31.0)
[2019-10-12 09:27] VITALS: BP 117/69; PULSE 63; TEMP 101.1
--- NOTE | 2019-10-12 10:05 | NUR ---
Assessment charted. Pt states he is doing well, fever is 101.1 notified Ly. Pt doing well with PO intake, very thirsty. Updated on results of TB test, pt is pleased. IV antibiotics to RH. Will continue to monitor.
[2019-10-12 10:43] LABS: BAND 12 % (0-10); EOSINOPHIL 4 % (0-4); LYMPHOCYTE 16 % (20.0-51.0); NEUTROPHILS 56 % (42.0-75.2)
[2019-10-12 10:44] LABS: PLATELET ESTIMATE DECREASED (NORMAL)
[2019-10-12 12:00] VITALS: BP 123/73; PULSE 64; TEMP 98.8
[2019-10-12 15:53] VITALS: BP 129/73; PULSE 70; TEMP 98.5
--- NOTE | 2019-10-12 18:09 | NUR ---
Pt has had good day. Resting off and on, taking PO well. No fevers since this am. Denies needs or pain, will give bedside shift report to nightshift nurse who will resume care.
[2019-10-12 19:09] VITALS: BP 139/79; PULSE 69; TEMP 99.1
--- NOTE | 2019-10-12 21:00 | NUR ---
Initial shift assessment done- Tele on afib, denies any chest pain or SOB, VSS, temp 99.1, states overall feels a little "off", "tired", pt feels this is from all the new meds that were started today. Voiding clear yellow urine. Will give Tylenol and Ambien tonight before bed per patients requests-
[2019-10-13] VITALS (8 sets, daily range): BP systolic 108–132; BP diastolic 61–86; PULSE 67–83; TEMP 98.3–100.2
--- NOTE | 2019-10-13 06:00 | NUR ---
Quiet night- highest temp was 99.1 during this shift, VSS, tele remains Afib rate controlled, on numerous antibiotics-tolerated well. Voiding large amounts clear yellow urine.
[2019-10-13 07:40] LABS: MEAN CELL VOLUME 100 fl (80.0-100.0); MEAN CORPUSCULAR HGB CONC 34 g/dl (33.0-37.0); MEAN PLATELET VOLUME 11.9 fl (7.4-10.4); PLATELET COUNT 53 K/mm3 (130-400); RED BLOOD COUNT 2.66 M/mm3 (4.20-5.60)
[2019-10-13 07:46] LABS: CALCIUM 8.3 mg/dL (8.4-10.2); CREATININE, serum 0.8 (0.66-1.25); POTASSIUM 3.3 mmol/L (3.4-5.0)
[2019-10-13 08:13] LABS: HEMATOCRIT 26.5 % (42.0-52.0); HEMOGLOBIN 9.1 g/dl (13.5-18.0); MEAN CORPUSCULAR HEMOGLOBIN 34 pg (27.0-31.0)
--- NOTE | 2019-10-13 08:45 | NUR ---
Patient laying in bed watching TV. A&Ox4, denies pain and discomfort. VSS telemetry on chest. IV CDI. Patient independent in room. No longer on airborne precautions. No further needs expressed from patient. Call light within reach
[2019-10-13 10:57] LABS: BAND 16 % (0-10); EOSINOPHIL 16 % (0-4); LYMPHOCYTE 40 % (20.0-51.0); NEUTROPHILS 24 % (42.0-75.2)
[2019-10-13 10:59] LABS: PLATELET ESTIMATE DECREASED (NORMAL)
--- NOTE | 2019-10-13 17:14 | NUR ---
Patient had an uneventful day. VSS. IV CDI. Independent in room. No reported loose BM's. Denies pain and discomfort. Had the door to his room left opened and called nursing staff if needing anything. Call light within reach
--- NOTE | 2019-10-13 19:48 | NUR ---
Resting in bed. Assessment complete. Bases dimished, upper lobes clear. Heart sounds normal. Bowels active x4. Pulses present throughout. Bilateral lower leg edema +1. INT left forearm without complications. Patient reporting diarrhea. Stool sample sent. Denies pain at this time. Denies needs. Call light in reach.
--- NOTE | 2019-10-13 19:48 | NUR ---
Resting in bed. Assessment complete. Lungs clear. Heart sounds normal. Bowels active x4. Pulses present throughout. Bilateral lower leg edema +1. INT left forearm without complications. Patient reporting diarrhea. Stool sample sent. Denies pain at this time. Denies needs. Call light in reach.
--- NOTE | 2019-10-13 21:39 | NUR ---
Patient requested MARLON dillon for sleep. Provided to patient. Denies other needs at this time. Call light in reach.
--- NOTE | 2019-10-13 21:44 | NUR ---
Patient cdiff positive per GI panel. Dr. Arroyo notified. Will add orders.
--- NOTE | 2019-10-13 22:39 | NUR ---
Patient given vanco oral. Temp 100.2. Provided with PRN tylenol.
[2019-10-14] VITALS (7 sets, daily range): BP systolic 106–127; BP diastolic 64–75; PULSE 57–114; TEMP 98.1–100.3
--- NOTE | 2019-10-14 00:09 | NUR ---
Resting in bed. Denies needs. Denies pain. Flagyl started at this time. Call light in reach.
--- NOTE | 2019-10-14 03:37 | NUR ---
Resting in bed. Denies needs. Denies pain. Call light in reach.
--- NOTE | 2019-10-14 06:35 | NUR ---
Patient had temp of 100.2 during night. Was given tylenol. Otherwise uneventful night. Resting in bed this AM. Call light in reach.
[2019-10-14 06:50] LABS: ALBUMIN 2.9 gm/dL (3.5-5.0); BILIRUBIN,TOTAL 0.8 mg/dL (0.0-1.0); CALCIUM 8.6 mg/dL (8.4-10.2); CREATININE, serum 0.91 (0.66-1.25); MAGNESIUM 1.8 mg/dL (1.6-2.3); PHOSPHOROUS 3.3 mg/dL (2.5-4.5); POTASSIUM 3.4 mmol/L (3.4-5.0); TOTAL PROTEIN 5.4 gm/dL (6.4-8.2)
[2019-10-14 06:57] LABS: PRE ALBUMIN 9.5 mg/dL (17.6-36.0)
[2019-10-14 07:00] LABS: MEAN CELL VOLUME 99 fl (80.0-100.0); MEAN CORPUSCULAR HGB CONC 34 g/dl (33.0-37.0); MEAN PLATELET VOLUME 10.7 fl (7.4-10.4); RED BLOOD COUNT 2.79 M/mm3 (4.20-5.60); REDCELL DISTRIBUTION WIDTH-CV 12.6 % (11.5-14.5)
[2019-10-14 07:13] LABS: HEMATOCRIT 27.5 % (42.0-52.0); HEMOGLOBIN 9.4 g/dl (13.5-18.0); MEAN CORPUSCULAR HEMOGLOBIN 34 pg (27.0-31.0); PLATELET COUNT 48 K/mm3 (130-400)
--- NOTE | 2019-10-14 07:21 | NUR ---
Report given to HEMANT Cohn
[2019-10-14 10:08] LABS: BAND 4 % (0-10); EOSINOPHIL 24 % (0-4); LYMPHOCYTE 60 % (20.0-51.0)
[2019-10-14 10:09] LABS: HYPOCHROMIA 1+; PLATELET ESTIMATE DECREASED (NORMAL)
[2019-10-14 13:37] LABS: CLOSTRIDIUM DIFF A/B NEG; CLOSTRIDIUM DIFF A/B INTERP NonToxigenic C.diff
--- NOTE | 2019-10-14 14:28 | NUR ---
PT is recommending home with family. Centralized Traffic Control Operator met with the patient to revisit the discharge plan. The patient plans to return home with his . He states his works from home and helps him. SW contacted the patient's , Ramesh to discuss the discharge plan. She states she has not received a phone call from a doctor nor nurse. She states that she received a phone call from another SW (Naya) and spoke to his nurse on the second day. VON collaborated the above information with the hospitalist.
--- NOTE | 2019-10-14 17:23 | NUR ---
Pt assessment completed and charted. Medications administered per MAY. Pt sitting in bed throughout day. Pt is A&O, independent in room. Pt on room air, breathing even and unlabored. LS cta. Heart RRR. Pulses strong bilaterally. No edema noted. Pt wore SCDs, removed mid afternoon. Pt had LFA INT IV, flushed well earlier in the day, became infiltrated. Site changed, 22g RFA, flushes w/o complications. Pt running temp of 100.3, received tylenol PRN. Will continue to monitor. No further complaints expressed. Call light within reach.
--- NOTE | 2019-10-14 21:00 | NUR ---
Resting in bed. Assessment complete. Right base crackles otherwise clear. Heart sound normal. Bowels active x4. Pulses present throughout. No edema noted. INT right forearm without complications. Left wrist bruising present. Patient diaphoretic temp 98.4. Reports recent temp but feeling better. Denies pain. Denies needs at this time. Call light in reach.
--- NOTE | 2019-10-14 21:30 | NUR ---
Provided with GAYEN santana per patient request. Denies other needs at this time. Call light in reach.
--- NOTE | 2019-10-14 23:00 | NUR ---
Dr. Aragon called for updates on patient. Updated regarding temp and diarrhea. No new orders at this time.
[2019-10-15 00:47] VITALS: BP 127/88; PULSE 65; TEMP 97.4
--- NOTE | 2019-10-15 01:50 | NUR ---
Resting in bed asleep. Call light in reach.
[2019-10-15 03:58] VITALS: BP 117/62; PULSE 50; TEMP 97.5
--- NOTE | 2019-10-15 06:24 | NUR ---
Patient had uneventful night. Resting in bed this AM. Call light in reach.
--- NOTE | 2019-10-15 06:30 | NUR ---
Vancomycin Initial Dosing Pharmacy Note Ordering provider: Jonny Amaro MD Indication/duration: PNA, 7 days LABS: SCr 0.91, CrCl~71, GFR 83 Recommendation: Will start Vancomycin 1.25 gm IV q12h. Pharmacy will continue to monitor and check a Vancomycin trough on 10/17/19. Loading dose: 1 gram Maintenance dose: 1.25 grams every 12 hours Trough goal: 15-20 ug/mL
[2019-10-15 07:01] LABS: MEAN CELL VOLUME 96 fl (80.0-100.0); MEAN CORPUSCULAR HGB CONC 35 g/dl (33.0-37.0); MEAN PLATELET VOLUME 10.7 fl (7.4-10.4); PLATELET COUNT 54 K/mm3 (130-400); RED BLOOD COUNT 2.79 M/mm3 (4.20-5.60); REDCELL DISTRIBUTION WIDTH-CV 12.2 % (11.5-14.5)
[2019-10-15 07:05] LABS: HEMATOCRIT 26.9 % (42.0-52.0); HEMOGLOBIN 9.4 g/dl (13.5-18.0); MEAN CORPUSCULAR HEMOGLOBIN 34 pg (27.0-31.0)
[2019-10-15 07:10] LABS: INR 1.4 (0.8-3.0)
--- NOTE | 2019-10-15 07:13 | NUR ---
Report given to HEMANT Conh
[2019-10-15 07:25] LABS: BILIRUBIN,TOTAL 0.8 mg/dL (0.0-1.0); CALCIUM 8.4 mg/dL (8.4-10.2); CREATININE, serum 0.76 (0.66-1.25); MAGNESIUM 1.9 mg/dL (1.6-2.3); TOTAL PROTEIN 5.5 gm/dL (6.4-8.2)
[2019-10-15 07:53] VITALS: BP 133/81; PULSE 57; TEMP 98.1
[2019-10-15 08:55] LABS: BAND 2 % (0-10); LYMPHOCYTE 74 % (20.0-51.0); NEUTROPHILS 4 % (42.0-75.2); PLATELET ESTIMATE DECREASED (NORMAL)
[2019-10-15 13:47] VITALS: BP 126/72; PULSE 71; TEMP 98
[2019-10-15 17:47] VITALS: BP 136/85; PULSE 64; TEMP 98.2
--- NOTE | 2019-10-15 18:11 | NUR ---
Pt assessment completed and charted. medications administered per mar, pt A&O, independent in room, on room air, breathing even and unlabored, denies SOB. Pt denies N/V, abdominal pain, dizziness, chest pain, or numbness and tingling. Pt has RFA IV that flushes w/o difficulty. Pt has some bruising to forearms from IV pokes. Pt denies BM for today. Good intake/output, denies pain. No needs expressed.
[2019-10-15 19:25] VITALS: BP 126/78; PULSE 77; TEMP 98.3
--- NOTE | 2019-10-15 20:00 | NUR ---
Patient is alert and oriented. Heart sounds are normal/regular. Left lung sounds are clear but right lung sounds have crackles throughout. Patient is afebrile and on RA. No edema is present. No new concerns.
[2019-10-16] VITALS: BP 121/79; PULSE 64; TEMP 97.6
[2019-10-16 04:00] VITALS: BP 116/63; PULSE 67; TEMP 97.9
[2019-10-16 07:07] LABS: MEAN CELL VOLUME 97 fl (80.0-100.0); MEAN CORPUSCULAR HGB CONC 35 g/dl (33.0-37.0); MEAN PLATELET VOLUME 11.7 fl (7.4-10.4); RED BLOOD COUNT 2.68 M/mm3 (4.20-5.60); REDCELL DISTRIBUTION WIDTH-CV 12.5 % (11.5-14.5)
[2019-10-16 07:12] LABS: CALCIUM 8.4 mg/dL (8.4-10.2); CREATININE, serum 0.81 (0.66-1.25); POTASSIUM 3.8 mmol/L (3.4-5.0)
[2019-10-16 07:14] LABS: HEMOGLOBIN 9.1 g/dl (13.5-18.0); MEAN CORPUSCULAR HEMOGLOBIN 34 pg (27.0-31.0)
[2019-10-16 07:15] LABS: PLATELET COUNT 43 K/mm3 (130-400)
[2019-10-16 07:37] VITALS: BP 127/84; PULSE 119; TEMP 97.7
[2019-10-16 08:14] LABS: BAND 7 % (0-10); EOSINOPHIL 3 % (0-4); NEUTROPHILS 10 % (42.0-75.2); PLATELET ESTIMATE DECREASED (NORMAL)
[2019-10-16 08:15] LABS: LYMPHOCYTE 73 % (20.0-51.0)
[2019-10-16 09:14] LABS: INR 1.2 (0.8-3.0); PROTHROMBIN TIME 13.6 SECONDS (9.7-12.8)
--- NOTE | 2019-10-16 10:22 | NUR ---
Assessment completed, alert/oriented, vital signs stable, denies pain or discomfort, reports getting good rest and feeling good this morning, lungs CTA/ diminished/ afebrile, denies SOA or dyspnea, heart RRR/ distal pulses, good urine output, wbc 1.1/ SQ Granix given, Vanco infusing, Hospitalist in room now to eval, potassium replacment per protocol, breakfast in room, patient denies needs
[2019-10-16 11:35] VITALS: BP 113/73; PULSE 72; TEMP 98.4
[2019-10-16 16:44] VITALS: BP 125/77; PULSE 66; TEMP 98
[2019-10-16 20:00] VITALS: BP 123/83; PULSE 69; TEMP 98.1
[2019-10-17] VITALS (18 sets, daily range): BP systolic 103–128; BP diastolic 54–80; PULSE 58–89; TEMP 97–98.5
--- NOTE | 2019-10-17 01:11 | NUR ---
Received report from HEMANT Pacheco. A/Ox4. Denies any pain or discomfort at this time. Has not a BM today. Meds administered as scheduled PRN ambiem administered as requested by pt. INT to RFA intact, flushed w/o complications, dressing CDI. Urinal and personal items at bedside table. Tele monitor in place, leads checked. Needs met. Pt understand NPO status at midnight for procedure in AM. Call light within reach.
[2019-10-17 05:54] LABS: CALCIUM 8.3 mg/dL (8.4-10.2); CREATININE, serum 0.87 (0.66-1.25); POTASSIUM 3.9 mmol/L (3.4-5.0)
[2019-10-17 05:59] LABS: HEMATOCRIT 26.4 % (42.0-52.0); HEMOGLOBIN 9.3 g/dl (13.5-18.0); MEAN CELL VOLUME 96 fl (80.0-100.0); MEAN CORPUSCULAR HEMOGLOBIN 34 pg (27.0-31.0); MEAN CORPUSCULAR HGB CONC 35 g/dl (33.0-37.0); MEAN PLATELET VOLUME 12.1 fl (7.4-10.4); RED BLOOD COUNT 2.74 M/mm3 (4.20-5.60); REDCELL DISTRIBUTION WIDTH-CV 12.5 % (11.5-14.5)
[2019-10-17 06:00] LABS: PLATELET COUNT 45 K/mm3 (130-400)
--- NOTE | 2019-10-17 06:31 | NUR ---
Platelet result 45. 1 unit platelet hung and transfusing at this time, verified with HEMANT Downing. Pt understands to notify this RN of any discomfort. Pt remained NPO since midnight.
[2019-10-17 06:33] LABS: BAND 22 % (0-10); EOSINOPHIL 3 % (0-4); NEUTROPHILS 21 % (42.0-75.2); PLATELET ESTIMATE DECREASED (NORMAL)
[2019-10-17 06:34] LABS: LYMPHOCYTE 42 % (20.0-51.0)
--- NOTE | 2019-10-17 07:28 | NUR ---
Report given to HEMANT Thurman.
--- NOTE | 2019-10-17 08:20 | NUR ---
PT AOX4. STANDBY AMBULATION 2/2 GAIT UNSTEADY WITH INITIAL STAND. DENIES PAIN. PLATELET INFUSION ENDED @ 0800 VS CHARTED. TAKEN FOR BRONCHOSCOPY WASH PROCEDURE @ 0815. IV TO RT WRIST INTACT.
--- NOTE | 2019-10-17 09:29 | NUR ---
PT RETURNED TO ROOM AROUND 0925. POST OP VITALS STARTED. STABLE. MODERATE OCC COUGH FROM PROCEDURE
--- NOTE | 2019-10-17 11:34 | NUR ---
Preload Supervisor attended clinical rounds with the team. The patient is still on contact precautions. Will contiue to monitor.
--- NOTE | 2019-10-17 20:00 | NUR ---
At time of assessment, patient is awake in bed watching TV. He is alert and oriented with no complaints of pain. Heart sounds are normal/regular, lungs are clear and no edema is present. Patient is afebrile. Patient requests PRN ambien for facilitation of sleep. No new concerns.
[2019-10-18] VITALS (7 sets, daily range): BP systolic 110–135; BP diastolic 69–80; PULSE 64–77; TEMP 97.4–98.6
--- NOTE | 2019-10-18 05:32 | NUR ---
Patient has had an uneventful and restful night. He has remained afebrile. Will continue to monitor.
[2019-10-18 07:53] LABS: CALCIUM 8.1 mg/dL (8.4-10.2); CREATININE, serum 0.8 (0.66-1.25); POTASSIUM 3.4 mmol/L (3.4-5.0)
[2019-10-18 07:55] LABS: MEAN CELL VOLUME 99 fl (80.0-100.0); MEAN CORPUSCULAR HGB CONC 34 g/dl (33.0-37.0); MEAN PLATELET VOLUME 11.4 fl (7.4-10.4); PLATELET COUNT 65 K/mm3 (130-400); REDCELL DISTRIBUTION WIDTH-CV 12.7 % (11.5-14.5)
[2019-10-18 08:02] LABS: HEMATOCRIT 24.7 % (42.0-52.0); HEMOGLOBIN 8.5 g/dl (13.5-18.0); MEAN CORPUSCULAR HEMOGLOBIN 34 pg (27.0-31.0)
[2019-10-18 09:42] LABS: BAND 34 % (0-10); EOSINOPHIL 1 % (0-4); LYMPHOCYTE 18 % (20.0-51.0); METAMYELOCYTE 3 % (0-0); NEUTROPHILS 41 % (42.0-75.2); PLATELET ESTIMATE DECREASED (NORMAL)
--- NOTE | 2019-10-18 09:47 | NUR ---
Assessment complete. Patient sitting up in bed, awake and alert at this time. States that he feels fine but it is still early in the day. Has no complaints at this time. IV site is CD&I, vancocin is currently running at 166 ml per hour, LR has been stopped for this. No complaints of pain or discomfort. No other needs expressed at this time. CAll light is in reach.
--- NOTE | 2019-10-18 17:52 | NUR ---
Patient has had an uneventful shift. He had minimal requests and no complaints of pain or discomfort. IV site is CD&I, LR currently running at 30 ml/hr. Potatssium was replaced per protocol. No other concerns. No other needs expressed. Call light is in reach.
--- NOTE | 2019-10-18 21:45 | NUR ---
Patient assessed at this time. Alert and oriented x 4, and able to make needs known. Denies having pain and discomfort. Patient had LR running at 30 ml/hr. Call placed to Natacha, and new order received to D/C fluids. When flushed, noted that site was leaking. New IV started above it to right forearm. Denies having SOB and dyspnea. LS CTA. Respirations even and unlabored. HRR. Capillary refill less than 3 seconds. Non-tenting skin turgor. No edema. Voices no questions, needs, or concerns at this time. Given PRN Ambien as requested. Resting in bed with call light within reach.
[2019-10-19 04:00] VITALS: BP 135/57; PULSE 67; TEMP 97.7
--- NOTE | 2019-10-19 05:50 | NUR ---
Patient has voiced no questions, needs, or concerns at this time. Resting in bed with call light within reach.
[2019-10-19 08:29] LABS: MEAN CELL VOLUME 99 fl (80.0-100.0); MEAN CORPUSCULAR HGB CONC 34 g/dl (33.0-37.0); MEAN PLATELET VOLUME 11.1 fl (7.4-10.4); PLATELET COUNT 84 K/mm3 (130-400); RED BLOOD COUNT 2.62 M/mm3 (4.20-5.60); REDCELL DISTRIBUTION WIDTH-CV 12.9 % (11.5-14.5)
[2019-10-19 08:30] LABS: HEMATOCRIT 25.8 % (42.0-52.0); HEMOGLOBIN 8.7 g/dl (13.5-18.0); MEAN CORPUSCULAR HEMOGLOBIN 33 pg (27.0-31.0)
[2019-10-19 08:42] LABS: CALCIUM 8.1 mg/dL (8.4-10.2); CREATININE, serum 0.76 (0.66-1.25); POTASSIUM 3.7 mmol/L (3.4-5.0)
[2019-10-19 08:48] VITALS: BP 139/80; PULSE 78; TEMP 97.7
[2019-10-19 09:56] LABS: BAND 8 % (0-10); LYMPHOCYTE 22 % (20.0-51.0); NEUTROPHILS 67 % (42.0-75.2); OVALOCYTES 1+; POLYCHROMASIA 1+
[2019-10-19 12:32] VITALS: BP 117/80; PULSE 69; TEMP 98.4
[2019-10-19] MEDS ORDERED: DOXYCYCLINE 10100 MG PO (13:39)
[2019-10-19 16:09] VITALS: BP 130/68; PULSE 70; TEMP 98
--- NOTE | 2019-10-19 16:29 | NUR ---
PT DISCHARGED TO HOME AND RECEIVED BY @ 2558. DENIES PAIN, N/V, SOB, CP OR PALPITATIONS. ON RA. DISCHARGE INSTRUCTIONS REVIEWED
== END 2019-10-19 16:10 | disposition home or self-care (01) | DRG 871 ==
LOC: COL.ER 08:27 → MEDICAL 10:17
PROVIDERS: Emergency Medicine; Family Medicine; Internal Medicine Pulmonary Disease; Physician Assistant; Student in an Organized Health Care Education/Training Program; ADMIT Internal Medicine
PROC: 0BJ08ZZ Inspection of Tracheobronchial Tree, Via Natural or Artificial Opening Endoscopic (ICD-10-PCS; principal; 2019-10-17 08:30)
DX: A41.9 Sepsis, unspecified organism (principal); J18.9 Pneumonia, unspecified organism; C90.00 Multiple myeloma not having achieved remission; I42.8 Other cardiomyopathies; D61.818 Other pancytopenia; E87.1 Hypo-osmolality and hyponatremia; E46 Unspecified protein-calorie malnutrition; I24.8 Other forms of acute ischemic heart disease; Z94.81 Bone marrow transplant status; R65.20 Severe sepsis without septic shock; I27.20 Pulmonary hypertension, unspecified; I48.91 Unspecified atrial fibrillation; F32.9 Major depressive disorder, single episode, unspecified; G62.9 Polyneuropathy, unspecified; G47.00 Insomnia, unspecified; N18.9 Chronic kidney disease, unspecified; E16.2 Hypoglycemia, unspecified; M81.0 Age-related osteoporosis without current pathological fracture; Z20.828 Contact with and (suspected) exposure to other viral communicable diseases; Z95.0 Presence of cardiac pacemaker; Z88.0 Allergy status to penicillin; Z79.01 Long term (current) use of anticoagulants
CPT/HCPCS: 99223-AI; 99232-AI; 99233-AI; 99239; J0692; J1447; J1450; J1956; J2704; J3370; J7030; J7050; J7120; J7512; P9037

== ENCOUNTER 2020-03-11 13:36 | Inpatient (IN) | payer BC ==
[~2020-03-11] VITALS: Ht 167.6 cm; Wt 82.0 kg
[~2020-03-11 13:36] MED LIST changes: +NEURONTIN300 MG/CAP PO; +POMA1CAP PO
[2020-03-11 15:11] LABS: COLLECTION METHOD CLEAN CATCH
[2020-03-11 15:24] LABS: MEAN CELL VOLUME 105 fl (80.0-100.0); MEAN CORPUSCULAR HGB CONC 33 g/dl (33.0-37.0); MEAN PLATELET VOLUME 10.2 fl (7.4-10.4); PH 6 (5-8); PLATELET COUNT 166 K/mm3 (130-400); RED BLOOD COUNT 2.49 M/mm3 (4.20-5.60); REDCELL DISTRIBUTION WIDTH-CV 16.4 % (11.5-14.5); SQUAMOUS EPITHELIAL 0-2 /hpf; URINE APPEARANCE Clear; URINE BACTERIA None Seen /hpf; URINE BILIRUBIN Negative (NEGATIVE); URINE BLOOD Negative (NEGATIVE); URINE COLOR Yellow; URINE GLUCOSE Negative (NEGATIVE); URINE KETONE Negative (NEGATIVE); URINE LEUKOCYTE ESTERASE Negative (NEGATIVE); URINE NITRATE Negative (NEGATIVE); URINE PROTEIN(semi-quant) Negative (NEGATIVE); URINE RBC 0-2 /hpf; URINE UROBILINOGEN Negative (NEGATIVE)
[2020-03-11 15:30] LABS: HEMATOCRIT 26.1 % (42.0-52.0); HEMOGLOBIN 8.6 g/dl (13.5-18.0); MEAN CORPUSCULAR HEMOGLOBIN 35 pg (27.0-31.0)
[2020-03-11 15:35] LABS: ALBUMIN 3.3 gm/dL (3.5-5.0); BILIRUBIN,TOTAL 0.6 mg/dL (0.0-1.0); C-REACTIVE PROTEIN 6.8 mg/dL (0.0-0.9); CALCIUM 8.6 mg/dL (8.4-10.2); CREATININE, serum 1.12 (0.66-1.25); POTASSIUM 4.3 mmol/L (3.4-5.0); TOTAL PROTEIN 5.6 gm/dL (6.4-8.2)
[2020-03-11 16:30] LABS: BAND 3 % (0-10); LYMPHOCYTE 34 % (20.0-51.0); NEUTROPHILS 52 % (42.0-75.2)
[2020-03-11 16:31] LABS: ANISOCYTOSIS 1+; HYPOCHROMIA 1+; PLATELET ESTIMATE NORMAL (NORMAL)
[2020-03-11 16:44] LABS: INR 1.4 (0.8-3.0); PROTHROMBIN TIME 15.8 SECONDS (9.7-12.8)
[2020-03-11] MEDS ORDERED: K-TAB20 PO (17:10)
[2020-03-11] MEDS ORDERED: ZOVIRAX400 MG PO (17:32)
[2020-03-11] MEDS ORDERED: CORTEF5 MG PO (17:32)
[2020-03-11] MEDS ORDERED: [UNRECOGNIZED DRUG - CODE] PO (17:33)
[2020-03-11 19:39] VITALS: BP 128/62; PULSE 78; TEMP 100
--- NOTE | 2020-03-11 20:00 | NUR ---
Came up from ER right around 190 moy-- admitted to room 306 at this time- pleasant, has temp 100.0-will give tylenol as ordered, has cellulitis to LLE- left leg red/warm, edematous-with small red sores. IV fluids of NS at 75cc/hr
[2020-03-11 20:18] VITALS: BP 128/64; PULSE 78; TEMP 100
[2020-03-12] VITALS (7 sets, daily range): BP systolic 106–154; BP diastolic 58–85; PULSE 62–79; TEMP 97.9–99.4
--- NOTE | 2020-03-12 00:58 | NUR ---
Talked with Xin GARCIA on the phone about all the orders for IV fluids from when pt was in ER-- statrted he should just have the NS at 75cc/hr at this time
--- NOTE | 2020-03-12 04:54 | NUR ---
Quiet night- continues with NS at 75cc/hr, highest temp 100.0
[2020-03-12 06:50] LABS: MEAN CELL VOLUME 107 fl (80.0-100.0); MEAN CORPUSCULAR HGB CONC 33 g/dl (33.0-37.0); MEAN PLATELET VOLUME 10.2 fl (7.4-10.4); PLATELET COUNT 124 K/mm3 (130-400); RED BLOOD COUNT 2.25 M/mm3 (4.20-5.60); REDCELL DISTRIBUTION WIDTH-CV 16.4 % (11.5-14.5)
[2020-03-12 06:54] LABS: CALCIUM 8.1 mg/dL (8.4-10.2); CREATININE, serum 0.93 (0.66-1.25); POTASSIUM 4.3 mmol/L (3.4-5.0)
[2020-03-12 07:04] LABS: INR 1.4 (0.8-3.0); PROTHROMBIN TIME 15.8 SECONDS (9.7-12.8)
[2020-03-12 07:29] LABS: HEMOGLOBIN 7.8 g/dl (13.5-18.0); MEAN CORPUSCULAR HEMOGLOBIN 35 pg (27.0-31.0)
[2020-03-12 07:58] LABS: BAND 13 % (0-10); EOSINOPHIL 7 % (0-4); LYMPHOCYTE 27 % (20.0-51.0); NEUTROPHILS 50 % (42.0-75.2); PLATELET ESTIMATE DECREASED (NORMAL); TEAR DROP CELLS 1+
--- NOTE | 2020-03-12 09:43 | NUR ---
Pt assessment completed and charted, medications administered per may. Pt A&O, independent in room, on 2L NC , satting 98-99%, put on room air. Pt denies dizziness, N/V/D, chest pain, SOB. Pt has hand tremors, stated its "his normal". LS diminished throughout, HRRR, pulses strong bilaterally. Pt has LLE edema 2+, some redness/dry/scattered sores. Pt states he has some tenderness to leg. RAC IV flushes well, IVF @ 75ml/hr running w/o issue. LWR IV painful to touch, will remove. Pt denies other needs at this time. Call light within reach.
--- NOTE | 2020-03-12 09:52 | NUR ---
Pt has been recieving Sarclisa (immunotherapy) at the oncology office, last recieved 02/26/2020. He has also been taking Pomolyst daily with the last dose taken 03/10. Pomolyst precautions which would have involved contact with drug administration or urine should have ended after 48 hours (8am) this morning.
--- NOTE | 2020-03-12 11:34 | NUR ---
Chaplain contreras for patient while standing outside of door.
--- NOTE | 2020-03-12 13:33 | NUR ---
ANC 882. Pt neutropenic and immunocompromised.
--- NOTE | 2020-03-12 14:08 | NUR ---
SW attempted assessment with , will need to call back. reports she is in a zoom meeting.
--- NOTE | 2020-03-12 14:10 | NUR ---
IVF dc'd, pt receiving abx per may. Pt bed alarm on, instructed to call for assistance or to use urinal placed at bedside. Pt very weak, shaky and noticeable tremors. Pt verbalized understanding.
--- NOTE | 2020-03-12 19:30 | NUR ---
Resting in bed. Assessment complete. Lungs clear. Heart sounds normal. Bowels active x4. Pulses present throughout. Right lower extremity edema +1. Left lower extremity edema +3 with erythema present. Denies pain. Denies needs. Call light in reach. INT right forearm without complications.
--- NOTE | 2020-03-12 23:19 | NUR ---
Patient moved from 305 to 307 for covid negative results. Xin MOORE aware and okay to move patient out of isolation. Patient INT right AC pulled out. Restarted in left AC at this time. Denies pain. Denies needs. Call light in reach.
--- NOTE | 2020-03-13 01:58 | NUR ---
Resting in bed asleep. Call light in reach.
[2020-03-13 03:26] VITALS: BP 122/64; PULSE 88; TEMP 98
--- NOTE | 2020-03-13 03:28 | NUR ---
Resting in bed. Denies needs. Call light in reach.
--- NOTE | 2020-03-13 05:58 | NUR ---
Patient had uneventful night. Resting in bed this AM. Call light in reach.
[2020-03-13 06:16] LABS: MEAN CELL VOLUME 106 fl (80.0-100.0); MEAN CORPUSCULAR HGB CONC 33 g/dl (33.0-37.0); PLATELET COUNT 140 K/mm3 (130-400); RED BLOOD COUNT 2.29 M/mm3 (4.20-5.60); REDCELL DISTRIBUTION WIDTH-CV 16.3 % (11.5-14.5)
[2020-03-13 06:19] LABS: HEMATOCRIT 24.3 % (42.0-52.0); MEAN CORPUSCULAR HEMOGLOBIN 35 pg (27.0-31.0)
[2020-03-13 06:22] LABS: INR 1.6 (0.8-3.0); PROTHROMBIN TIME 17.9 SECONDS (9.7-12.8)
[2020-03-13 06:24] LABS: CALCIUM 8.6 mg/dL (8.4-10.2); CREATININE, serum 1.04 (0.66-1.25); POTASSIUM 3.5 mmol/L (3.4-5.0)
--- NOTE | 2020-03-13 06:51 | NUR ---
Report given to HEMANT Thurman
[2020-03-13 07:15] LABS: BAND 12 % (0-10); BASOPHIL 1 % (0-2); EOSINOPHIL 11 % (0-4); LYMPHOCYTE 18 % (20.0-51.0); NEUTROPHILS 40 % (42.0-75.2)
[2020-03-13 07:21] LABS: ANISOCYTOSIS 1+; PLATELET ESTIMATE NORMAL (NORMAL)
[2020-03-13 07:22] LABS: OVALOCYTES 1+
[2020-03-13 07:28] VITALS: BP 114/70; PULSE 71; TEMP 99.1
--- NOTE | 2020-03-13 08:10 | NUR ---
Bedside shift report received. pt resting in bed and assisted into bathroom. very shaky. AOX4. upset about not being independent but agrees with care plan due to unsteady gait. denies pain. bed alarm on. call light within reach.
--- NOTE | 2020-03-13 08:34 | NUR ---
Soft Sugar Operator Head attempted to contact the patient's to complete intake, left message.
--- NOTE | 2020-03-13 09:52 | NUR ---
Morning meds given. PT AOX4. andria. standby assist inot bathroom. had a n episode of loose/liquid stools that he states is his norm. LLE edema 3+ pitting and tender with trace edema to rt leg. no excess warmth. has not had breakfast yet, states does not care for morning meal. denies appetite changes.
[2020-03-13 11:38] VITALS: BP 132/98; PULSE 79; TEMP 98.7
[2020-03-13] MEDS ORDERED: DOXYCYCLINE HY100 MG PO (11:59)
[2020-03-13] MEDS ORDERED: LASIX 40MG TABL40 MG PO (11:59)
[2020-03-13] MEDS ORDERED: OMNICEF 300MG300 MG PO (11:59)
[2020-03-13] MEDS ORDERED: COUMADIN 5MG5 MG/TAB PO (12:00)
--- NOTE | 2020-03-13 14:28 | NUR ---
Sand Molder met with the patient to complete intake. The patient lives in [place] with his , Ramesh. The patient uses a walker as needed and is independent with ADLs. The patient's PCP is Dr. Weir and patient receives medications from [facility]. The patient does not have advanced directives. The patient's Oncologist is Dr. Eng. The patient take a daily chemo pill and has appointments approximately once a month. The patient plans to return home at discharge. PT is recommending home with family assist. The patient's works from home and is available to assist the patient. The patient declined home health services. There are no additional needs.
[2020-03-13 16:10] VITALS: BP 141/98; PULSE 76; TEMP 98.5
--- NOTE | 2020-03-13 16:29 | NUR ---
IV dc'd after discharge order received in AM. PT states has a zoom meeting until afternoon thus will not be able to discharge until then. finaly picked up @ 1620 and escorted out via WC.
== END 2020-03-13 16:20 | disposition home or self-care (01) | DRG 872 ==
LOC: COL.ER 13:36 → SURG 16:32 → MEDICAL 16:32
PROVIDERS: Emergency Medicine; ADMIT Hospitalist
DX: A41.9 Sepsis, unspecified organism (principal); L03.116 Cellulitis of left lower limb; C90.00 Multiple myeloma not having achieved remission; Z94.81 Bone marrow transplant status; D61.818 Other pancytopenia; E87.1 Hypo-osmolality and hyponatremia; I42.8 Other cardiomyopathies; R65.20 Severe sepsis without septic shock; D53.9 Nutritional anemia, unspecified; D70.9 Neutropenia, unspecified; I48.91 Unspecified atrial fibrillation; F32.9 Major depressive disorder, single episode, unspecified; I27.20 Pulmonary hypertension, unspecified; N18.9 Chronic kidney disease, unspecified; G47.00 Insomnia, unspecified; Z20.828 Contact with and (suspected) exposure to other viral communicable diseases; G62.9 Polyneuropathy, unspecified; Z79.01 Long term (current) use of anticoagulants; Z88.0 Allergy status to penicillin; Z95.0 Presence of cardiac pacemaker
CPT/HCPCS: 99223-AI; 99232-AI; 99239; J0696; J1650; J1720; J3370; J7030; J7040; J7050

== ENCOUNTER 2020-04-25 12:50 | Emergency (ER) | payer BC ==
[~2020-04-25] VITALS: Ht 167.6 cm; Wt 80.0 kg
[~2020-04-25 12:50] MED LIST changes: +CORTEF5 MG PO; +DOXYCYCLINE HY100 MG PO; +[UNRECOGNIZED DRUG - CODE] PO
[2020-04-25 12:58] VITALS: TEMP 98.9
[2020-04-25 13:53] LABS: HEMOGLOBIN 10.9 g/dl (13.5-18.0); MEAN CELL VOLUME 106 fl (80.0-100.0); MEAN CORPUSCULAR HEMOGLOBIN 34 pg (27.0-31.0); MEAN CORPUSCULAR HGB CONC 32 g/dl (33.0-37.0); MEAN PLATELET VOLUME 10.5 fl (7.4-10.4); PLATELET COUNT 133 K/mm3 (130-400); REDCELL DISTRIBUTION WIDTH-CV 15.5 % (11.5-14.5)
[2020-04-25 14:00] LABS: INR 2.3 (0.8-3.0); PROTHROMBIN TIME 26.3 SECONDS (9.7-12.8)
[2020-04-25 14:03] LABS: ALBUMIN 3.5 gm/dL (3.5-5.0); BILIRUBIN,TOTAL 0.9 mg/dL (0.0-1.0); CALCIUM 9.2 mg/dL (8.4-10.2); CREATININE, serum 1.26 (0.66-1.25); POTASSIUM 4.1 mmol/L (3.4-5.0); TOTAL PROTEIN 5.6 gm/dL (6.4-8.2)
[2020-04-25] MEDS ORDERED: DOXYCYCLINE 10100 MG PO (14:11)
[2020-04-25 14:38] VITALS: BP 109/68; PULSE 61
[2020-04-25 14:40] LABS: BAND 1 % (0-10); LYMPHOCYTE 5 % (20.0-51.0); METAMYELOCYTE 1 % (0-0); MYELOCYTE 1 % (0-0); NEUTROPHILS 89 % (42.0-75.2)
[2020-04-25 14:41] LABS: ANISOCYTOSIS 1+; PLATELET ESTIMATE NORMAL (NORMAL)
== END 2020-04-25 14:38 | disposition home or self-care (01) ==
LOC: COL.ER 12:50
PROVIDERS: Family Medicine
DX: L03.116 Cellulitis of left lower limb (principal); A41.9 Sepsis, unspecified organism; I10 Essential (primary) hypertension; G47.00 Insomnia, unspecified; F32.9 Major depressive disorder, single episode, unspecified; I48.91 Unspecified atrial fibrillation; Z95.0 Presence of cardiac pacemaker; Z88.0 Allergy status to penicillin; Z79.01 Long term (current) use of anticoagulants
CPT/HCPCS: J0696

== ENCOUNTER 2020-05-17 12:37 | Emergency (ER) | payer BC ==
[2020-05-17 13:16] LABS: BASO # 0.1 (0.0-0.2); BASO % 2.1 % (0.0-2.0); EOS # 0.1 (0.0-0.7); EOS % 1.3 % (0-4.0); GRAN % 65.7 % (42.2-75.2); LYMPH # 0.7 (1.2-3.4); LYMPH % 11.1 % (20.0-51.0); MEAN CELL VOLUME 103 fl (80.0-100.0); MEAN CORPUSCULAR HGB CONC 32 g/dl (33.0-37.0); MEAN PLATELET VOLUME 9.8 fl (7.4-10.4); MONO # 1.2 (0.1-0.6); PLATELET COUNT 174 K/mm3 (130-400); RED BLOOD COUNT 2.33 M/mm3 (4.20-5.60); REDCELL DISTRIBUTION WIDTH-CV 15.2 % (11.5-14.5)
[2020-05-17 13:18] LABS: HEMATOCRIT 24.1 % (42.0-52.0); HEMOGLOBIN 7.6 g/dl (13.5-18.0); MEAN CORPUSCULAR HEMOGLOBIN 33 pg (27.0-31.0)
[2020-05-17 13:30] LABS: ALBUMIN 3.1 gm/dL (3.5-5.0); CALCIUM 8.4 mg/dL (8.4-10.2); CREATININE, serum 1.43 (0.66-1.25); POTASSIUM 4.5 mmol/L (3.4-5.0); TOTAL PROTEIN 5.5 gm/dL (6.4-8.2)
[2020-05-17 13:35] LABS: INR 1.7 (0.8-3.0); PROTHROMBIN TIME 19.1 SECONDS (9.7-12.8)
[2020-05-17 13:42] LABS: C-REACTIVE PROTEIN 25.1 mg/dL (0.0-0.9)
[2020-05-17 14:05] VITALS: TEMP 100.1
[2020-05-17] MEDS ORDERED: LOPRESSOR 225 MG/TAB PO (15:00)
[2020-05-17] MEDS ORDERED: POMA1CAP PO (15:01)
[2020-05-17 18:50] VITALS: BP 120/65; PULSE 81
== END 2020-05-17 19:00 | disposition short-term general hospital (02) ==
LOC: COL.ER 12:37
PROVIDERS: Nurse Practitioner Primary Care
DX: I13.0 Hypertensive heart and chronic kidney disease with heart failure and stage 1 through stage 4 chronic kidney disease, or unspecified chronic kidney disease (principal); F10.230 Alcohol dependence with withdrawal, uncomplicated; L03.116 Cellulitis of left lower limb; A41.9 Sepsis, unspecified organism; I48.91 Unspecified atrial fibrillation; F32.9 Major depressive disorder, single episode, unspecified; N18.9 Chronic kidney disease, unspecified; Z85.79 Personal history of other malignant neoplasms of lymphoid, hematopoietic and related tissues; Z79.01 Long term (current) use of anticoagulants; Z95.0 Presence of cardiac pacemaker; Z88.0 Allergy status to penicillin; Z20.822 Contact with and (suspected) exposure to COVID-19
CPT/HCPCS: J2060; J2270; J2405; J3370; J7030; J7050

== ENCOUNTER 2020-07-06 14:43 | Inpatient (IN) | payer BC, MEDICARE ==
[~2020-07-06] VITALS: Ht 167.6 cm; Wt 73.7 kg
[2020-07-06 15:37] LABS: BASO % 0.2 % (0.0-2.0); EOS # 0.1 (0.0-0.7); EOS % 1.7 % (0-4.0); GRAN # 3.7 (1.4-6.5); GRAN % 77.6 % (42.2-75.2); LYMPH # 0.6 (1.2-3.4); LYMPH % 12.5 % (20.0-51.0); MEAN CELL VOLUME 103 fl (80.0-100.0); MEAN CORPUSCULAR HGB CONC 31 g/dl (33.0-37.0); MEAN PLATELET VOLUME 11.1 fl (7.4-10.4); MONO # 0.4 (0.1-0.6); MONO % 7.6 % (1.7-9.3); PLATELET COUNT 211 K/mm3 (130-400); REDCELL DISTRIBUTION WIDTH-CV 21.2 % (11.5-14.5)
[2020-07-06 15:42] LABS: HEMATOCRIT 26.7 % (42.0-52.0); HEMOGLOBIN 8.3 g/dl (13.5-18.0); MEAN CORPUSCULAR HEMOGLOBIN 32 pg (27.0-31.0)
[2020-07-06 15:44] LABS: ALBUMIN 3.5 gm/dL (3.5-5.0); BILIRUBIN,TOTAL 0.7 mg/dL (0.0-1.0); CREATININE, serum 1.05 (0.66-1.25); MAGNESIUM 1.7 mg/dL (1.6-2.3); POTASSIUM 3.8 mmol/L (3.4-5.0); TOTAL PROTEIN 5.7 gm/dL (6.4-8.2)
[2020-07-06 16:03] LABS: INR 1.6 (0.8-3.0); PROTHROMBIN TIME 18.5 SECONDS (9.7-12.8)
[2020-07-06 16:35] LABS: COLLECTION METHOD CLEAN CATCH
[2020-07-06 16:50] LABS: SQUAMOUS EPITHELIAL 0-2 /hpf; URINE BACTERIA None Seen /hpf; URINE RBC 0-2 /hpf
[2020-07-06 16:55] LABS: PH 8 (5-8); URINE APPEARANCE Clear; URINE BILIRUBIN Negative (NEGATIVE); URINE BLOOD Negative (NEGATIVE); URINE COLOR Straw; URINE GLUCOSE Negative (NEGATIVE); URINE KETONE Negative (NEGATIVE); URINE LEUKOCYTE ESTERASE Negative (NEGATIVE); URINE NITRATE Negative (NEGATIVE); URINE PROTEIN(semi-quant) Negative (NEGATIVE); URINE UROBILINOGEN Negative (NEGATIVE)
[2020-07-06 20:00] VITALS: BP 145/85; PULSE 82; TEMP 98.6
--- NOTE | 2020-07-06 20:00 | NUR ---
To room 316 via stretcher. Oriented to room/policy. Admission assessment complete. VS stable. A&Ox3-drowsy. Denies nausea/shortness of breath. Rating pain 1/10 to back-described as ache-continuous. Denies need for intervention. Heparin@14.5ml/hr-infusing to right AC 20g without difficulty. Plan of care discussed to include HS meds/heparin drip/lab draws/need for stool specimen. Verbalizes understanding/denies questions/concerns. Attempt made to complete med rec but unable to recall meds/doses. Denies current needs. Call light in reach. Will monitor.
[2020-07-06] MEDS ORDERED: NEURONTIN300 MG/CAP PO (22:41)
[2020-07-06] MEDS ORDERED: NATURE'S BLEND100 M2 PO (22:42)
--- NOTE | 2020-07-06 22:45 | NUR ---
Med rec completed with spouse per patient request.
[2020-07-06] MEDS ORDERED: TOPROL XL 25MG25 MG PO (22:59)
[2020-07-06] MEDS ORDERED: LASIX 40MG TABL40 MG PO (23:02)
--- NOTE | 2020-07-06 23:45 | NUR ---
Heparin drip order clairifed with BARRERA Lucero. Heparin rate decreased to 13.5ml/hr at this time with two nurse verification. Orders placed for HepXa/PTT lab draw at 0030.
[2020-07-07] VITALS (7 sets, daily range): BP systolic 122–139; BP diastolic 78–90; PULSE 64–84; TEMP 98.6–99.2
[2020-07-07] MEDS ORDERED: CORTEF5 MG PO (00:22)
--- NOTE | 2020-07-07 01:20 | NUR ---
Critical HepXa called to BARREAR Lucero. Per protocol heparin stopped. WIll redraw labs in Q2H.
[2020-07-07 01:46] LABS: PARTIAL THROMBOPLASTIN TIME > 400.0 SECONDS (26.0-37.0)
--- NOTE | 2020-07-07 01:48 | NUR ---
BARRERA Lucero notified of critical lab-PTT >400. No new orders received-continue heparin protocol. Will order labs for 0320 per protocol.
[2020-07-07 01:50] LABS: CLOSTRIDIUM DIFF A/B NEG; CLOSTRIDIUM DIFF A/B INTERP No C.diff present
[2020-07-07 03:53] LABS: MEAN CELL VOLUME 102 fl (80.0-100.0); MEAN CORPUSCULAR HGB CONC 31 g/dl (33.0-37.0); MEAN PLATELET VOLUME 10.9 fl (7.4-10.4); PLATELET COUNT 122 K/mm3 (130-400); RED BLOOD COUNT 2.36 M/mm3 (4.20-5.60); REDCELL DISTRIBUTION WIDTH-CV 21.2 % (11.5-14.5)
[2020-07-07 03:58] LABS: PARTIAL THROMBOPLASTIN TIME 27.6 SECONDS (26.0-37.0)
[2020-07-07 04:00] LABS: CALCIUM 8.3 mg/dL (8.4-10.2); CREATININE, serum 0.98 (0.66-1.25); POTASSIUM 3.3 mmol/L (3.4-5.0)
[2020-07-07 04:10] LABS: HEMOGLOBIN 7.5 g/dl (13.5-18.0); MEAN CORPUSCULAR HEMOGLOBIN 32 pg (27.0-31.0)
--- NOTE | 2020-07-07 04:10 | NUR ---
HepXa results back-0.19. Heparin restarted at this time at previous rate of 13.5ml/hr. Will reorder HepXa for 409.
[2020-07-07 04:24] LABS: BAND 4 % (0-10); LYMPHOCYTE 13 % (20.0-51.0); NEUTROPHILS 78 % (42.0-75.2); PLATELET ESTIMATE DECREASED (NORMAL)
[2020-07-07 04:25] LABS: ANISOCYTOSIS 2+; SCHISTOCYTES 1+
--- NOTE | 2020-07-07 05:41 | NUR ---
BARRERA Lucero notified of potassium level of 3.3 this am. New orders received to initiate K protocol.
[2020-07-07 07:16] LABS: INR 1.7 (0.8-3.0); PROTHROMBIN TIME 18.9 SECONDS (9.7-12.8)
--- NOTE | 2020-07-07 08:40 | NUR ---
PT PLEASANT, AOX4, PT DENIES PAIN BUT THEN REPORTS CHRONIC BACK PAIN WITH MOVEMENT. PT REPORTS BEING VERY TIRED AND NOT HAVING MUCH ENERGY TO WORK WITH THERAPY IN THE PAST. PT TOOK PILLS WITH WATER, POTASSIUM REPLACED. NO OTHER NEEDS AT THIS TIME. PT ASSISTED TO BATHROOM WITH GAIT BELT, PT REACHING FOR FURNITURE TO HOLD ON TO, REPORTS SOMETIMES USING WALKER AT HOME.
--- NOTE | 2020-07-07 10:31 | NUR ---
Met with patient in his room alone to talk about his situation and goals of care. He replies very simply that he wants to be at home and comfortable and take things at his own pace. He denies knowing if he has a DPOA-HC and refers me to his . I did talk with him about various goals of care--aggressive, supportive, and comfort. He really did not give me an answer as to what his goal is. I then called his , Ramesh Best. She reports that he does have a DPOA-HC and Dr Weir's office should have it. I did contact them and asked for a copy to be faxed to us. His reports that he will allow anyone to do almost anything to him for health care without objection but when he has to initiate or follow through on his own--he won't. He "can put on a good show" for those around him but then doesn't follow through. He is very neglectful of self care--brushing his teeth, putting on underwear/depends, bathing, washing his hands, etc. Ramesh is needing a break and more support to continue in her caregiving role. Heber sees nothing wrong with the situation. The couple has no children. Last dose of Sarclisa was in 05/17. reports that he has not been taking his pomalyst for about a month. Also reports that he was hospitalized in 05/17 for ETOH withdrawal. Will see what PT/OT say about his function and explore possible rehab vs hospice services.
--- NOTE | 2020-07-07 12:44 | NUR ---
First visit from the ebd special education teacher. No needs right now.
--- NOTE | 2020-07-07 13:45 | NUR ---
I talked with patient and his at bedside. Pt did get up and walk for a short distance in the roach with PT and did work briefly with OT. He says he gets short of breath when he walks so he has to stop. He initially told us he had been taking his po pomalidomide with last dose on June 28 but just now he told me it had been about a month since he had taken it. Last refill was for 21 tablets on 05/17/20. He initially told me that he didn't need therapy because he had been through it before and knew what to do but when I asked him if he actually did those exercises on his own he replied no. 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 His suggested going to [facility] for some rehab so that they can then manage his care better at home. He reports that he will think about it. His mother had told him that he needed to eat better so he could get stronger and his response was that he didn't need to get stronger. He is very much struggling with his life limiting illness vs his desire to live life as he would like. I left my card for his and encouraged them to talk about options available to them including rehab vs hospice. I will follow up tomorrow. He is aware that therapy is recommending SNF vs home health.
--- NOTE | 2020-07-07 15:57 | NUR ---
Railroad Crossing Protection Maintainer met with patient to discuss discharge planning. Patient was just discharged from [facility] about a week ago. Patient was discharged home with [facility] services. Patient lives in [place] with his , Ramesh (ph#[phone]) [address] sees Dr. Weir for primary care. Patient sees Dr. Mccollum, Oncologist and states he is currently supposed to be on chemotherapy, however it is held right now due to him being in the hospital. Patient obtains medications from [facility] with no difficulties and uses a walker for ambulation. Patient states he normally is mostly independent with ADLS however needs assistance from his with bathing. Patient had a palliative consult with Tammy Cobb RN who contacted Dr. Weir's office to obtain a copy of DPOA-HC. See palliative note for further detail. SW reviewed PT/OT recommendation for Home Health vs Post Acute Rehab. Patient states he is unsure of what he wants to do at this time. Patient states he may want to go home to "recover" for a few days before going anywhere for rehab. Patient is agreeable to have referrals sent to [facility] and [facility]. Patient states his is interested in him going to [facility] and also that he's been to [facility] before. Patient will continue to consider the options. VON contacted Pretty at [facility] and faxed referral then SW contacted Orly [facility] Director to give referral. SW contacted Dr. Mccollum's office and left a message for the RN to discuss discharge planning. VON then contacted Shauna at [facility] and faxed updates. Discharge Plan: Home Health vs Post Acute Rehab. Referrals out to [facility] and [facility]. Patient still considering options.
--- NOTE | 2020-07-07 17:25 | NUR ---
PT REPORTS NOT HAVING DIARRHEA SINCE IMODIUM GIVEN IN AM. PT HAS REFUSED BREAKFAST, LUNCH, AND DINNER. PT REPORTS NOT HAVING AN APPETITE. PT DENIES PAIN BUT SAYS HE HAS CHRONIC BACK ISSUES AND HAS DISCOMFORT WHEN HE SITS UP. PT BACK AND FORTH FROM CHAIR AND BED TODAY. AMBULATES WITH WALKER AND GAIT BELT. PT AOX4, AT BEDSIDE MOST OF SHIFT, NO OTHER NEEDS.
--- NOTE | 2020-07-07 20:00 | NUR ---
Assessment complete. Patient is alert and oriented with no complaints of pain. Heart sounds are normal/regular, lungs are clear with fine crackles in bases; Will notify physician regarding IV fluids. Patient does not complain of SOA. LLE is slighty edematous, red, and scaly from cellulitis; patient has no complaints of pain in this area. An incision from 1 week ago is noted; edges well approximated with stitches; patient states a skin cancer was removed. His left eye is bloodshot; Pupil is reactive and patient has no complaints; He states he does not recall scratching or hitting his eye on anything. Will continue to monitor.
[2020-07-08 04:45] VITALS: BP 127/85; PULSE 67; TEMP 98.6
[2020-07-08 07:27] VITALS: BP 118/70; PULSE 71; TEMP 99
[2020-07-08 07:29] LABS: MEAN CELL VOLUME 102 fl (80.0-100.0); MEAN CORPUSCULAR HGB CONC 32 g/dl (33.0-37.0); MEAN PLATELET VOLUME 9.8 fl (7.4-10.4); PLATELET COUNT 166 K/mm3 (130-400); RED BLOOD COUNT 2.48 M/mm3 (4.20-5.60); REDCELL DISTRIBUTION WIDTH-CV 21.2 % (11.5-14.5)
[2020-07-08 07:31] LABS: HEMATOCRIT 25.3 % (42.0-52.0); MEAN CORPUSCULAR HEMOGLOBIN 32 pg (27.0-31.0)
[2020-07-08 07:32] LABS: INR 1.7 (0.8-3.0); PROTHROMBIN TIME 18.6 SECONDS (9.7-12.8)
--- NOTE | 2020-07-08 09:04 | NUR ---
PT PLEASANT, AOX4, LLE PINK WITH SCALY/FLAKY SKIN, SCAB TO L HEEL. MEDICATIONS GIVEN, FRESH WATER AND GATORADE BROUGHT IN FOR PT. PT GRIMACED WHEN SITTING UP. PT DENIES DIARRHEA OVERNIGHT AND NO EPISODES SO FAR THIS AM. CALL LIGHT AND PHONE AT BEDSIDE. NO OTHER NEEDS AT THIS TIME.
--- NOTE | 2020-07-08 09:17 | NUR ---
SW was notified by clinical social work therapist, Jamee, that Lizz at Dr. Mccollum's office returned her call. Lizz reports that Dr. Mccollum is okay with holding off for chemo right now for the patient to go to rehab.
[2020-07-08 12:02] VITALS: BP 136/93; PULSE 76; TEMP 98.9
--- NOTE | 2020-07-08 12:03 | NUR ---
The patient's PA notified SW that she has spoken to the patient and he is agreeable to rehab and that he may be able to d/c tomorrow. Pretty, at [facility], reports that the patient's [employer] may authorize for SNF. SW contacted and updated the patient's , Ramesh. Ramesh is supportive of SNF. SW to continue to follow.
--- NOTE | 2020-07-08 13:22 | NUR ---
I met with patient at bedside this afternoon. Ramesh is in [place] with a beloved relative shopping today and relaxing. He reports that he has worked with therapy but gets tired easily. He is planning on going to [facility] for some rehab although "would prefer to have time to go home and rest first". He retired about three years ago because he recognized that his mental status was getting worse and it was time. he has not gotten to do the things he would have liked in his snf. He reports that he mainly watches TV at home. He did watch the [employer] and talked about the event. He is very clear that when it is his time to go he would like to be at home--not sure with hospice--but with support from the medical world. When I asked him what he enjoyed doing, he really couldn't give me an answer. We did talk about code status and he reported that he would like for them to try to bring him back "but if it isn't working--then just let me go." Support provided.
--- NOTE | 2020-07-08 14:41 | NUR ---
Pretty, at [facility], reports that the patient's [employer] would cover 30 days at [facility], but they would require a one time $175.00 case management fee to the patient. Pretty reports that the case management social worker, Mariana, with [facility] will probably try and call the patient. [facility] has to hear from the patient that he would approve this. VON met with the patient to update on the above. The patient reports that he has not heard from [facility] yet, but that he would be okay with paying the $175.00 case management fee.
[2020-07-08 16:09] VITALS: BP 137/91; PULSE 76; TEMP 99
--- NOTE | 2020-07-08 19:04 | NUR ---
PT ATE GRAPES, DRINKING BETTER THAN YESTERDAY, APPEARS DEPRESSED ABOUT DISCHARGE TO FACILITY, DENIES PAIN OTHER THAN WITH MOVEMENT, UNEVENTFUL SHIFT, FLUIDS DC'D.
[2020-07-08 19:47] VITALS: BP 121/76; PULSE 87; TEMP 99.3
--- NOTE | 2020-07-08 20:00 | NUR ---
Assessment complete. Patient is alert and oriented with a flat affect. He has no complaints of pain. Lungs are clear with diminished bases and patient is breathing well on RA. No edema is noted. Hand art dealer equal, heart sounds normal/regular. No new concerns, call light in reach.
[2020-07-08 23:48] VITALS: BP 130/81; PULSE 75; TEMP 98.8
[2020-07-09 03:37] VITALS: BP 121/84; PULSE 69; TEMP 97.3
[2020-07-09 03:39] VITALS: BP 91/63; PULSE 63; TEMP 98.6
[2020-07-09 07:37] VITALS: BP 137/98; PULSE 90; TEMP 97.9
[2020-07-09 08:34] LABS: INR 1.9 (0.8-3.0); PROTHROMBIN TIME 20.8 SECONDS (9.7-12.8)
[2020-07-09 08:43] LABS: BASO % 0.4 % (0.0-2.0); EOS # 0.1 (0.0-0.7); EOS % 2.9 % (0-4.0); GRAN # 2.8 (1.4-6.5); GRAN % 61.4 % (42.2-75.2); LYMPH # 1.1 (1.2-3.4); LYMPH % 23.8 % (20.0-51.0); MEAN CELL VOLUME 101 fl (80.0-100.0); MEAN CORPUSCULAR HGB CONC 31 g/dl (33.0-37.0); MEAN PLATELET VOLUME 10.5 fl (7.4-10.4); MONO # 0.5 (0.1-0.6); MONO % 11.1 % (1.7-9.3); PLATELET COUNT 192 K/mm3 (130-400); RED BLOOD COUNT 3.02 M/mm3 (4.20-5.60); REDCELL DISTRIBUTION WIDTH-CV 20.7 % (11.5-14.5)
[2020-07-09 08:44] LABS: HEMATOCRIT 30.6 % (42.0-52.0); HEMOGLOBIN 9.6 g/dl (13.5-18.0); MEAN CORPUSCULAR HEMOGLOBIN 32 pg (27.0-31.0)
[2020-07-09] MEDS ORDERED: COUMADIN4 MG PO (08:46)
[2020-07-09] MEDS ORDERED: TYLENOL 325MG325 MG PO (08:47)
[2020-07-09 08:48] LABS: CALCIUM 9.4 mg/dL (8.4-10.2); CREATININE, serum 1.11 (0.66-1.25); POTASSIUM 4.2 mmol/L (3.4-5.0)
[2020-07-09] MEDS ORDERED: ANTI-DIARRHEAL2 MG PO (08:48)
--- NOTE | 2020-07-09 08:48 | NUR ---
The bs spring encaser, Brianna, left VON a message to try and get in touch with the patient. VON contacted Brianna back and connected her to the patient.
[2020-07-09] MEDS ORDERED: ULTRAM 50MG TAB50 MG PO (08:49)
--- NOTE | 2020-07-09 09:58 | NUR ---
Pt assessment completed and charted, medications administered per may. Pt A&O, laying in bed, denies dizziness, N/V/D, chest pain, SOB. Pt on room air, breathing is even and unlabored. LS cta, HRRR. RAC INT IV flushes w/o issues. No edema noted. BS active x4. Pt denies further needs at this time, anticipating DC this afternoon to SNF.
[2020-07-09 11:40] VITALS: BP 127/79; PULSE 68; TEMP 98.3
--- NOTE | 2020-07-09 12:30 | NUR ---
Pt doing well at this time. Reports that he is going to look over the menu to order some lunch. No pain complaints at this time, leaving soon. Will continue to monitor
--- NOTE | 2020-07-09 13:23 | NUR ---
The patient's left SW his DPOA-HC. SW placed a copy of the DPOA-HC in the patient's chart and returned the original to the patient. The patient's DPOA-HC is his .
--- NOTE | 2020-07-09 14:00 | NUR ---
Pt continues to do well, awaiting to see if he will be going to [facility]. Pt denies any needs
--- NOTE | 2020-07-09 14:24 | NUR ---
Pretty, at [facility], reports that they received auth from [facility] and are able to accept the patient. SW updated the clinical team and the patient. The patient is to discharge today, 07/09, to [facility] for a skilled stay. Transportation was scheduled at 1530, via [facility]. VON informed the patient, his RN, and the patient's over the phone. They were all agreeable to the time. VON also presented and read the IM form outloud to the patient. The patient verbalized understanding and gave VON approval to sign the form on his behalf. SW provided him with a copy. No additional needs at this time.
--- NOTE | 2020-07-09 15:45 | NUR ---
Pt escorted out via [facility] transportation. INT in right AC removed. Pt back with him and left with him. Report called to [facility]
[2020-07-09 15:47] VITALS: BP 127/79; PULSE 68; TEMP 98.3
== END 2020-07-09 15:49 | DRG 391 ==
LOC: COL.ER 14:43 → MEDICAL 18:13
PROVIDERS: Emergency Medicine; Physician Assistant; Student in an Organized Health Care Education/Training Program; ADMIT Internal Medicine
DX: K52.9 Noninfective gastroenteritis and colitis, unspecified (principal); D61.810 Antineoplastic chemotherapy induced pancytopenia; C90.00 Multiple myeloma not having achieved remission; I42.8 Other cardiomyopathies; I82.521 Chronic embolism and thrombosis of right iliac vein; R62.7 Adult failure to thrive; I48.91 Unspecified atrial fibrillation; F32.9 Major depressive disorder, single episode, unspecified; I27.20 Pulmonary hypertension, unspecified; N18.9 Chronic kidney disease, unspecified; D53.9 Nutritional anemia, unspecified; G47.00 Insomnia, unspecified; R79.1 Abnormal coagulation profile; T45.1X5A Adverse effect of antineoplastic and immunosuppressive drugs, initial encounter; G25.0 Essential tremor; G62.9 Polyneuropathy, unspecified; Z95.0 Presence of cardiac pacemaker; Z88.0 Allergy status to penicillin; Z20.822 Contact with and (suspected) exposure to COVID-19; Z79.01 Long term (current) use of anticoagulants
CPT/HCPCS: 99223-AI; 99231-AI; 99233-AI; 99239; J1644; J3475; J7030; Q9967

== ENCOUNTER 2020-09-07 09:08 | Emergency (ER) | payer BC ==
[~2020-09-07] VITALS: Ht 167.6 cm; Wt 79.1 kg
[~2020-09-07 09:08] MED LIST changes: +ANTI-DIARRHEAL2 MG PO; +COUMADIN4 MG PO; +NATURE'S BLEND100 M2 PO
[2020-09-07 09:36] VITALS: TEMP 98
[2020-09-07 12:15] VITALS: BP 132/93; PULSE 66
== END 2020-09-07 12:15 | disposition home or self-care (01) ==
LOC: COL.ER 09:08
DX: S52.132A Displaced fracture of neck of left radius, initial encounter for closed fracture (principal); C90.00 Multiple myeloma not having achieved remission; I12.9 Hypertensive chronic kidney disease with stage 1 through stage 4 chronic kidney disease, or unspecified chronic kidney disease; N18.9 Chronic kidney disease, unspecified; F32.9 Major depressive disorder, single episode, unspecified; I27.20 Pulmonary hypertension, unspecified; I48.91 Unspecified atrial fibrillation; Z79.01 Long term (current) use of anticoagulants; X50.1XXA Overexertion from prolonged static or awkward postures, initial encounter

== ENCOUNTER 2021-01-30 10:21 | Emergency (ER) | payer BC ==
[~2021-01-30] VITALS: Ht 167.6 cm; Wt 78.2 kg
[2021-01-30 10:25] VITALS: TEMP 98.5
[2021-01-30 10:47] LABS: HEMOGLOBIN 10.4 g/dl (13.5-18.0); MEAN CELL VOLUME 102 fl (80.0-100.0); MEAN CORPUSCULAR HEMOGLOBIN 33 pg (27.0-31.0); MEAN CORPUSCULAR HGB CONC 33 g/dl (33.0-37.0); PLATELET COUNT 179 K/mm3 (130-400); RED BLOOD COUNT 3.13 M/mm3 (4.20-5.60); REDCELL DISTRIBUTION WIDTH-CV 21.3 % (11.5-14.5)
[2021-01-30 10:48] LABS: HEMATOCRIT 31.8 % (42.0-52.0)
[2021-01-30 10:50] LABS: INR 1.6 (0.8-3.0); PROTHROMBIN TIME 17.4 SECONDS (9.7-12.8)
[2021-01-30 11:00] LABS: ANISOCYTOSIS 2+; BAND 20 % (0-10); EOSINOPHIL 2 % (0-4); LYMPHOCYTE 19 % (20.0-51.0); METAMYELOCYTE 4 % (0-0); NEUTROPHILS 50 % (42.0-75.2); PLATELET ESTIMATE NORMAL (NORMAL)
[2021-01-30 11:02] LABS: ALBUMIN 3.1 gm/dL (3.4-4.8); BILIRUBIN,TOTAL 0.5 mg/dL (0.2-1.2); C-REACTIVE PROTEIN 0.53 mg/dL (0.00-0.50); CALCIUM 8.6 mg/dL (8.4-10.2); CREATININE, serum 1.21 mg/dL (0.72-1.25); POTASSIUM 4.1 mmol/L (3.5-4.5); TOTAL PROTEIN 5.5 gm/dL (6.2-8.1)
[2021-01-30 12:36] VITALS: BP 112/69; PULSE 79
== END 2021-01-30 12:50 | disposition home or self-care (01) ==
LOC: COL.ER 10:21
PROVIDERS: Family Medicine
DX: C90.00 Multiple myeloma not having achieved remission (principal); G45.9 Transient cerebral ischemic attack, unspecified; I10 Essential (primary) hypertension; I48.91 Unspecified atrial fibrillation; Z79.899 Other long term (current) drug therapy; Z79.01 Long term (current) use of anticoagulants
CPT/HCPCS: Q9967

== ENCOUNTER 2021-02-23 11:42 | Inpatient (IN) | payer BC, MEDICARE ==
[~2021-02-23] VITALS: Ht 167.6 cm; Wt 84.5 kg
[2021-02-23 12:59] LABS: MEAN CELL VOLUME 103 fl (80.0-100.0); MEAN CORPUSCULAR HGB CONC 34 g/dl (33.0-37.0); MEAN PLATELET VOLUME 10.5 fl (7.4-10.4); PLATELET COUNT 150 K/mm3 (130-400); RED BLOOD COUNT 2.51 M/mm3 (4.20-5.60); REDCELL DISTRIBUTION WIDTH-CV 17.4 % (11.5-14.5)
[2021-02-23 13:02] LABS: HEMATOCRIT 25.9 % (42.0-52.0); HEMOGLOBIN 8.8 g/dl (13.5-18.0); MEAN CORPUSCULAR HEMOGLOBIN 35 pg (27.0-31.0)
[2021-02-23 13:17] LABS: ALBUMIN 3.2 gm/dL (3.4-4.8); BILIRUBIN,TOTAL 1.1 mg/dL (0.2-1.2); C-REACTIVE PROTEIN 8.93 mg/dL (0.00-0.50); CALCIUM 9.6 mg/dL (8.4-10.2); CREATININE, serum 1.28 mg/dL (0.72-1.25); POTASSIUM 3.9 mmol/L (3.5-4.5)
[2021-02-23 13:28] LABS: TROPONIN-I 0.048 ng/mL (0.00-0.033)
[2021-02-23 13:44] LABS: BAND 28 % (0-10); LYMPHOCYTE 4 % (20.0-51.0); NEUTROPHILS 67 % (42.0-75.2); PLATELET ESTIMATE NORMAL (NORMAL)
[2021-02-23 13:45] LABS: OVALOCYTES 1+; TEAR DROP CELLS 1+
[2021-02-23 16:00] VITALS: BP 140/80; PULSE 87; TEMP 97.5
[2021-02-23 16:54] LABS: INR 1.5 (0.8-3.0); PROTHROMBIN TIME 17.2 SECONDS (9.7-12.8)
[2021-02-23] MEDS ORDERED: AMBIEN CR 12.12.5 MG PO (17:25)
[2021-02-23] MEDS ORDERED: DECADRON 4MG TAB4 MG PO (17:34)
--- NOTE | 2021-02-23 18:29 | NUR ---
Vancomycin Initial Dosing Pharmacy Note Ordering provider: Marie Jon DO Indication/duration: immunocompromised fever, 7 days LABS: SCr 1.28, CrCl~50, GFR 56 Recommendation: Give Vancomycin 1.5 gm IV x1 loading dose, then Vancomcyin 1 gm IV q12h. Pharmacy will continue to closely monitor and check a Vancomycin trough on 02/25/21. Loading dose: 1.5 grams Maintenance dose: 1 gram every 12 hours Trough goal: 15-20 ug/mL
--- NOTE | 2021-02-23 19:55 | NUR ---
pt had a 24g in the right forearm, however needs at CT scan. This RN placed a 22G in the Left Hand, started LR, gave Cefapime and started Vanc. Attempted to call CT for pt to go down to CT without an answer. Notified HEMANT Molina.
[2021-02-23 20:00] VITALS: BP 121/80; PULSE 98; TEMP 97.6
--- NOTE | 2021-02-23 20:06 | NUR ---
Patient was pecan picker by [facility] to get his head CT.
--- NOTE | 2021-02-23 22:30 | NUR ---
Patient is lying in bed, alert and oriened, VSS, no fever, no pain. Tele in place NSR. LR running at 100 ml /hr. Cooperativve. Assessment completed, medications provided. No further needs at this time. Call light within reach.
[2021-02-24 01:01] VITALS: BP 134/78; PULSE 86; TEMP 97.8
[2021-02-24 04:19] VITALS: BP 139/68; PULSE 64; TEMP 97.7
[2021-02-24 06:40] LABS: MEAN CELL VOLUME 102 fl (80.0-100.0); MEAN CORPUSCULAR HGB CONC 34 g/dl (33.0-37.0); MEAN PLATELET VOLUME 10.2 fl (7.4-10.4); PLATELET COUNT 136 K/mm3 (130-400); RED BLOOD COUNT 2.27 M/mm3 (4.20-5.60); REDCELL DISTRIBUTION WIDTH-CV 17.2 % (11.5-14.5)
[2021-02-24 06:47] LABS: HEMATOCRIT 23.2 % (42.0-52.0); HEMOGLOBIN 7.9 g/dl (13.5-18.0); MEAN CORPUSCULAR HEMOGLOBIN 35 pg (27.0-31.0)
[2021-02-24 06:54] LABS: INR 1.6 (0.8-3.0); PROTHROMBIN TIME 17.5 SECONDS (9.7-12.8)
[2021-02-24 06:55] LABS: CALCIUM 9.7 mg/dL (8.4-10.2); CREATININE, serum 1.16 mg/dL (0.72-1.25); POTASSIUM 4.5 mmol/L (3.5-4.5)
--- NOTE | 2021-02-24 07:23 | NUR ---
Patient has had a calm night. Patient cooperative but asking for let him rest. LR running 100ml/hr. Shift report will be given to dayshift RN.
[2021-02-24 07:45] LABS: BAND 29 % (0-10); LYMPHOCYTE 5 % (20.0-51.0); METAMYELOCYTE 1 % (0-0); NEUTROPHILS 62 % (42.0-75.2)
[2021-02-24 07:46] LABS: PLATELET ESTIMATE DECREASED (NORMAL); TEAR DROP CELLS 1+
[2021-02-24 08:09] VITALS: BP 121/72; PULSE 74; TEMP 97.9
--- NOTE | 2021-02-24 11:05 | NUR ---
THE PATIENT HAS REFUSED TO EAT ANYTHING STATES THAT HE IS NOT HUNGRY AND HAS NO DESIRE TO EAT. DISCUSSED WITH JUS BAR PORTER WHO HAS THE PATIENT ON HER SCHEDULE FOR TOMORROW MORNING.
[2021-02-24 11:57] VITALS: BP 138/79; PULSE 67; TEMP 98.1
--- NOTE | 2021-02-24 15:09 | NUR ---
SW met with the patient to discuss discharge plan. The patient lives in [place] with his , Ramesh (ph#[phone]). He reports needing some assistance with bathing and has a walker and wheelchair. He reports that his helps him with bathing. The patient states that he is no longer receiving home health, due to his insurance no longer authorizing it. Him and his report that they used [facility] and they would be interested in getting services started back up through them. The patient's PCP is Dr. Apollo Weir and he receives his medications from [facility]. The patient's DPOA-HC is in EMR and it designates his . The patient plans on returning home with his and home health. VON contacted and faxed a referral to Shauna at [facility]. Shauna reports that they are good to accept the patient. SW to continue to follow. *Discharge plan: home with and home health*
[2021-02-24 16:07] VITALS: BP 144/88; PULSE 81; TEMP 98.6
--- NOTE | 2021-02-24 18:20 | NUR ---
PT HAS HAD UNEVENTFUL DAY. TAKEN MEDICATIONS ORDERED, AND HAS HAD STABLE VS. THE PATIENT'S IS AT BEDSIDE. THE PATIENT STATES THAT HE HAS NEVER FELT POORLY, AND THAT HE IS FEELING GOOD AT THIS.
[2021-02-24 20:48] VITALS: BP 152/92; PULSE 72; TEMP 98.7
--- NOTE | 2021-02-24 21:20 | NUR ---
Patient is resting in bed, alert and oriented x 4, VSS, no fever. LR running at 50 ml/hr. Assessment completed, medications provided. No further needs at this time. Call light within reach.
[2021-02-25 00:35] VITALS: BP 136/87; PULSE 82; TEMP 97.9
[2021-02-25 04:24] VITALS: BP 146/86; PULSE 78; TEMP 98.4
[2021-02-25 06:57] LABS: BASO % 0.2 % (0.0-2.0); GRAN # 4.9 K/mm3 (1.4-6.5); GRAN % 89.2 % (42.2-75.2); LYMPH # 0.2 K/mm3 (1.2-3.4); LYMPH % 3.4 % (20.0-51.0); MEAN CELL VOLUME 106 fl (80.0-100.0); MEAN CORPUSCULAR HGB CONC 33 g/dl (33.0-37.0); MEAN PLATELET VOLUME 9.9 fl (7.4-10.4); MONO # 0.4 K/mm3 (0.1-0.6); MONO % 6.3 % (1.7-9.3); PLATELET COUNT 146 K/mm3 (130-400); REDCELL DISTRIBUTION WIDTH-CV 17.5 % (11.5-14.5)
[2021-02-25 07:06] LABS: HEMATOCRIT 24.4 % (42.0-52.0); HEMOGLOBIN 8.1 g/dl (13.5-18.0); MEAN CORPUSCULAR HEMOGLOBIN 35 pg (27.0-31.0)
--- NOTE | 2021-02-25 07:20 | NUR ---
Patient has had a calm night. No major issues. Continues with fluids infusing. No fever. Report given to dayshift nurse.
[2021-02-25 07:22] LABS: CALCIUM 8.6 mg/dL (8.4-10.2); CREATININE, serum 1.38 mg/dL (0.72-1.25); POTASSIUM 4.4 mmol/L (3.5-4.5)
[2021-02-25 07:59] VITALS: BP 138/93; PULSE 81; TEMP 98.8
[2021-02-25 11:33] VITALS: BP 163/95; PULSE 70; TEMP 98.5
[2021-02-25 16:00] VITALS: BP 157/91; PULSE 81; TEMP 98
[2021-02-25 21:00] VITALS: BP 161/88; PULSE 79; TEMP 97.8
[2021-02-26 00:21] VITALS: BP 144/73; PULSE 65; TEMP 97.7
[2021-02-26 05:59] VITALS: BP 121/79; PULSE 88; TEMP 98.8
--- NOTE | 2021-02-26 07:00 | NUR ---
Patient has had a calm night, uneventful. He has had high blood pressure.No fever. No pain, or diarrhea. Report given to day RN.
[2021-02-26 07:44] LABS: BASO % 0.1 % (0.0-2.0); EOS % 0.1 % (0-4.0); GRAN # 6.4 K/mm3 (1.4-6.5); GRAN % 79.5 % (42.2-75.2); LYMPH # 0.5 K/mm3 (1.2-3.4); LYMPH % 6.1 % (20.0-51.0); MEAN CELL VOLUME 103 fl (80.0-100.0); MEAN CORPUSCULAR HGB CONC 34 g/dl (33.0-37.0); MEAN PLATELET VOLUME 10.4 fl (7.4-10.4); MONO # 1.1 K/mm3 (0.1-0.6); MONO % 13.3 % (1.7-9.3); PLATELET COUNT 151 K/mm3 (130-400); RED BLOOD COUNT 2.54 M/mm3 (4.20-5.60); REDCELL DISTRIBUTION WIDTH-CV 17.4 % (11.5-14.5)
[2021-02-26 07:47] LABS: HEMATOCRIT 26.2 % (42.0-52.0); HEMOGLOBIN 8.8 g/dl (13.5-18.0); MEAN CORPUSCULAR HEMOGLOBIN 35 pg (27.0-31.0)
[2021-02-26 07:55] LABS: INR 3.2 (0.8-3.0); PROTHROMBIN TIME 35.6 SECONDS (9.7-12.8)
[2021-02-26 07:59] VITALS: BP 154/92; PULSE 89; TEMP 98.6
[2021-02-26 07:59] LABS: CALCIUM 8.8 mg/dL (8.4-10.2); CREATININE, serum 1.19 mg/dL (0.72-1.25); POTASSIUM 4.1 mmol/L (3.5-4.5)
[2021-02-26] MEDS ORDERED: COUMADIN4 MG PO (11:20)
[2021-02-26 12:11] VITALS: BP 143/72; PULSE 65; TEMP 98.4
[2021-02-26 12:32] LABS: CALCIUM 8.4 mg/dL (8.4-10.2); CREATININE, serum 1.21 mg/dL (0.72-1.25); POTASSIUM 3.9 mmol/L (3.5-4.5)
--- NOTE | 2021-02-26 14:23 | NUR ---
The patient is to discharge back home with his today, 02/26, with home health services for mcfp/PT/OT from [facility]. VON notified and faxed discharge orders to Shauna at [facility]. VON met with the patient and presented and read the IM form outloud to him. The patient verbalized understanding and gave VON approval to sign the form on his behalf. VON placed a copy in the patient's discharge folder. No additional needs at this time.
--- NOTE | 2021-02-26 15:17 | NUR ---
PT MET CRITERIA FOR DISCHARGE, VSS, NO FEVERS. IV REMOVED WITH NO COMPLICATIONS, CATHETER INTACT. DISCHARGE INSTUCTIONS GIVEN, PT VERBALIZED UNDERSTANDING. PT AWARE OF F/U APPTS. PT EDUCATED TO RETURN TO ED IF SYMPTOMS WORSEN. PT DC TO HOME VIA WHEELCHAIR ACCOMPANIED BY THIS NURSE.
== END 2021-02-26 14:30 | disposition home health service (06) | DRG 866 ==
LOC: COL.ER 11:42 → MEDICAL 14:28
PROVIDERS: Nurse Practitioner Primary Care; Physician Assistant; ADMIT Internal Medicine
DX: B34.1 Enterovirus infection, unspecified (principal); D84.9 Immunodeficiency, unspecified; I42.8 Other cardiomyopathies; G93.40 Encephalopathy, unspecified; R78.81 Bacteremia; B34.8 Other viral infections of unspecified site; Z85.79 Personal history of other malignant neoplasms of lymphoid, hematopoietic and related tissues; F32.A Depression, unspecified; I48.91 Unspecified atrial fibrillation; Z95.0 Presence of cardiac pacemaker; R79.89 Other specified abnormal findings of blood chemistry; D53.9 Nutritional anemia, unspecified; G25.0 Essential tremor; N18.9 Chronic kidney disease, unspecified; I27.20 Pulmonary hypertension, unspecified; G62.9 Polyneuropathy, unspecified; R13.10 Dysphagia, unspecified
CPT/HCPCS: 99223-AI; 99232-AI; 99239; J0692; J3370; J7030; J7050; J7120

== ENCOUNTER 2021-03-05 09:12 | Inpatient (IN) | payer BC, MEDICARE ==
[~2021-03-05] VITALS: Ht 167.6 cm; Wt 78.2 kg
[~2021-03-05 09:12] MED LIST changes: +AMBIEN CR 12.12.5 MG PO
[2021-03-05 11:01] LABS: MEAN CELL VOLUME 106 fl (80.0-100.0); MEAN CORPUSCULAR HGB CONC 32 g/dl (33.0-37.0); PLATELET COUNT 152 K/mm3 (130-400); RED BLOOD COUNT 2.28 M/mm3 (4.20-5.60); REDCELL DISTRIBUTION WIDTH-CV 17.2 % (11.5-14.5)
[2021-03-05 11:04] LABS: COLLECTION METHOD CLEAN CATCH
[2021-03-05 11:09] LABS: HEMATOCRIT 24.2 % (42.0-52.0); HEMOGLOBIN 7.7 g/dl (13.5-18.0); MEAN CORPUSCULAR HEMOGLOBIN 34 pg (27.0-31.0)
[2021-03-05 11:11] LABS: ALBUMIN 3.1 gm/dL (3.4-4.8); C-REACTIVE PROTEIN 6.77 mg/dL (0.00-0.50); CALCIUM 9.1 mg/dL (8.4-10.2); CREATININE, serum 1.11 mg/dL (0.72-1.25); POTASSIUM 4.3 mmol/L (3.5-4.5); TOTAL PROTEIN 5.7 gm/dL (6.2-8.1)
[2021-03-05 11:17] LABS: PH 7 (5-8); SQUAMOUS EPITHELIAL 0-2 /hpf (0-10); URINE APPEARANCE Clear (CLEAR/HAZY); URINE BACTERIA Rare (NONE SEEN); URINE BILIRUBIN Negative (NEGATIVE); URINE BLOOD Negative (NEGATIVE); URINE COLOR Yellow (YELLOW); URINE GLUCOSE Negative (NEGATIVE); URINE KETONE Negative (NEGATIVE); URINE LEUKOCYTE ESTERASE 1+ (NEGATIVE); URINE NITRATE Negative (NEGATIVE); URINE PROTEIN(semi-quant) Negative (NEGATIVE); URINE RBC 0-2 /hpf (0-2); URINE UROBILINOGEN Negative (NEGATIVE)
[2021-03-05 11:19] LABS: TROPONIN-I 0.031 ng/mL (0.00-0.033)
[2021-03-05 11:46] LABS: ANISOCYTOSIS 2+; BAND 10 % (0-10); EOSINOPHIL 13 % (0-4); HYPOCHROMIA 1+; LYMPHOCYTE 15 % (20.0-51.0); NEUTROPHILS 58 % (42.0-75.2); PLATELET ESTIMATE NORMAL (NORMAL)
[2021-03-05 13:38] LABS: INR 1.9 (0.8-3.0); PROTHROMBIN TIME 21.5 SECONDS (9.7-12.8)
--- NOTE | 2021-03-05 18:35 | NUR ---
Warfarin Initial Dosing Pharmacy Note Ordering Provider: Jonny Amaro MD Indication: Atrial fibrillation LABS: INR 1.9 Recommendation: Continue home dose of Warfarin 4 mg po qHS. Pharmacy will continue to closely monitor daily INR levels. Home Regimen: Warfarin 4 mg po qHS
--- NOTE | 2021-03-05 18:40 | NUR ---
Vancomycin Initial Dosing Pharmacy Note Ordering provider: Jonny Amaro MD Indication/duration: Cellulitis, 5 days LABS: SCr 1.11, CrCl~50, GFR 66 Recommendation: Will continue Vancomycin 1 gm IV q12h. Pharmacy will continue to closely monitor and check a Vancomycin trough on 01/05/21. Loading dose: 1.5 grams Maintenance dose: 1 gram every 12 hours Trough goal: 10-15 ug/mL
[2021-03-05 20:29] VITALS: BP 94/74; PULSE 63; TEMP 98.4
--- NOTE | 2021-03-05 22:32 | NUR ---
PT IS LAYING IN BED, FINISHED DINNER. PT IS PLEASANT AND COOPERATIVE. ASSESSMENT COMPLETED, ADMISSION COMPLETED AT SAME TIME. PT HAD NO FLUIDS RUNNING WHEN THIS RN CAME ON SHIFT DURING SHIFT CHANGE. THIS RN STARTED 1500 ML FLUID BOLUS. BOLUS COMPLETED. THIS RN THEN STARTED NORMAL SALINE RUNNING AT 150 ML/HR, ZOYSN HUNG AND GOING WITH FLUIDS. ALL MEDICATIONS GIVEN. PT DENIES PAIN, NO OTHER NEEDS AT THIS TIME. CALL LIGHT IN REACH,
[2021-03-06 00:50] VITALS: BP 114/70; PULSE 82; TEMP 100.9
--- NOTE | 2021-03-06 01:17 | NUR ---
PT SPIKED A FEVER OF 100.9. THIS RN GAVE TYENOL TO PATIENT, COVERED PT WITH BLANKETS. PT IS VISIBLY SHAKING, PT DENIES PAIN.
[2021-03-06 05:40] VITALS: BP 118/69; PULSE 98; TEMP 98.7
[2021-03-06 06:46] LABS: MEAN CELL VOLUME 106 fl (80.0-100.0); MEAN CORPUSCULAR HGB CONC 32 g/dl (33.0-37.0); MEAN PLATELET VOLUME 10.1 fl (7.4-10.4); PLATELET COUNT 108 K/mm3 (130-400); RED BLOOD COUNT 2.09 M/mm3 (4.20-5.60); REDCELL DISTRIBUTION WIDTH-CV 17.3 % (11.5-14.5)
[2021-03-06 06:52] LABS: INR 2.1 (0.8-3.0); PROTHROMBIN TIME 23.3 SECONDS (9.7-12.8)
[2021-03-06 07:17] LABS: ALBUMIN 2.5 gm/dL (3.4-4.8); BILIRUBIN,TOTAL 0.9 mg/dL (0.2-1.2); CALCIUM 8.2 mg/dL (8.4-10.2); CREATININE, serum 1.01 mg/dL (0.72-1.25); POTASSIUM 3.9 mmol/L (3.5-4.5); TOTAL PROTEIN 4.5 gm/dL (6.2-8.1)
[2021-03-06 07:28] LABS: HEMATOCRIT 22.2 % (42.0-52.0); HEMOGLOBIN 7.2 g/dl (13.5-18.0); MEAN CORPUSCULAR HEMOGLOBIN 34 pg (27.0-31.0)
[2021-03-06 08:00] VITALS: BP 121/78; PULSE 73; TEMP 98.3
--- NOTE | 2021-03-06 08:29 | NUR ---
PT ASSESSED. NO COMPLAINTS OF PAIN OR DYPSNEA. NO SIGNS OR SYMPTOMS OF DISTRESS. PT LYING IN BED. CALL LIGHT WITHIN REACH
[2021-03-06 09:18] LABS: ANISOCYTOSIS 1+; BAND 3 % (0-10); EOSINOPHIL 8 % (0-4); HYPOCHROMIA 1+; LYMPHOCYTE 18 % (20.0-51.0); NEUTROPHILS 65 % (42.0-75.2); PLATELET ESTIMATE DECREASED (NORMAL)
[2021-03-06 09:20] LABS: OVALOCYTES 1+
--- NOTE | 2021-03-06 11:29 | NUR ---
Initial visit; Patient thanked Endodontic Assistant for stopping and offering God's blessings.
[2021-03-06 11:36] VITALS: BP 132/69; PULSE 72; TEMP 98.6
[2021-03-06 15:16] VITALS: BP 114/73; PULSE 56; TEMP 99.3
--- NOTE | 2021-03-06 16:33 | NUR ---
Sw met with patient to complete intake. Patient lives in [facility] with dominique Mansfield [phone]. Patient utilizes a walker and independent with ADL, patient states his PCP is Dr. Weir and he uses [facility] for his pharmacy. Patient provides that his is noted to be his DPOA/HC. Patient states that his plan is to go to a long term facility before going back to his home to regain strength. Documentation sent to [facility] for review due to patient providing information of location to go. SW will continue to follow. DC plan: home vs SNF
[2021-03-06 19:33] VITALS: BP 137/89; PULSE 81; TEMP 99.5
--- NOTE | 2021-03-06 22:23 | NUR ---
PT IS LAYING IN BED. NO COMPLAINTS
--- NOTE | 2021-03-06 22:31 | NUR ---
PT IS LAYING IN BED. PLEASANT AND COOPERATIVE. TOOK ALL MEDICATIONS, NO COMPLAINTS AT THIS TIME.
[2021-03-07] VITALS (7 sets, daily range): BP systolic 123–144; BP diastolic 67–81; PULSE 54–70; TEMP 97.7–99.1
--- NOTE | 2021-03-07 00:21 | NUR ---
THIS RN WENT IN TO CHECK ON PATIENT AROUND 2330. THIS RN NOTED BLOOD IN BATHROOM AND LEADING TOWARDS BED. THIS RN ALSO NOTED IV TUBING AND ANAHI BANDAGE ON GROUND IN BATHROOM. THIS RN ASKED PT IF HE REMOVED HIS IV, STATED NO BUT HAND WAS COVERED IN BLOOD. THIS RN CLEANED PT HAND AND ROOM. ASSESSED FOR NEW IV PLACEMENT, COULD NOT FIND A SUITABLE VEIN. THIS RN CONTACTED CHARGE NURSE LUIS ANTONIO, UNABLE TO START IV. CHARGE NURSE CONTACTED BUSINESS DEVELOPMENT COORDINATOR HERIBERTO TO TRY TO START NEW IV SITE. ARIELLA CURRENTLY ON HOLD, WILL START VANC AFTER IV STARTED.
--- NOTE | 2021-03-07 01:48 | NUR ---
THIS RN HAD HEMANT STOVALL ATTEMPT AN IV START ON THIS PATIENT. HEMANT STOVALL DID NOT HAVE ANY SUCCESS. MANAGER TRADINGHEMANT SALMON ATTEMPTED TO CALL BARRERA SCHAFER, NO ANSWER.
--- NOTE | 2021-03-07 02:29 | NUR ---
BARRERA SCHAFER NOTIFIED ABOUT PT REMOVING IV, AND UNABLE TO GET NEW IV PLACED. BARRERA STATED THAT SHE WILL PUT IN AN ORDER IN FOR A CENTRAL LINE, AND NOT TO WORRY ABOUT EVENING ANTIBIOTICS DUE TO NO ACCESS. THIS RN WILL UPDATE SPECIAL DUTY NURSE.
--- NOTE | 2021-03-07 06:27 | NUR ---
PT HAD AN UNEVENTFUL NIGHT EXCEPT FOR IV SITE BEING LOST DUE TO DISLODGING. PT WAS CLEANED UP. MULTIPLE ATTEMPTS TO REPLACE IV WITH NO SUCCESS. CENTRAL LINE ORDER HAS BEEN PLACED TO ATTEMPT TODAY. 0000 AND 0300 ANTIBIOTICS WERE NOT GIVEN DUE TO NO IV ACCESS. BARRERA SCHAFER AND HEALTH RECORD TECHNICIAN AWARE. PHARMACY TO RETIME ANTIBIOTICS. CALL LIGHT IN REACH. NO OTHER NEEDS AT THIS TIME.
--- NOTE | 2021-03-07 07:52 | NUR ---
PT ASSESSED. NO COMPLAINTS OF PAIN OR DYSPNEA. NO SIGNS OR SYMPTOMS OFDISTRESS. CALL LIGHT WIIN REACH
[2021-03-07 08:03] LABS: MEAN CORPUSCULAR HGB CONC 30 g/dl (33.0-37.0); MEAN PLATELET VOLUME 10.3 fl (7.4-10.4); PLATELET COUNT 125 K/mm3 (130-400); RED BLOOD COUNT 2.27 M/mm3 (4.20-5.60); REDCELL DISTRIBUTION WIDTH-CV 16.9 % (11.5-14.5)
[2021-03-07 08:13] LABS: INR 2.4 (0.8-3.0); PROTHROMBIN TIME 26.6 SECONDS (9.7-12.8)
[2021-03-07 08:17] LABS: ALBUMIN 2.8 gm/dL (3.4-4.8); BILIRUBIN,TOTAL 0.7 mg/dL (0.2-1.2); CREATININE, serum 1.06 mg/dL (0.72-1.25); POTASSIUM 3.4 mmol/L (3.5-4.5); TOTAL PROTEIN 5.1 gm/dL (6.2-8.1)
[2021-03-07 09:15] LABS: HEMATOCRIT 25.4 % (42.0-52.0); HEMOGLOBIN 7.7 g/dl (13.5-18.0); MEAN CELL VOLUME 112 fl (80.0-100.0); MEAN CORPUSCULAR HEMOGLOBIN 34 pg (27.0-31.0)
[2021-03-07 15:35] LABS: BAND 1 % (0-10); EOSINOPHIL 12 % (0-4); LYMPHOCYTE 27 % (20.0-51.0); NEUTROPHILS 54 % (42.0-75.2)
[2021-03-07 15:36] LABS: ANISOCYTOSIS 1+; HYPOCHROMIA 3+; PLATELET ESTIMATE DECREASED (NORMAL)
[2021-03-07 15:37] LABS: SCHISTOCYTES 1+
--- NOTE | 2021-03-07 22:38 | NUR ---
PT ASSESSMENT COMPLETED. PT TOOK ALL MEDICATIONS PRESCRIBED. DESCRIBED NORMAL CHRONIC PAIN, REQUESTED TRAMADOL. PT DENIES ANY SHIVERS OR SIGNS OF A FEVER, NO OTHER COMPLAINTS. PT STILL HAS NO IV ACCESS, AWARE. COUMADIN HELD TONIGHT FOR POSSIBLE PICC PLACEMENT TOMORROW IF NEEDED. NO OTHER NEEDS AT THIS TIME.
[2021-03-08 05:04] VITALS: BP 132/79; PULSE 76; TEMP 98.8
[2021-03-08 06:49] LABS: INR 2.7 (0.8-3.0); PROTHROMBIN TIME 29.8 SECONDS (9.7-12.8)
--- NOTE | 2021-03-08 07:06 | NUR ---
PT HAD AN UNEVENTFUL NIGHT. TMAX WAS 99.1, PT DENIED ANY CHILLS OR PAIN. CALL LIGHT IN REACH. NO OTHER NEEDS.
[2021-03-08 07:44] VITALS: BP 113/72; PULSE 62; TEMP 98.8
[2021-03-08 07:46] LABS: MEAN CORPUSCULAR HGB CONC 32 g/dl (33.0-37.0); MEAN PLATELET VOLUME 10.5 fl (7.4-10.4); PLATELET COUNT 116 K/mm3 (130-400); RED BLOOD COUNT 2.55 M/mm3 (4.20-5.60); REDCELL DISTRIBUTION WIDTH-CV 16.4 % (11.5-14.5)
[2021-03-08 07:50] LABS: PATHOLOGY DIFF REVIEW OK
[2021-03-08 07:59] LABS: ALBUMIN 2.8 gm/dL (3.4-4.8); BILIRUBIN,TOTAL 0.6 mg/dL (0.2-1.2); CALCIUM 8.3 mg/dL (8.4-10.2); CREATININE, serum 0.96 mg/dL (0.72-1.25); POTASSIUM 3.5 mmol/L (3.5-4.5); TOTAL PROTEIN 5.2 gm/dL (6.2-8.1)
[2021-03-08 08:03] LABS: HEMATOCRIT 26.2 % (42.0-52.0); HEMOGLOBIN 8.5 g/dl (13.5-18.0); MEAN CELL VOLUME 103 fl (80.0-100.0); MEAN CORPUSCULAR HEMOGLOBIN 33 pg (27.0-31.0)
[2021-03-08 09:35] LABS: BAND 13 % (0-10); EOSINOPHIL 8 % (0-4); LYMPHOCYTE 22 % (20.0-51.0); NEUTROPHILS 49 % (42.0-75.2); OVALOCYTES 1+; TEAR DROP CELLS 1+
[2021-03-08 09:36] LABS: PLATELET ESTIMATE DECREASED (NORMAL)
--- NOTE | 2021-03-08 09:54 | NUR ---
Followed up with the patient. He misunderstood the SNF conversation and would not like to go their if he could avoid it but is happy to go if needed. PT recommends going home with and the patient is happy with this choice and would like to be established with [facility]. Contacted Shauna with [facility] and faxed patient's information.
[2021-03-08] MEDS ORDERED: AMOXICILLIN 8751 TAB PO ×2 (10:32)
[2021-03-08] MEDS ORDERED: MONODOX100 PO (10:57)
[2021-03-08 12:08] VITALS: BP 123/72; PULSE 58; TEMP 100.2
--- NOTE | 2021-03-08 14:52 | NUR ---
Patient's dc orders for HH PT/OT usp faxed to Shauna at [facility].
[2021-03-08 15:50] VITALS: BP 127/75; PULSE 56; TEMP 98.8
--- NOTE | 2021-03-08 18:00 | NUR ---
Scheduled medications given. Shift assessment performed. Patient on RA and denies any pain or discomfort. Scored a 4 on CIWA scale earlier in shift due to tremors. PA notified, PA informed this RN that patient has baseline tremors. Patient deemed fit for dischare. Discharge education/instructions given. All questions answered. Patient denies any further needs. to metal pickling equipment operator patient at 1900. VSS. Patient A&O.
--- NOTE | 2021-03-08 19:00 | NUR ---
Patient escorted out of building via wheelchair escorted by [facility] Staff. transporting home.
== END 2021-03-08 19:00 | disposition home health service (06) | DRG 872 ==
LOC: COL.ER 09:12 → MEDICAL 13:25
PROVIDERS: Emergency Medicine; ADMIT Internal Medicine
DX: A41.9 Sepsis, unspecified organism (principal); C90.00 Multiple myeloma not having achieved remission; E87.2 Acidosis; I42.8 Other cardiomyopathies; D84.9 Immunodeficiency, unspecified; L03.116 Cellulitis of left lower limb; R65.20 Severe sepsis without septic shock; I48.91 Unspecified atrial fibrillation; G62.9 Polyneuropathy, unspecified; F32.A Depression, unspecified; I27.20 Pulmonary hypertension, unspecified; N18.9 Chronic kidney disease, unspecified; G47.00 Insomnia, unspecified; I12.9 Hypertensive chronic kidney disease with stage 1 through stage 4 chronic kidney disease, or unspecified chronic kidney disease; D53.9 Nutritional anemia, unspecified; G25.0 Essential tremor; Z79.01 Long term (current) use of anticoagulants; Z95.0 Presence of cardiac pacemaker; Z23 Encounter for immunization
CPT/HCPCS: 99223-AI; 99232-AI; 99233-AI; 99239; J0696; J2405; J2543; J3370; J7030; J7050

== ENCOUNTER → 2021-03-11 | Outpatient (CLI) | payer BC ==
[~2021-03-11] MED LIST changes: +AMOXICILLIN 8751 TAB PO; +MONODOX100 PO
[2021-03-11 13:27] LABS: MEAN CELL VOLUME 100 fl (80.0-100.0); MEAN CORPUSCULAR HGB CONC 33 g/dl (33.0-37.0); MEAN PLATELET VOLUME 10.4 fl (7.4-10.4); PLATELET COUNT 122 K/mm3 (130-400); RED BLOOD COUNT 2.18 M/mm3 (4.20-5.60); REDCELL DISTRIBUTION WIDTH-CV 16.1 % (11.5-14.5)
[2021-03-11 14:11] LABS: HEMATOCRIT 21.7 % (42.0-52.0); HEMOGLOBIN 7.2 g/dl (13.5-18.0); MEAN CORPUSCULAR HEMOGLOBIN 33 pg (27-31)
== END ==
LOC: COL.LAB 11:51
DX: D70.9 Neutropenia, unspecified (principal)

== ENCOUNTER 2021-03-14 00:35 | Emergency (ER) | payer BC | END 2021-03-14 03:20 | disposition E | LOC: COL.ER 00:35 | DX: I46.9 Cardiac arrest, cause unspecified (principal); I48.91 Unspecified atrial fibrillation; I10 Essential (primary) hypertension; Z79.01 Long term (current) use of anticoagulants; Z79.899 Other long term (current) drug therapy ==